=== PATIENT | female | born 1995 | race Caucasian/White ===

== ENCOUNTER 2018-07-05 14:06 | Emergency (ER) | payer OTHER, SELFPAY ==
[2018-07-05 14:07] VITALS: BP 111/63; PULSE 95; RESP 18; TEMP 36.7; O2SAT 95; BMI 41.0
[2018-07-05] MEDS: Lidocaine/Epi/Tetracaine 50 ML 1 APPLIC TOPICAL (15:25)
[2018-07-05] MEDS: Propofol 200 MG/20 ML Vial IV BOLUS (16:10)
[2018-07-05 16:15] VITALS: BP 110/65; BP 90/63; PULSE 84; PULSE 94; RESP 14; RESP 16; O2SAT 98; O2SAT 99
[2018-07-05 16:22] VITALS: BP 90/63; PULSE 86; RESP 16; O2SAT 97
[2018-07-05 16:26] VITALS: BP 94/64; PULSE 82; RESP 16; O2SAT 99
[2018-07-05] MEDS: HYDROcodone Bitartrate/Apap 5/325 Tablet PO (16:30)
[2018-07-05] MEDS: Ketorolac 30 MG/ML Syringe IV (16:31)
[2018-07-05 16:36] VITALS: BP 94/84; PULSE 84; RESP 16; O2SAT 99
--- NOTE | 2018-07-05 16:41 | ED.VISSUMM ---
- ER Visit Summary Date of Service: 07/05/18 Chief Complaint: Abscess History of Present Illness: The patient is a 22 F who noted a pilonidal abscess 1 week ago. She was seen in urgent care on the and started on Bactrim. She was seen again on the and had an I&D performed. She states yesterday it was feeling better, but last evening pain increased significantly. She was seen by her PCP and then at the surgery office today. Patient needs further I&D, but is requesting procedural sedation for this. She was sent to the emergency room. Physical Examination: Vital signs are unremarkable. Patient is lying prone in the bed. Heart is regular rate and rhythm. Lung sounds clear. Abdomen is soft nontender. Skin examination was a pilonidal abscess measuring approximately 1 x 4 cm without sign of surrounding cellulitis. Test Results: [] Emergency Department Course and Treatment: Patient was consented for I&D along with procedural sedation. Propofol was given by Dr. Chaves with a total of 130 mg given. I&D was performed after let and 1 cc of lidocaine. A 1.5 cm incision was made with a #11 blade. There is return of foul-smelling bloody pus. Wound was irrigated. Dressing is applied. She is given an injection of Toradol and 1 tab of p.o. Maben for pain. She will continue her antibiotics and she will be written a short course of Maben for pain. She will follow-up with Dr. Ybarra in the office. Treatment Plan: [] Disposition: Discharge Impression: 1. Pilonidal cyst status post I&D 2. Procedural sedation by ED physician This note was generated with [employer] dictation software. It may contain incorrect words, spelling, and punctuation that were not noted in review of the chart prior to signing ED Disposition - Plan for ED Patient: Chief Complaint: Abscess Referrals: Demetria Fernandez MD [Primary Care Provider] -
--- NOTE | 2018-07-05 16:43 | ED.DEP ---
ED Disposition - Plan for ED Patient: Disposition: Home or Assisted Living Chief Complaint: Abscess Instructions: ED Cyst Pilonidal Infected IandD Prescriptions: Hydrocodone Bitart/Apap 5-325 [[place] 5MG-325MG] 1 tablet PO Q4H PRN PRN 2 Days #10 tablet PRN Reason: Pain Referrals: Demetria Fernandez MD [Primary Care Provider] - 1 Week
--- NOTE | 2018-07-05 16:48 | DCINST.ED_ITS ---
ED Disposition - Plan for ED Patient: Disposition: Home or Assisted Living Chief Complaint: Abscess Instructions: ED Cyst Pilonidal Infected IandD Prescriptions: Hydrocodone Bitart/Apap 5-325 [[place] 5MG-325MG] 1 tablet PO Q4H PRN PRN 2 Days #10 tablet PRN Reason: Pain Referrals: Demetria Fernandez MD [Primary Care Provider] - 1 Week
--- NOTE | 2018-07-05 17:01 | DCINST.ED_ITS ---
ED Disposition - Plan for ED Patient: Disposition: Home or Assisted Living Chief Complaint: Abscess Instructions: ED Cyst Pilonidal Infected IandD Prescriptions: Hydrocodone Bitart/Apap 5-325 [[place] 5MG-325MG] 1 tablet PO Q4H PRN PRN 2 Days #10 tablet PRN Reason: Pain Referrals: Demetria Fernandez MD [Primary Care Provider] - 1 Week Prasad Sigala MD [STAFF PHYSICIAN] - 1 Week
[2018-07-05 17:03] VITALS: BP 106/58; PULSE 86; RESP 16; O2SAT 98
== END 2018-07-05 17:08 | disposition home or self-care (01) ==
PROVIDERS: Emergency Provider Emergency Medicine; Family Provider Internal Medicine; PCP Internal Medicine
DX: L05.01 Pilonidal cyst with abscess (principal); B96.89 Other specified bacterial agents as the cause of diseases classified elsewhere; M79.7 Fibromyalgia; F31.9 Bipolar disorder, unspecified; F60.3 Borderline personality disorder; Z72.0 Tobacco use
CPT/HCPCS: 10080; 96374; 99284; J7030; A4216

== ENCOUNTER 2018-07-09 10:26 | Emergency (ER) | payer OTHER, SELFPAY ==
[2018-07-09 10:29] VITALS: BP 110/45; PULSE 120; RESP 16; TEMP 37.6; O2SAT 98; BMI 40.1
[2018-07-09 10:39] VITALS: PULSE 113; RESP 18; O2SAT 97
[2018-07-09] MEDS: 0.9% Normal Saline 1,000 ML 1000 ML IV (11:12)
--- NOTE | 2018-07-09 11:17 | RAD_ITS ---
STUDY: X-RAY CHEST REASON FOR EXAM: Female, 22 years old. Cough and fever. TECHNIQUE: PA and lateral views of the chest. COMPARISON: None. FINDINGS: The lungs are clear and expanded. There is no demonstrated pleural abnormality. Normal size heart. Normal mediastinum and dar. Normal visualized pulmonary arteries. Normal visualized aortic arch and descending thoracic aorta. Normal visualized thoracic spine. Normal visualized ribs, clavicles, and shoulders. There is no demonstrated abnormality of the visualized soft tissue structures of the upper abdomen. RAD/Chest PA and Lateral IMPRESSION: Normal x-ray examination of the chest. Electronically Signed: Chan Melara MD at 12:24 EDT Tel [phone], Service support ,
[2018-07-09 11:29] LABS: Absolute Lymphocyte Count 0.65 X10^3/ul (0.83-4.51); Absolute Neutrophil Count 3.5 X10^3/uL (2.0-7.7); Basophil# 0.01 X10^3/uL; Basophil% 0.2 % (0-1); Eosinophil# 0.15 X10^3/uL; Eosinophils% 3.3 % (0-5); Hematocrit 43.2 % (37-47); Hemoglobin 14.6 g/dl (12.0-15.0); Lymphocyte # 0.65 X10^3/ul (4.0); Lymphocyte % 14.1 % (19-41); Mean Corp Hgb Conc 33.8 g/gl (32-36); Mean Corpuscular Hgb 28.7 pg (27.0-32.0); Mean Platelet Vol. 10.1 fl (6.2-12.0); Monocyte# 0.26 X10^3/uL; Monocyte% 5.7 % (0-10); Neutrophil # 3.49 X10^3/uL (2.7-7.7); Neutrophil % 75.8 % (47-70); Platelet Count 278 K/mm3 (150-450); RBC Distribution Width SD 40.2 fl (35.1-43.9); Red Blood Count 5.08 M/mm3 (4.2-5.4); White Blood Count 4.6 K/mm3 (4.4-11.0)
[2018-07-09 11:31] LABS: Mucous, Urine 0 SEEN /hpf (<or=2+); POSITIVE COUNT NO; POSITIVE DIFFERENTIAL NO; POSITIVE MORPHOLOGY NO; Red Blood Cells-Urine 0 SEEN /hpf (0-5)
[2018-07-09 11:35] LABS: Color, Urine Yellow (Yellow); Glucose, Dipstick Normal (Normal); Ketone-Dipstick Negative (Negative); Leukocyte Esterase-Dipstick 500 /ul (Negative); Nitrite-Dipstick Negative (Negative); Occult Blood-Urine 50 /ul (Negative); Protein-Dipstick 30 mg/dl (Negative); Specific Gravity, Urine 1.015 (1.002-1.030); Urine Clarity Sl. Cloudy (Clear); Urine Urobilinogen 1 mg/dl (Normal)
[2018-07-09 11:36] LABS: Internal QC Validated? YES +Cl - CLEAR BKGD; Pregnancy, Urine Negative Negative
[2018-07-09 11:37] LABS: Urine Bilirubin Dipstick 1 mg/dL (Negative)
[2018-07-09 11:40] LABS: ALB/GLOB Ratio 0.9 RATIO (0.9-2.4); AST(SGOT) 23 U/L (15-37); Alanine Aminotransfer ALT/SGPT 26 U/L (13-56); Albumin, Serum 3.9 g/dL (3.2-5.0); Alkaline Phosphatase 96 U/L (45-117); Anion Gap 8 (5-15); BUN 14 mg/dL (7-18); BUN/Creat Ratio 11.8 RATIO (10-20); Calcium,Total 8.8 mg/dL (8.5-10.1); Chloride 100 mmol/L (98-107); Creatinine, Serum 1.19 mg/dL (0.55-1.02); EST Glomerular Filtration Rate 60 mL/min (>60); Est Glom Filt Rate - Afr Amer 72 mL/min (>60); Estimated Creatinine Clearance 58.15 ml/min; Globulin 4.3 g/dL (2.2-4.2); Glucose 83 mg/dL (74-106); Potassium 4.2 mmol/L (3.5-5.1); Protein, Total 8.2 g/dL (6.4-8.2); Sodium Level 134 mmol/L (136-145)
[2018-07-09 11:41] LABS: White Blood Cells 0-5 SEEN /hpf (0-5)
[2018-07-09 11:42] LABS: Bacteria 1+ /hpf (None Seen); Squamous Epithelial Cells - UA 5-10 SEEN /hpf (5-10)
--- NOTE | 2018-07-09 12:11 | ED.VISSUMM ---
- ER Visit Summary Date of Service: 07/09/18 Chief Complaint: Fever History of Present Illness: The patient is a 22 F who presents with a fever that began this morning. Patient states her temperature at home was 102.1. Patient took Tylenol approximately 2 hours prior to arrival. Patient had incision and drainage of a pilonidal cyst days ago. Patient is currently on Bactrim. Patient admits to some nausea and vomiting. Patient denies any urinary complaints. Patient denies any chest pain or shortness of breath. Patient admits to a slight cough. Patient admits to occasional headaches. Physical Examination: Vital signs are stable except for mild tachycardia of 120. Patient is afebrile here with a temperature of 99.6. Patient is in no acute distress. Oral mucosa is pink and moist. Neck is supple. Trachea is midline. There is no JVD or lymphadenopathy noted. Heart was regular and tachycardic. Lungs are clear and equal bilaterally. There is good respiratory effort noted. Abdomen is soft. Bowel sounds are normal. There is no tenderness. There is no guarding noted. Skin is warm and dry. There is an healing incision over the sacrum in the midline. There is no active drainage. There is no erythema. There is minimal tenderness. The remaining physical exam is within normal limits. Test Results: CBC, basic metabolic profile, urinalysis, and influenza swabs were obtained and were essentially within normal limits. PA and lateral chest x-ray was obtained. There is no evidence of acute cardiopulmonary process. Emergency Department Course and Treatment: Patient was given IV fluids here. Patient was instructed to continue her Bactrim as previously prescribed. Patient was instructed to follow-up with her primary care physician in 5-7 days. Patient and family understood and were agreeable with the plan. All questions were answered. Disposition: Discharge home Impression: Acute febrile illness This note was generated with [employer] dictation software. It may contain incorrect words, spelling, and punctuation that were not noted in review of the chart prior to signing ED Disposition - Plan for ED Patient: Disposition: Home or Assisted Living Chief Complaint: Fever Diagnosis: Acute febrile illness Instructions: ED Fever Unconf Cause Referrals: Demetria Fernandez MD [Primary Care Provider] -
[2018-07-09 12:38] VITALS: BP 121/51; PULSE 95; RESP 18; TEMP 36.9; O2SAT 97
== END 2018-07-09 12:39 | disposition home or self-care (01) ==
PROVIDERS: Emergency Provider Emergency Medicine; Family Provider Internal Medicine; PCP Internal Medicine
DX: R50.9 Fever, unspecified (principal); F32.9 Major depressive disorder, single episode, unspecified; F41.9 Anxiety disorder, unspecified; E66.9 Obesity, unspecified; Z68.41 Body mass index [BMI] 40.0-44.9, adult; Z79.899 Other long term (current) drug therapy; Z72.0 Tobacco use
CPT/HCPCS: 71046; 80053; 81001; 81025; 85025; 87804; 96360; 99283; J7030

== ENCOUNTER 2018-07-13 00:02 | Emergency (ER) | payer OTHER, SELFPAY ==
[2018-07-13 00:04] VITALS: BP 134/75; PULSE 124; RESP 24; TEMP 36.9; O2SAT 100; BMI 41.4
[2018-07-13 00:13] VITALS: BP 161/81; PULSE 119; RESP 16; O2SAT 97
[2018-07-13 00:38] LABS: Absolute Lymphocyte Count 0.88 X10^3/ul (0.83-4.51); Absolute Neutrophil Count 2.6 X10^3/uL (2.0-7.7); Basophil# 0.01 X10^3/uL; Basophil% 0.3 % (0-1); Eosinophils% 2.6 % (0-5); Hematocrit 37.6 % (37-47); Hemoglobin 13.1 g/dl (12.0-15.0); Lymphocyte # 0.88 X10^3/ul (4.0); Lymphocyte % 23.2 % (19-41); Mean Corp Hgb Conc 34.8 g/gl (32-36); Mean Corpuscular Hgb 28.4 pg (27.0-32.0); Mean Corpuscular Volume 81.6 fL (81-99); Monocyte# 0.22 X10^3/uL; Monocyte% 5.8 % (0-10); Neutrophil # 2.56 X10^3/uL (2.7-7.7); Neutrophil % 67.6 % (47-70); Platelet Count 296 K/mm3 (150-450); RBC Distribution Width CV 12.7 % (11.6-14.6); RBC Distribution Width SD 37.7 fl (35.1-43.9); Red Blood Count 4.61 M/mm3 (4.2-5.4); White Blood Count 3.8 K/mm3 (4.4-11.0)
--- NOTE | 2018-07-13 00:38 | ED.DCSUM_ITS ---
- ER Visit Summary Date of Service: 07/13/18 Chief Complaint: Body pain, fever History of Present Illness: The patient is a 22 F who was seen for sedation and I&D of a pilonidal cyst in the ER on July 05. She was started on Bactrim. Patient returned on the with fevers up to 102 and generalized rash. Her workup was unremarkable. Patient states the rash is somewhat improved. She complains of generalized body aches and pains and thinks that all of this recently has flared up her lupus. She states her fevers are improving but not completely resolved. She is post to follow-up with her doctor tomorrow for reevaluation of her pilonidal cyst. Physical Examination: Blood pressure is 134/75, temperature 98.5, heart rate 124, respiratory rate 24, pulse ox 100% on room air. Patient is sitting upright in bed. She is anxious and tearful. Head neck examination is unremarkable. Heart is regular rhythm but tachycardic. Lung sounds are clear. Abdomen is soft nontender. Skin examination reveals generalized skin erythema over her trunk and extremities. There is no evidence of urticaria. There are no target lesions or vesicles. Test Results: CBC is normal other than a white count of 3.8. Chemistry studies reveal a sodium of 132 and potassium 3.4. Urinalysis shows no sign of acute infection. Emergency Department Course and Treatment: Patient was initially given IV fluids, Toradol, and Ativan. She complained that this made her pain worse and was given p.o. [place]. Area of previous I&D for her pilonidal cyst was cleansed and examined. There is a small amount of serosanguineous drainage. There is no sign of infection. Dressing was reapplied. I explained to the patient that I am concerned that she has a Bactrim drug rash and fever. She is insistent that this is secondary to her lupus. I advised her that she could stop her Bactrim. We will give her a prednisone taper for her lupus flare. She was given names of rheumatologists at [facility] whom she has seen in the past for follow-up. Treatment Plan: [] Disposition: Discharge Impression: 1. Bactrim drug reaction 2. Hypokalemia, mild 3. Lupus flare This note was generated with [employer] software. It may contain incorrect words, spelling, and punctuation that were not noted in review of the chart prior to signing ED Disposition - Plan for ED Patient: Disposition: Home or Assisted Living Chief Complaint: Shortness of Breath Instructions: ED Systemic Lupus Erythematosis Prescriptions: Prednisone 10 mg PO DAILY #63 tablet Referrals: Demetria Fernandez MD [Primary Care Provider] - Additional Instructions: List of rheumatologists provided
[2018-07-13 00:39] LABS: POSITIVE COUNT NO; POSITIVE DIFFERENTIAL NO; POSITIVE MORPHOLOGY NO
[2018-07-13] MEDS: 0.9% Normal Saline 1,000 ML 150 ML IV (00:40)
[2018-07-13] MEDS: LORazepam 2 MG/ML Syringe 0.5 MG IV (00:40)
[2018-07-13] MEDS: Ketorolac 30 MG/ML Syringe IV (00:40)
--- NOTE | 2018-07-13 01:04 | ED.RN ---
PT C/O PAIN IS WORSE AND IT'S SHOOTING AND MOVING ALL OVER NOW. WILL NOTIFIED DR ARIAS
[2018-07-13 01:05] LABS: Anion Gap 10 (5-15); BUN 13 mg/dL (7-18); BUN/Creat Ratio 16.9 RATIO (10-20); Calcium,Total 8.3 mg/dL (8.5-10.1); Chloride 99 mmol/L (98-107); Creatinine, Serum 0.77 mg/dL (0.55-1.02); EST Glomerular Filtration Rate 99 mL/min (>60); Est Glom Filt Rate - Afr Amer 119 mL/min (>60); Estimated Creatinine Clearance 89.87 ml/min; Glucose 91 mg/dL (74-106); Potassium 3.4 mmol/L (3.5-5.1); Sodium Level 132 mmol/L (136-145)
--- NOTE | 2018-07-13 01:10 | ED.RN ---
DR ARIAS NOTIFIED OF PT PAIN ISSUES
[2018-07-13] MEDS: HYDROcodone Bitartrate/Apap 5/325 Tablet PO ×2 (01:18→01:59)
--- NOTE | 2018-07-13 01:21 | ED.RN ---
PT STATES NOBODY EVERY ASKED ME ABOUT ALL MY SYMPTOMS. DR ARIAS NOTIFIED
--- NOTE | 2018-07-13 01:33 | ED.DEP ---
ED Disposition - Plan for ED Patient: Disposition: Home or Assisted Living Chief Complaint: Shortness of Breath Instructions: ED Systemic Lupus Erythematosis Prescriptions: Prednisone 10 mg PO DAILY #63 tablet Referrals: Demetria Fernandez MD [Primary Care Provider] - Additional Instructions: List of rheumatologists provided
[2018-07-13 01:54] LABS: Color, Urine Yellow (Yellow); Glucose, Dipstick Normal (Normal); Ketone-Dipstick 50 mg/dl (Negative); Leukocyte Esterase-Dipstick 25 /ul (Negative); Nitrite-Dipstick Negative (Negative); Occult Blood-Urine 150 /ul (Negative); Protein-Dipstick 30 mg/dl (Negative); Specific Gravity, Urine 1.015 (1.002-1.030); Urine Clarity Sl. Cloudy (Clear); Urine Urobilinogen 1 mg/dl (Normal)
[2018-07-13 01:55] LABS: Urine Bilirubin Dipstick 1 mg/dL (Negative)
[2018-07-13 02:01] LABS: Squamous Epithelial Cells - UA 5-10 SEEN /hpf (5-10)
[2018-07-13 02:02] LABS: Bacteria RARE /hpf (None Seen); Mucous, Urine 1+ /hpf (<or=2+); White Blood Cells 0-5 SEEN /hpf (0-5)
[2018-07-13 02:03] VITALS: BP 127/76; PULSE 127; RESP 16; O2SAT 98
[2018-07-13 02:04] LABS: Red Blood Cells-Urine 0-5 SEEN /hpf (0-5)
--- NOTE | 2018-07-14 10:29 | CM.ED ---
ED CALLBACK: Follow-up call placed to patient. Patient states she has not yet had a chance to berry picker her prescription. Patient states she cannot find her thermometer, so she is unsure if she has a fever. However, she states the pain is subsiding a little. Patient states she will be able to berry picker her prescription today and denies any needed assistance or questions.
== END 2018-07-13 02:04 | disposition home or self-care (01) ==
PROVIDERS: Emergency Provider Emergency Medicine; Family Provider Internal Medicine; PCP Internal Medicine
DX: R52 Pain, unspecified (principal); R50.2 Drug induced fever; L27.0 Generalized skin eruption due to drugs and medicaments taken internally; T37.0X5A Adverse effect of sulfonamides, initial encounter; E87.6 Hypokalemia; M32.9 Systemic lupus erythematosus, unspecified; M79.7 Fibromyalgia; F31.9 Bipolar disorder, unspecified; Z79.899 Other long term (current) drug therapy; Z72.0 Tobacco use
CPT/HCPCS: 80048; 81001; 85025; 96361; 96374; 96375; 99284; J7030; A4216

== ENCOUNTER 2018-10-11 07:39 | Day surgery (SDC) | payer OTHER, SELFPAY ==
--- NOTE | 2018-10-11 | PILCYST_PTH ---
PATIENT: INNA COPELAND [place] [facility] [id number] AGE/SX: 22/F ROOM: RE10/11/[address]: Dr. Prasad Sigala MD : [id number] BED: DIS: 10/11/2018 SPEC #: [id number] RECD: 10/11/18 11:41 STATUS: AIME DEBBIE #: [id number] FEMI: 10/11/18 00:[address]: Prasad Sigala DEPT: SURGICAL PATHOLOGY RECD BY: Ilan Metzger ENTERED: 10/11/18 11:44 SP TYPE: Pilonidal OTHR DR: MD Demetria De Jesus MD Tissues: PILONIDAL TISSUE Procedures: Surgery Specimen Level III HEADER OPERATION: Excision pilonidal cyst PRE-OP DIAGNOSIS: Pilonidal cyst without abscess TISSUE SUBMITTED: Pilonidal cyst and sinus tract MICROSCOPIC DIAGNOSIS Pilonidal cyst and sinus tract, excision: Consistent with inflamed pilonidal cyst and sinus tract with associated reactive change. AM:devon 10/12/18 MICROSCOPIC DESCRIPTION Slides are reviewed. GROSS DESCRIPTION Received in fixative is one container labeled with the patient's name and designated pilonidal sinus tract. The specimen consists of an elongated fragment of pink-hicks soft tissue with attached fibrofatty tissue measuring 5.5 x 2 cm and a depth of excision measuring 2 cm. The cutaneous surface contains an ulcerated/exposed area measuring 2 x 0.5 cm in greatest dimension. Serial sections do not reveal mass lesions. Under Cutter sections are submitted in two cassettes. / AM:devon 10/11/18 TC:2 CPT: 09925
[2018-10-11 08:05] VITALS: BP 103/49; PULSE 70; RESP 16; TEMP 37.1; O2SAT 98; BMI 33.7
[2018-10-11 08:06] LABS: Internal QC Validated? YES +Cl - CLEAR BKGD; Pregnancy, Urine Negative Negative
[2018-10-11] MEDS: Bupivacaine Mpf 0.5% 30 ML VIAL (10:00)
[2018-10-11] MEDS: Neomycin/Bacitracin/Polymyxin Ointment 1 APPLIC (10:10)
--- NOTE | 2018-10-11 10:10 | OP.PCM_ITS ---
Report of Operation Date of Procedure: 10/11/18 Pre-Operative Diagnosis: recurrent pilonidal cyst Post-Operative Diagnosis: recurrent pilonidal cyst Surgery/Procedure Performed:: excision of pilonidal cyst center director lead teacher: None Type of Anesthesia:: General Anesthesiologist: Roger Osullivan Specimen's removed: pilonidal cyst and tract Estimated Blood Loss (mL): 20 Fluids Replaced: 400 Description of Procedure: The patient was brought to the operating suite. Sign in was performed verifying patient, site, procedure, position, and DVT prophylaxis with SCDs. Patient received 100 mg of clindamycin for antibiotic prophylaxis. Following induction of general anesthetic. The patient was transferred to supine position to the prone jackknife position with care being taken to avoid pressure points. The patient?s pilonidal area was then prepped and draped in the usual fashion. Timeout was performed verifying patient site procedure position. Local anesthetic was injected around the planned excision site. The central sinus was injected with hydrogen peroxide. Following this an elliptical incis ion was made and dissection carried down through cleaned the fat planes down to the space just anterior to the coccyx. The excised sinus tracts were then examined and noted to have no lateral projections or leakage when injected with hydrogen peroxide. The base of the excised tract was clean and hemostasis obtained with electrocautery. the site was packed with Betadine soaked gauze. A dressing was applied and mesh pants were used to hold the dressing in place. The patient was returned to the supine position and extubated and brought to recovery room in stable condition. the patient has a history of multiple psychiatric issues. Last night she perform self mutilation via multiple sharp knife cuts on her right breast and upper chest. In speaking to the patient and her family, she has been hearing more voices feels there are people and/or animals in her house trying to get her. She has not been taking her medications. At this point in time we are having psychiatric services evaluate the patient postoperatively and will plan for either inpatient or intensive outpatient treatment depending upon placement options.
--- NOTE | 2018-10-11 10:13 | DCINST_ITS ---
Discharge Diet: No Restrictions Discharge Activity: No Restrictions, May Shower Call your doctor if your incision/area has: Continuous Slow Oozing, Sudden Increased Bleeding, Increased Pain/ Swelling Additional Dressing/Incision Instructions:: remove packing tomorrow. repack with clean moist to dry gauze twice a day and as needed. sitz baths or shower when changing dressings Allergies/Adverse Reactions: Allergies diphenhydramine [From Benadryl] Adverse Reaction (Verified 10/08/18 10:01) Other KEEPS ME UP methylphenidate [From Ritalin] Adverse Reaction (Verified 10/08/18 10:01) Other BOUNCING OFF THE CARMEN Medications to take at Discharge Hydroxychloroquine Sulfate [Plaquenil] 200 mg PO BID 10/08/18 Primary Care Physician: Demetria Fernandez MD [Primary Care Provider] - Test Results: Test results from this visit will be discussed in further detail at your follow- up appointment, if applicable. Please Follow Up With: Prasad Sigala MD - 1 week
[2018-10-11 10:18] VITALS: BP 103/49; BP 103/77; PULSE 65; RESP 16; TEMP 36.2; O2SAT 93
[2018-10-11 10:30] VITALS: BP 103/49; BP 114/69; PULSE 75; RESP 16; O2SAT 96
[2018-10-11 10:47] VITALS: BP 103/49; PULSE 75; RESP 16; TEMP 36.3; O2SAT 95
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
--- NOTE | 2018-10-11 15:05 | CASEMGMT ---
Social Work Specialist Wound Care 1330 [facility] Spoke with Meri of need for consult and reviewed patient?s presenting situation, concerns for safety. Meri must address and emergent issue in the community first. Meri reports someone will be present to [facility] as soon as possible. 1400 Went back to patient?s room to discuss call to crisis and reasons behind decision to call (Dr. Sigala also in support of looking at inpatient treatment for patient). Patient sleeping soundly. Decision made to allow patient to sleep as this is something identified as struggle for patient recently. Note, other stressors would be that patient previously identified are work hours and some of the people patient works with. Spoke with parents and let know that looking interventions for this patient. Asked the father for clarification, further details of patient's reported paranoia. The father Russell shares that after this investigative writer left the room the patient talked more freely and indicated ?they? have been on patient?s roof. The father reports patient has been talking about ?they? are moving cameras around in the patient?s client?s home to ?get at? patient. The father also reports patient has been taking pictures of the snow and finding meaning in this relating to ?they? are being after patient. The father reports that patient?s thought process has not been logical. Addressed with the parent?s the patient?s though process that could not take psych medications until on Lupus medications. The father reports that does not know about this thought process, uncertain whether this is true or not. The mother reports that patient had new prescription for Lupus, sitting at the pharmacy for a couple of weeks and didn?t clam picker until the day before surgery. Emotional support offered to parents and thanked for support to patient at this time. Updated nursing staff. Spoke with Dr. Sigala who would like to be called with final outcome of assessment. Doctor in support at looking at option of inpatient treatment for this patient. 1430 Received call from Michelle [facility] at [facility]. Updated Michelle to what has been happening with patient. Michelle reports will come over right away. Patient still sleeping. Updated nursing staff. Plan: Await crisis consult. -ANTONIETTA Espinoza, BARREL PLANER
--- NOTE | 2018-10-11 16:00 | CASEMGMT ---
Social Work Test Rack Operator Spoke with Michelle from [facility] who is on unit to assess patient. Michelle was in room talking with patient's parents but stepped out at this aligner typewriter' request. Provided Michelle with a brochure for [facility] to give to parents, as this was an option discussed earlier today. Also let Michelle know that Dr. Sigala would like to be called with an update on disposition. Michelle agrees to contact. No other services requested or indicated. Plan: per crisis evaluation disposition will be made. -ANTONIETTA Espinoza, SETUP TECHNICIAN
[2018-10-11 16:39] VITALS: BP 103/49; BP 116/72; PULSE 73; RESP 16; TEMP 36.2; O2SAT 96
== END 2018-10-11 17:01 | disposition home or self-care (01) ==
LOC: SDC 07:41 → AC 07:43
PROVIDERS: Anesthesiology; Family Provider Internal Medicine; PCP Internal Medicine; Referring Provider Surgery; Visit Provider Surgery
PROC: (CPT 11770; principal; 2018-10-11 08:45)
DX: L05.91 Pilonidal cyst without abscess (principal); F31.9 Bipolar disorder, unspecified; F60.3 Borderline personality disorder; F90.1 Attention-deficit hyperactivity disorder, predominantly hyperactive type; F41.9 Anxiety disorder, unspecified; M32.9 Systemic lupus erythematosus, unspecified; M79.7 Fibromyalgia; M35.00 Sjogren syndrome, unspecified; F12.90 Cannabis use, unspecified, uncomplicated; F17.200 Nicotine dependence, unspecified, uncomplicated; E66.01 Morbid (severe) obesity due to excess calories; Z68.33 Body mass index [BMI] 33.0-33.9, adult; Z72.89 Other problems related to lifestyle; Z91.5 Personal history of self-harm; Z79.899 Other long term (current) drug therapy
CPT/HCPCS: 11770; 81025; 88304; J7120; J2405

== ENCOUNTER 2019-10-24 09:00 | Outpatient (RCR) | payer OTHER, MEDICAID, SELFPAY ==
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
--- NOTE | 2019-10-24 11:18 | BH.SGPN.GN ---
Behaviors/Verbalizations/Mental Status: []Client alert and oriented, casually dressed and dishevelled. Eye contact good. Motor activity appropriate. Speech within normal limits. Affect congruent, mood anxious and depressed. Thoughts linear, logical, no signs of hallucinations or delusions. Client Response/Progress/Benefit: []Client?engaged during session AEB client providing contributions throughout group session, taking notes, and actively listening during thought challenging activity. At times struggling to remain on topic or allow others an opportunity to contribute. Client acknowledged the importance of needing to have awareness and put forth the effort to challenge, reframe, and replace distorted thought patterns. Connected with comments regarding difficulties in challenging use of negative self-talk and discussed she has struggled with emotional reasoning throughout her life. Shared this leads to impulsivity. Client worked cooperatively with group to challenge example distorted thought and was attentive in learning strategies to combat distortions. Client reported connecting with distortion of disqualifying the positive, emotional reasoning, and catastrophizing most and identified a distorted thought she will practice reframing. Client seemed to benefit from increased awareness of cognitive distortions and practicing reframing distorted thoughts. Client to continue IOP level of care to challenge negative thoughts, reduce depression and impulsivity, improve boundary setting, and prevent decompensation. Narrative Note: []
--- NOTE | 2019-10-25 14:51 | BH.MTP ---
Master Treatment Plan - Patient Information Program Physician:: Dr. Coni Hendricks Primary Therapist:: Cecelia Nazario - Psychiatric Diagnoses Psychiatric Diagnoses:: Borderline personality disorder; bipolar disorder, NOS; generalized anxiety disorder; PTSD Diagnosis Code(s):: F60.3 - Estimated LOS Estimated LOS (in weeks):: 6 Problem/Goal #1 - Problem/Goal #1 Stated Goal:: Client will reduce depressive symptoms, suicidal ideation, feelings of hopelessness, and anhedonia due to Major Depressive Disorder through Intensive Outpatient Program. Description of Barriers: Client reports a trauma related history which has impacted mental health, relationship with supports, and ability to cope in healthy ways. Client currently reports struggling with chronic depression which has led to difficulties in connecting with others, increased isolation, and distorted thought patterns impacting self-esteem. Reports finding limited maggie in things. Client additionally has a hx of chronic suicidal ideation, self-harming behaviors, and emotional lability. Denies current self-harm urges of SI. Reports she has had difficulties in regulating her emotions and often jumps straight to crisis when overwhelmed or in distress. Client has limited healthy supports in the area. Functional Impact: Patient is a 23-year-old single female who presents with a history of bipolar 1 disorder, PTSD and borderline personality disorder. Pt [facility] her boyfriend almost broke up with her. She currently lives in a house with her boyfriend and 3 dogs, a cat and a rabbit. She has a hx of medication noncompliance and has been off of her psych meds since February 2019. 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 She decreased describes increasing depression, anxiety, racing thoughts in the past 18 months. Pt reports current stressors include her current boyfriend almost breaking up with her few weeks ago, losing her job, and their roommate moving out recently. For primary support she has her boyfriend and her parents. She endorses occasional hopelessness and always has worthlessness. Pt endorses a depressed and anxious mood, negative thinking, anhedonia, low motivation, and irritability. Identified goals for treatment as: improve ability to cope with her emotions, improve self-esteem, improve application of healthy communication and boundary setting, and decrease depression. Will continue IOP to prevent decompensation, maintain safety, improve daily functioning, and increase mood stability. Current mental health sx are impacting pt occupational, social, and financial areas, as well as impeding her ability to function at baseline. Goal Relevant Strengths/Supports: Client is motivated to improve her mental health, has some insight, has experience in the mental health tx environment, is friendly, and is open to trying new tx approaches - Objectives Objective #1 Stated Objective: Pt will reduce negative thinking and improve self-confidence levels impating depression. Interventions: Through groups and individual therapy, pt will be provided with education on cognitive distortions, mistaken beliefs, and identifying and combating negative self-talk. Therapist will assist pt with getting back into the activities she once enjoyed as well as increasing healthy coping strategies. Discharge Criteria: Pt will have met this goal when she is able to report reduced negative thoughts and improved ability to identify and challenge distorted thought patterns. Target Date: 12/05/19 Review Date: 11/21/19 Objective #2 Stated Objective: Pt will decrease depressive symptoms by learning and utilizing 2-3 healthy coping strategies to manage depressive symptoms and reduce negative thinking, AEB pt?s score on the DSM 5 cross-cutting measure and improve pt?s daily functioning. Interventions: Therapist will assist client in learning internal coping strategies and thought challenging skills to manage depressive symptoms, along with helping client identify triggers. Discharge Criteria: Client will have achieved this goal when can verbalize and has practiced at least 2 healthy coping strategies and report reduced depressive thinking. Pt?s score on the DSM 5 cross cutting measure for depression has been decreased and per pt?s report daily functioning has improved. Target Date: 12/05/19 Review Date: 11/21/19 Problem/Goal #2 - Problem/Goal #2 Stated Goal:: Reduce overall frequency, intensity, and duration of the anxiety so that daily functioning is not impaired. Description of Barriers: Client reports a trauma related history which has impacted mental health, relationship with supports, and ability to cope in healthy ways. Client currently reports struggling with chronic depression which has led to difficulties in connecting with others, increased isolation, and distorted thought patterns impacting self-esteem. Reports finding limited maggie in things. Client additionally has a hx of chronic suicidal ideation, self-harming behaviors, and emotional lability. Denies current self-harm urges of SI. Reports she has had difficulties in regulating her emotions and often jumps straight to crisis when overwhelmed or in distress. Client has limited healthy supports in the area. Functional Impact: Patient is a 23-year-old single female who presents with a history of bipolar 1 disorder, PTSD and borderline personality disorder. Pt was referred to IOP by her [facility] after her boyfriend almost broke up with her. She currently lives in a house with her boyfriend and 3 dogs, a cat and a rabbit. She has a hx of medication noncompliance and has been off of her psych meds since February 2019. 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 She decreased describes increasing depression, anxiety, racing thoughts in the past 18 months. Pt reports current stressors include her current boyfriend almost breaking up with her few weeks ago, losing her job, and their roommate moving out recently. For primary support she has her boyfriend and her parents. She endorses occasional hopelessness and always has worthlessness. Pt endorses a depressed and anxious mood, negative thinking, anhedonia, low motivation, and irritability. Identified goals for treatment as: improve ability to cope with her emotions, improve self-esteem, improve application of healthy communication and boundary setting, and decrease depression. Will continue IOP to prevent decompensation, maintain safety, improve daily functioning, and increase mood stability. Current mental health sx are impacting pt occupational, social, and financial areas, as well as impeding her ability to function at baseline. Goal Relevant Strengths/Supports: Client is motivated to improve her mental health, has some insight, has experience in the mental health tx environment, is friendly, and is open to trying new tx approaches - Objectives Objective #1 Stated Objective: Client will manage moments of increased stress and anxiety by learning to identify 2-3 warning signs and triggers for when becoming overwhelmed and implement 2-3 calming skills and problem solving strategies to realistically addressing worries. Interventions: Therapist will encourage client to use self-awareness strategies and assist client in identifying times of day, or specific thinking patterns indicating potential warning signs/triggers for increased anxiety. Therapist will teach client problem-solving strategies involving defining a problem, brainstorming solutions, selecting and implementing various solutions as well as calming interventions for reducing anxiety. Discharge Criteria: Client will have met this goal when can identify at least 2 warning signs and 2 triggers for increased stress and anxiety. When recognizing warning signs pt will be able to implement 2-3 problem solving and calming strategies for reducing anxiety and realistically addressing worries. Target Date: 12/05/19 Review Date: 11/21/19 Objective #2 Stated Objective: Pt will decrease anxiety symptoms AEB pt?s score on the DSM 5 cross-cutting measure and improve pt?s daily functioning. Interventions: Through groups and individual therapy, pt will be provided with education on calming skills, anxiety management strategies, warning signs and triggers. Therapist will assist pt with getting back into the activities he once enjoyed as well as increasing healthy coping strategies. Discharge Criteria: Pt will have met this goal when pt?s score on the DSM 5 cross cutting measure for depression has been decreased and per pt?s report daily functioning has improved. Target Date: 12/05/19 Review Date: 11/21/19
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
--- NOTE | 2019-10-26 09:00 | BH.COMM ---
Communication Note - Communication with Client Communication Note: Pt called in to cancel IOP for today. Was scheduled to meet with psychiatrist. Will be at program on 10/28/19
--- NOTE | 2019-10-28 09:00 | BH.SGPN.GN ---
Behaviors/Verbalizations/Mental Status: []Client alert and oriented, disheveled appearance. Eye contact good. Motor activity appropriate. Speech within normal limits. Affect constricted, mood dysthymic. Thoughts linear, logical, no signs of hallucinations or delusions. Reviewed client?s symptom tracker. Client was 1/5 for thoughts of suicide and 0/5 for risk of suicide. Client Response/Progress/Benefit: []Client responded well to session, attentive and providing supportive statements. Client reports feeling exhausted today. Client reported multiple stressors today contributing to her exhaustion which included lack of sleep last night, not having a job, and financial stress. Client stated despite those stressors, she is not hopeless. Client just started IOP this week and stated the first day helped so much. Client reported she wants to continue to learn coping skills and think before she speaks. Client identified getting to group today as a win because she did not feel like getting out of bed this morning. Appeared to benefit from connecting with peers and being social rather than isolating today. No progress to document at this time. Will continue IOP tx to prevent decompensation, improve mood stability, and increase healthy coping skills. Narrative Note: []
--- NOTE | 2019-10-28 11:16 | BH.SGPN.GN ---
Addendum entered and electronically signed by Cecelia Nazario LSW 10/30/19 18:14: Client responded well to session, active participant AEB providing input and taking notes throughout. Client contributed as the group processed the activity. Shared that encouragement from others and challenging her own negative thoughts helped the group accomplish the activity. Client completed the fear of failure worksheet and reported that fear of failure is keeping her from trusting others. Client reported her barriers for overcoming her fear of failure are insecurities, past memories, self-doubt, and difficulties regulating emotions. Client did well to identify things to say or do to help overcome fear of failure which included: coming to IOP group, challenging negative thought, improving communication with supports, and using mindfulness skills. Client appeared to benefit from gaining awareness of barriers and identifying strategies to reduce fear of failure. Client showing progress in ability to connect tx materials to own life. Client is recommended continued IOP tx to improve mood stability, increase communication with supports and application of emotion regulation skills, and prevent decompensation. Original Note: Behaviors/Verbalizations/Mental Status: []Client alert and oriented, casually dressed, disheveled. Eye contact good. Motor activity appropriate. Speech within normal limits. Affect congruent, mood euthymic. Thoughts linear, logical, no signs of hallucinations or delusions. Client Response/Progress/Benefit: [] Narrative Note: []
--- NOTE | 2019-10-31 09:04 | BH.SGPN.GN ---
Behaviors/Verbalizations/Mental Status: []Eye contact is good. Motor activity is appropriate. Appearance is casual, disheveled. Speech is WNL. Mood is anxious, depressed. Affect is congruent. Thoughts are linear and logical. No evidence of psychosis. Reviewed daily check in sheet and no reports of suicidal ideations or intent Client Response/Progress/Benefit: []Pt responded well to session, engaged throughout and willing to process with group. Reports emotion for the day as ?anxious and emotional?. Pt identified current mental health wins as being able to overcome a setback this morning , though indicated not wanting to share further. Expressed that communication and emotion regulation when stressed continue to be stressors for her. Receptive of group support and provided insight regarding impact of lack of self-care on ability to self-regulate. Additional win identified as challenging negative thoughts when plans were changed this morning, though reported struggling to consistently do so. Benefited from support of the group. Progress variable as pt reports improved mood, though continues to report difficulties regulating her emotions which impacts progress. Recommended continued IOP tx to promote healthy change behaviors, improve emotion regulation, and reduce overall mental health sx severity. Narrative Note: []
--- NOTE | 2019-10-31 09:56 | BH.MDN_ITS ---
Multi-Disciplinary Note - Note 45-min Individual Time Started:: 11:37 Date: 11/01/19 Purpose of session/treatment goals addressed:: Purpose of session was to assess pt's current symptoms and stressors impacting mental health. Additional topics included: healthy relationships and communication, as well as strategies for reducing self-deprecating thoughts impacting depression. Eye Contact:: Good Motor Activity:: Restless Appearance:: Disheveled Speech:: Appropriate Mood:: Anxious, Depressed Affect:: Full Thoughts:: Linear, Logical, No evidence of hallucinations/delusions noted Staff Interventions:: Therapist used open ended questions to elicit pt's current symptoms and stressors. Provided supportive feedback and normalized pt concerns and frustrations. Therapist provided psychoeducation about depression and anxiety and impact of negative self-talk on reinforcing depressive sx. Introduced CBT components of thought challenging and gave homework to begin thought log. Additionally, provided psychoeducation regarding healthy communication and strategies for improving communication. Therapist used IN techniques to work with pt on eliciting change behaviors. Client Response:: Pt responded well to session, actively engaged throughout. Pt was tearful as she discussed having a ?really bad weekend? and struggling again this morning. Shared that this had been related to her Meza?s Day plans being unexpectedly changed. Pt shared she had planned to spend time alone with her boyfriend as she was recently released from residential, and was unable to do so due to pt and her boyfriend not communicating expectations. Pt shared that she did not discuss her frustrations with her boyfriend and instead indicated that things were fine. Able to provide insight that lack of communication may have led to the argument they later had Thursday evening and again this morning. Pt shared feeling that the relationship is unhealthy. Provided insight that she believes this is due to poor communication causing unnecessary conflict and r esulting in pt not getting her needs met, difficulties in establishing healthy boundaries, and pt struggling with fears of abandonment. Expressed ?giving in? when her boyfriend asks for something due to not wanting him to break-up with her. Able to identify impact this has on self-esteem and reinforcing distorted thinking patterns. Shared that she often struggles with going from one extreme, such as shutting down, to another, blowing up. Noted this has impacted her relationship with her boyfriend as well as with outside supports. Shared knowledge that fear of abandonment, self-harm, and boundaries are characteristics of Borderline Personality Disorder and noted a desire to learn more about her diagnosis as well as strategies for managing common characteristics. Willing to begin completing daily thought log to begin working on challenging distorted thinking patterns. Risks/Concerns:: Pt denies current suicidal ideation, plan or intention to date, 10/31/19. Indicated an ability to maintain safety and willingness to reach out to supports should she feel unable to maintain safety at any time. Progress Toward Goals/Plan:: Progress noted, though limited. Pt reports experiencing an influx in low self-esteem and emotion dysregulation over the weekend. Insight into what contributed to inability to manage stressors but reports not utilizing healthy means of coping to reduce stress or communicate needs with her supports. Pt noted increased awareness of distorted thought patterns and is abile to connect this to maintaining/reinforcing depressive sx related to self-esteem; however, indicates difficulties in challenging or reframing these thoughts. Additionally, pt shared difficulties in communicating with supports when feeling upset or ignored and instead shut down later resulting in conflict. Pt reports relationship discord; however, notes beliefs that her boyfriend would be unwilling to attend a family session. Pt recommended to continue IOP to increase ability to challenge negative thoughts, reduce depression, and prevent decompensation. Time Stopped:: 12:20
--- NOTE | 2019-10-31 10:15 | BH.SGPN.GN ---
Behaviors/Verbalizations/Mental Status: []Eye contact is good. Motor activity is appropriate. disheveled in appearance and poor hygiene. Speech is Appropriate. Mood is depressed and anxious. affect is constricted. Thoughts are linear and logical. No evidence of psychosis. Client Response/Progress/Benefit: []Pt was an active participant AEB pt providing input during discussion, engaged in activity and listened attentively to others. Pt connected with peers that ending a unhealthy relationship is an extremely difficult choice, but staying seems easier but will worsen the problem. Worked with peers to identify and define pitfalls in mental health. Attentive on psycho-education on the impact of how one charo with or manages pitfalls in regards to mental health. Group worked together to identify what keeps us stuck or vulnerable to pitfalls which included; loss of motivation, fear of unknown, anxiety, unhealthy coping, self-sabotage, self-fulfilling prophecy, impatience, and self-doubt. Pt stated avoidance of making difficult decisions has kept her stuck for a long time. Benefited from increased awareness on the impact that pitfalls can have on mental health. Narrative Note: []
--- NOTE | 2019-11-02 09:02 | BH.NA ---
Physical Data - Vital Signs Temperature: 98.0 F Pulse Rate: 96 Respiratory Rate: 18 Blood Pressure: 112/60 - Height/Weight Height: 1.57 m Weight:: 113.852 kg - standing scale Weight in Pounds: 251.0 lbs Current Medication Compliance - Medication Compliance Do you take your medication as prescribed?: No - client has not taken medications regularly in several months Nutritional History - Appetite Nutritional Instructions:: If client shows signs of a swallowing problem, weight change of 10 pounds or more in the last month, or is on a diabetic diet, the physician will review and request a dietitian consult, as appropriate. All unintentional weight loss will be referred to the physician for decision on need for dietitian consult. Describe your appetite:: Good - client states she eats large amounts at times when food is available Functional Assessment - Sleep Pattern Describe any problems with sleeping: Client states she stays up a lot at night by choice. Client states if she wants to sleep at night, she easily falls asleep. Client reports 3-8 hours of sleep on average. Client reports she has a CPAP at home but only uses it at times, client states she has a lot of anxiety about using the CPAP. - Activities Motor Activity:: Functional Sensory/Communication Assess - Communication Problems Do you have difficulty understanding what people are saying?: No Medical Problems/History - Respiratory Conditions Comments:: obstructive sleep apnea- has cpap but only uses sometimes - Neurological Conditions Neurological: Other (See comments) Comments:: neuropathy - Musculoskeletal Conditions Musculoskeletal: Other (See comments) Comments:: lupus, Sjorens - Family History Comments:: client states great grandmother, grandmother and mother all have bipolar Surgical History - Surgical History Have you had any surgeries? If so, list type and date:: Yes - cyst removal, left wrist fracture, left index finger Substance Abuse - Substance Abuse Please describe substance abuse in the last 30 days:: Client states alcohol use social, maybe one time per month maximum. States she is an everyday cigarrette smoker, reports smoking 0.5 pack per day and states she has been smoking about 7 years. Client states she rarely uses marijuana if she is having a very hard time sleeping. Mental Status Summary - Mental Status Significant Findings/Observations on Appearance and Mood:: Client is alert and oriented x 4. Client is casually groomed, appears mildly disheveled. Client is cooperative with assessment, makes good eye contact during conversation. Client talks slightly fast at times. Clients voice is clear, but volume changes at times. Client appears moderately anxious during assessment, stating she is anxious about group sessions. Client makes logical associations, is a decent historian about her history. Client appears to have normal processing. Client denies delusions or hallucinations. Client with fair attention during assessment, frequently checking her phone. Client denies SI. Suicide Assessment - Suicidal Ideation Are you currently or have you been suicidal in the past?: Yes - client denies current SI Suicidal Intentional Rating Scale (SIRS): Suicidal thoughts (past) Physician Notification: If Active suicidal thoughts/Will not contract for safety is checked, contact physician and document in the Physician Notification section below. Past Psychiatric History - MH Treatment Hx Past Psychiatric Medications:: Client states she has been on and off medication since she was 2 years old. Client states she has taken Ativan, Vyvanse, Trileptal, Seroquel, and Adderall in the past. Age of first mental health symptoms: Client states she was diagnosed with bipolar at the age of 2. Client states she was showing signs then, and has an extensive family history of bipolar. Client states she was diagnosed with borderline personality in 2013, but states she had been diagnosed prior but My mom didn't believe it, so I of course believed my mom. When I was diagnosed again in 2013, I started to read about it and thought it for sure sounded like me. Describe (age, circumstance, etc) any past hospitalizations: Client has a history of 4 hospitalizations, most recent in 2016 at [facility]. Client states she had a cutting suicide attempt in the fall of 2019 but was not hospitalized. Current providers for mental health treatment (counselor, psychiatrist, telephonic nurse case manager, etc.): None Fall Risk Assessment - Age Age: Less than 60 - Mental Status Mental Status: Willing & able to ask for assistance when needed - Physical Status Physical Status: No problems - Impairments Impairments: None - Elimination Elimination: Continent AND independent - Gait or Balance Gait or Balance: Walks independently - Hx of Falls History of falls in the past 6 months: No known history - Medications/Substances Medications/substances used within the past 24 hours or ordered to administer: None of the medications/substances list above - Total Score Total Points:: 0 RN Summary of Impressions - Impressions Recommendations: Include psychiatric and medical issues, treatment planning recommendations, and discharge planning needs. Impressions: Psychiatric Issues: Borderline personality disorder. bipolar disorder, unspecified. Generalized anxiety disorder. PTSD. - Level of Care How do the client's current symptoms and functional deficits support need for this level of care?: Client reports long history of mental health issues. Client states recently has been having stressor of her boyfriend, who was recently in [facility]. Client reports varied emotions, crying spells, decreased energy, anhedonia, racing thoughts, daily feelings of panic. Client states she has not taken any of her medications in several months. Client has many medication bottles with her of past prescriptions, including Klonpin 1mg tabs, Zoloft, Wellbutrin, Flexeril, Plaquenil, and many vitamins. Client has a long history of self injurous behavior, stating she last burnt herself at the beginning of October. Client reports she has not cut herself in 1-2 months. Client has a scab on right upper arm from burn, scab is healing. Client's emotions seem varied even during assessment, sometimes talking very fast and sometimes more slow and seemed to be upset. Client reports a lot of anxious thoughts about being around other people in group therapy, stating new people make her feel anxious. IOP will promote gains and prevent further decompensation while providing social support and skills training.
[2019-11-02 11:05] VITALS: BP 112/60; PULSE 96; RESP 18; TEMP 36.7
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
--- NOTE | 2019-11-02 14:27 | BH.PSY.EVA_ITS ---
Initial Treatment Plan - Patient Information Visit Information: ADMISSION DATE: EXPECTED LOS: 4-6 weeks - Problems/Symptoms Problem #1:: Depression Symptom:: Down mood, anhedonia, decreased energy and concentration, worthlessne ss Problem #2:: Anxiety Symptom:: Rumination, worry, exagerrated startle, nightmares, flashbacks
--- NOTE | 2019-11-04 10:16 | BH.SGPN.GN ---
Behaviors/Verbalizations/Mental Status: []Client alert and oriented, casually dressed, disheveled. Eye contact good. Motor activity appropriate. Speech within normal limits. Affect congruent, mood euthymic and anxious. Thoughts linear, logical, no signs of hallucinations or delusions. Client Response/Progress/Benefit: []Pt active participant as shown by contribution to discussion and positive insight provided. Pt shared connecting to group topic of self-care. Expressed that she believes self-care is important but struggles with implementation. Pt helped the group discuss benefits of self-care. Benefits included; improved relationships, maintaining stability, less stress, increased self-esteem, and improved mood. Pt participated in the discussion of the common myths about self-care including self-care is selfish, just pampering, too much effort and time, and is self-indulgent. Client participated in the discussion on debunking of these myths. Client seemed to benefit from increased awareness of the importance of self-care and challenging common myths that prevent practicing self-care. Discussed at times struggling to remind herself to practice consistent utilization of self-care as she fears being seen as selfish or feels guilty. Able to identify this impacts her self-worth as a result and maintains depression. Client showing progress as shown by client?s report of improved mood stability and reduced depression, continues to struggle with anxiety. Will continue IOP tx to promote gains and to further decrease negative thinking, improve distress tolerance, as well as prevent decompensation. Narrative Note: []
--- NOTE | 2019-11-04 11:20 | BH.SGPN.GN ---
Behaviors/Verbalizations/Mental Status: []Client alert and oriented, casually dressed and groomed. Eye contact good. Motor activity appropriate. Speech within normal limits. Affect congruent, mood anxious, depressed. Thoughts linear, logical, no signs of hallucinations or delusions. Client Response/Progress/Benefit: []Client receptive of session, actively listening and contributing to discussion. Participated in group activity and connected that maintaining self-care requires balancing life stressors and making oneself a priority. Willing to complete worksheet activity and helped the group identify various types of self-care activities. Client completed self-assessment activity on the different areas of self-care and was able to identify current practices she uses and identify areas she can improve upon. Client reported she can improve her physical self-care area. Client set a goal to improve in the area of physical and psychological self-care. Client?s goal is to ?try staying consistent with taking medication and continue coming simon IOP groups.? Client appeared to benefit from increasing awareness of how she can improve her self-care balance. Progress noted as shown by client?s ability to connect with materials and improved insight. Will continue IOP tx to promote mood stability, increase consistent use of coping skills, and improve overall functioning. Narrative Note: []
--- NOTE | 2019-11-07 09:05 | BH.SGPN.GN ---
Behaviors/Verbalizations/Mental Status: []Pt alert and orient x3. Eye contact good. Motor activity is appropriate. Appearance is casual, disheveled. Speech is Appropriate. Mood is dysthymic, anxious. Affect is congruent. Thoughts are linear and logical. No evidence of psychosis. Reviewed daily check in sheet and no reports of suicidal ideations or intent. Pt responded well to session AEB pt listening attentively to others and providing feedback throughout. Pt reported current emotion as ?confused? and indicated this is due to difficulties in processing a stressor she would prefer not to discuss in group. Shared attempting to challenge these thoughts and reframe but has had increased difficulties in doing so. Additional stressor noted as decreased quality time her boyfriend has available to spend his her. Shared feeling frustrated and like she is not a priority. Receptive of supportive feedback and suggestions from the group. Pt did well to identify mental health wins. Indicating a mental health positive was being able to do a few things around the house which aided in distracting herself from ruminating thoughts. Pt identified additional positive as being able to focus on why she want to work on her mental health in order to motivate her to come to IOP group today. Noted reduced anxiety as progress, but continues to struggle with consistent emotion regulation. Pt appearing to benefit from ongoing support provided by group. Pt recommended to continue IOP to increase healthy coping, challenge distorted thoughts and prevent decompensation. Client Response/Progress/Benefit: [] Narrative Note: []
--- NOTE | 2019-11-07 11:20 | BH.SGPN.GN ---
Behaviors/Verbalizations/Mental Status: []Client alert and oriented, disheveled appearance. Eye contact good. Motor activity appropriate. Speech within normal limits. Affect congruent, mood euthymic. Thoughts linear, logical, no signs of hallucinations or delusions. Client Response/Progress/Benefit: []Client responded well to session, attentive and engaged throughout session. Group discussed the mental health benefits of recognizing strengths which included; improved self-esteem, better coping skills, and improved mood. Client stated it is not always easy to recognize her strengths, especially when she is anxious. Group shared that if one does not recognize their strengths, it could lead to increased mental health symptoms, isolation, and giving up on goals. Client able to identify personal strengths she possesses which included; curiosity, self-awareness, empathy, being open-minded, and gratitude. Client stated she is really proud of herself for becoming more self-aware as it has helped client learn about her mental health and cope better. Group discussed strategies to build and improve strengths which included; practicing self-compassion, affirmations, applying strengths or ?use them,? self-care, and keeping track of wins. Appeared to benefit from recognizing personal strengths and identifying strategies to improve strengths. Progress noted as shown by client's report of practicing self-talk statements. Will continue IOP tx to prevent decompensation, improve emotional regulation coping skills, and reduce negative thinking. Narrative Note: []
--- NOTE | 2019-11-07 15:17 | BH.MDN ---
Multi-Disciplinary Note - Note 45-min Individual Time Started:: 10:45 Date: 11/07/19 Purpose of session/treatment goals addressed:: Purpose of session was to assess pt's current symptoms and stressors impacting mental health and tx progress. Other topics included: boundaries, self-confidence, and developing affirmations. Eye Contact:: Good Motor Activity:: Appropriate Appearance:: Disheveled Speech:: Appropriate Mood:: Anxious, Depressed Affect:: Full Thoughts:: Linear, Logical, No evidence of hallucinations/delusions noted Staff Interventions:: Therapist used open ended questions to elicit pt's current symptoms and stressors. Therapist assisted pt with identifying ways her thoughts impact her view of self and reinforce sx of depression and anxiety. Discussed how distortions additionally impact ability to set boundaries with self and others. Therapist coached pt on ways to challenge negative thoughts about self by creating affirmations and identifying related boundaries. Therapist discussed with pt and aided in challenging fear of being a burden. Therapist provided pt with homework to continue identifying affirmational statements for identified distortions. Client Response:: Pt requested to meet with this therapist as she noted having a new stressor she feels needs attention. Pt reported overall her weekend was stressful and she has been struggling with anxiety and negative thoughts related to a new stressor. Pt described that her father has recently received a lot of negative publicity associated with his position in the local school district. Pt indicated increased anxiety as a result and noted she has been constantly checking Facebook to see if any new comments have been left. Able to identify this behavior is reinforcing her anxiety and causing increased rumination, as well as resulting in pt beginning to personalize. Pt shared her fears are additionally reinforced by conversations she has had with her mother who has indicated that pt need to stay inside as much as possible to reduce having to answer questions or giving people reasons to talk more negatively about her father. Pt expressed knowing that isolating will only continue to maintain depression. She shared wanting to be able to advocate for her dad and challenge the negative comments being made. Pt discussed feeling an obligation to support her father as she indicates believing that it is her fault he is receiving negative feedback. Explained that she had struggled with behavioral issues and being suspended while in high school which pt feels shines a negative light on her father. Additionally, discussed that she struggles with thinking her ongoing mental health issues and difficulties on securing employment places a burden on her father and takes away from time for his job. Pt expressed her father and mother both have attempted to help her challenge these thoughts but to no avail. Shared struggling to find positives about herself which often leads to personalization and feeling like a burden. Shared not believing affirmations in the past. Worked with therapist identifying distortions and reframing these thoughts into more realistic and believable affirmational statements she can place around her house. Risks/Concerns:: Pt continues to have passive thoughts of . Denies current suicidal ideation, plan or intention to date. Progress Toward Goals/Plan:: Progress noted with pt reporting overall reduction in anxiety outside of recent stressor experienced. Reports increased awareness of her distorted thinking and is attempting to challenge, however continues to struggle significantly in this area. Pt continues to struggle with feeling she is a burden. This keeps her isolated and seeking reassurance from others which results in them feeling irritated and thus further reinforces her depressed symptoms. Pt recommended to continue IOP to improve mood stability, increase use of healthy coping skills and prevent decompensation. Time Stopped:: 11:31
--- NOTE | 2019-11-11 09:00 | BH.SGPN.GN ---
Behaviors/Verbalizations/Mental Status: [] Eye contact is good. Motor activity is appropriate. Appearance is casual. Speech is Appropriate. Mood is euthymic. Affect is full. Thoughts are linear and logical. No evidence of psychosis. Reviewed daily check in sheet and no reports of suicidal ideations or intent Client Response/Progress/Benefit: [] Pt was an active participant in group discussion. Provided appropriate feedback. Emotion for today is peaceful. Shared with the group that her mental health has been great the past few days. Reports being calmer, not reacting as much, less anxious, more energetic, and more confident in her ability to manage mood. Increased motivation. Notes that she completed her dishes, which she has not done in several months. Smiling. Improved communication with supports. No panic attacks in 2 days. Believes that improvements are related to challenging thoughts and different perspectives. Utilizing skills. Benefited from group support and encouragment. Will continue in IOP to maintain safety, prevent decompensation, and maintain gains. Narrative Note: []
--- NOTE | 2019-11-11 11:15 | BH.SGPN.GN ---
Behaviors/Verbalizations/Mental Status: []Pt eye contact good, casually dressed, motor activity appropriate, speech normal rate and tone, mood dysthymic, constricted affect, thoughts linear and intact, no evidence of delusions or hallucinations. Client Response/Progress/Benefit: []Pt engaged participant throughout group AEB pt providing input throughout discussion and engaged in activity. Pt initially did well to challenge herself to complete the group activity and incorporate anger management/emotion regulation skills in order to do so. After struggling with being unsuccessful many times during activity pt did quit because stated she lost interest. Pt later recognized quitting is what she does when can't accomplish something quickly. Pt worked with the group to identify the various barriers faced in the activity as well as skills used to successfully complete the task at hand without becoming dysregulated or uncontrollably angry. Group brainstormed with group healthy coping skills to help manage anger which included: mindfulness, crying, walking, exercise, talking to support and petting an animal. She appeared to benefit from brainstorming with the group potential strategies to manage anger in healthy ways. Pt identified plans to work on using healthy distractions to help manage her anger in a healthy manner. Recommended continued IOP to increase healthy coping, improve emotion regulation, and prevent decompensation. Narrative Note: []
== END 2019-11-12 23:59 ==
LOC: BHIOP 09:00
PROVIDERS: PCP Internal Medicine; Referring Provider Psychiatry & Neurology Psychiatry; Visit Provider Psychiatry & Neurology Psychiatry
DX: F60.3 Borderline personality disorder (principal); F31.9 Bipolar disorder, unspecified; F41.1 Generalized anxiety disorder; F43.10 Post-traumatic stress disorder, unspecified; M32.9 Systemic lupus erythematosus, unspecified; M35.00 Sjogren syndrome, unspecified; Z79.899 Other long term (current) drug therapy; M79.7 Fibromyalgia; G62.9 Polyneuropathy, unspecified; E66.9 Obesity, unspecified; Z62.810 Personal history of physical and sexual abuse in childhood; F12.90 Cannabis use, unspecified, uncomplicated; Z72.89 Other problems related to lifestyle
CPT/HCPCS: 90792; H0035; H2012; H2020; T1002; 90834

== ENCOUNTER 2019-11-14 09:00 | Outpatient (RCR) | payer OTHER, MEDICAID, SELFPAY ==
--- NOTE | 2019-11-11 10:13 | BH.SGPN.GN ---
Behaviors/Verbalizations/Mental Status: []Client alert and oriented, casually dressed and groomed. Eye contact good. Motor activity appropriate, at times appearing restless. Speech within normal limits. Affect congruent, mood euthymic. Thoughts linear, logical, no signs of hallucinations or delusions. Client Response/Progress/Benefit: []Client was an active participant AEB providing input throughout session and listening attentively to peers. At times struggling with interrupting others or speaking out of turn, however did well to espond to redirection. The group discussed the quote and how the emotion anger is not good or bad, but one can respond to anger in healthy or harmful ways. Client worked with the group to define anger and its causes, as well as the internal and external impacts of anger. Group identified potential consequences of unhealthy management of anger to include: losing relationships, guilt, decreased self-esteem, lashing out, and worsening mental health symptoms. Client identified underlying factors of her anger which included: feeling lost, invalidated, depressed, exhaustion, stress, or feeling out of control. Client stated isolating, slamming things, arguing, getting an attitude with others, and silence as responses she has when feeling angry. Benefited from group by increasing awareness of the negative impacts of unmanaged anger and underlying factors that contribute to anger. Progress noted as client reports increased ability to identify and begin challenging distorted thought patters. Will continue IOP tx to prevent decompenation, promote healthy change behaviors, and improve mood stability. Narrative Note: []
[2019-11-13 01:04] VITALS: BP 112/60; PULSE 96; RESP 18; TEMP 36.7
--- NOTE | 2019-11-14 09:00 | BH.SGPN.GN ---
Behaviors/Verbalizations/Mental Status: [] Eye contact is good. Motor activity is appropriate. Appearance is casual. Speech is Appropriate. Mood is euthymic. Affect is full. Thoughts are linear and logical. No evidence of psychosis. Reviewed daily check in sheet and no reports of suicidal ideations or intent. Client Response/Progress/Benefit: [] Pt was an active participant in group discussion. Pt shared that she is more tired than usual however is not depressed. Overall notes lack of motivation and energy. She is unsure if this has to due with adjusting to her medications or not. Continues to be active in working on her mental health noting improved communication with her BF. Daily symptom tracker notes 2/5 for agitation. Benefited from group support, encouragement, and feedback. Will continue in IOP to prevent decompensation, stabilize mood, and improve daily functioning to return to work. Narrative Note: []
--- NOTE | 2019-11-14 10:20 | BH.SGPN.GN ---
Behaviors/Verbalizations/Mental Status: []Eye contact is good. Motor activity is appropriate. Appearance is casual, disheveled. Speech is Appropriate. Mood is euthymic and anxious. Affect is congruent. Thoughts are linear and logical. No evidence of psychosis. Client Response/Progress/Benefit: []Participated throughout group discussion, providing input and listening actively. At times struggling with interrupting others however did well to respond to redirection. Engaged during psychoeducation portion reviewing fixed mindset. Provided an example of a fixed mindset thought related to her relationships with others. Pt worked with group to identify how a fixed mindset can impact our mental health which included: decreased hope, giving up when faced with a setback, not asking for help, low self-esteem, and isolation/avoidance. Pt identified one fixed thought she has is, Everyone always leaves me. She identified this fixed thought makes her doubt herself and assume no one care about her. Recognized that this fixed thought results in isolation and continues to maintain depression. Benefited from group by increasing awareness of how one's mindset impacts mental health. Pt to continue IOP level of care to increase utilization of healthy coping skills, challenge distorted thoughts, and prevent decompensation. Narrative Note: []
--- NOTE | 2019-11-14 11:25 | BH.SGPN.GN ---
Behaviors/Verbalizations/Mental Status: []Pt eye contact good, casually dressed, motor activity appropriate, speech normal rate and tone, mood dysthymic, constricted affect, thoughts linear and intact, no evidence of delusions or hallucinations. Client Response/Progress/Benefit: []Client engaged during discussion and listened attentively to peers. Client worked on using cognitive restructuring to reframe fixed thought from previous session to a growth thought. Client chose to not share her growth thought with the group. Client shared her fixed thoughts have led to self-sabotage and missed opportunities. Client participated as the group brainstormed strategies to promote growth-mindset thinking. Benefitted from discussing benefits of growth mindset and brainstorming strategies for prompting growth-mindset. Will continue IOP tx to continue use of healthy coping, improve boundaries and prevent decompensation. Narrative Note: []
--- NOTE | 2019-11-16 10:15 | BH.SGPN.GN ---
Behaviors/Verbalizations/Mental Status: [] Eye contact is good. Motor activity is appropriate. Appearance is casual. Speech is Appropriate. Mood is euthymic. Affect is full. Thoughts are linear and logical. No evidence of psychosis. Client Response/Progress/Benefit: [] Active participant in group discussions. Attentive during psycho-education. Worked with peers to provide input on definition of social stigma and discussed some common stigma associated with mental health which included; laziness, labeled as crazy, attention-seeking, lying, making excuses, they belong locked up, and they are unstable. Group also discussed the impact of this stigma which includes; making them feel less than others, causes more depression, leads to isolation, reinforces negative beliefs, and often they believe the labels placed on them. Group also identified ways that they reinforce mental health stigmas by; making jokes about it, not standing up for themselves, and by minimizes their symptoms. Benefited from group though increased insight and awareness on mental health stigma and its impact. Will continue in IOP to maintain safety, prevent decompensation, stabilize mood, and improve daily functioning. Narrative Note: []
--- NOTE | 2019-11-16 16:06 | BH.MDN ---
Multi-Disciplinary Note - Note 45-min Individual Time Started:: 11:37 Date: 11/16/19 Purpose of session/treatment goals addressed:: The purpose of this session was to address current symptoms, stressors, and negative thoughts. Another goal was to review and challenge fixed thinking patterns and cognitive distortions. Other topics included DBT [place] Mind skill. Eye Contact:: Good Motor Activity:: Appropriate Appearance:: Disheveled - unbathed, Casual Speech:: Appropriate Mood:: Anxious, Dysthymic Affect:: Full Thoughts:: Linear, Logical, No evidence of hallucinations/delusions noted Staff Interventions:: Therapist used active listening and open-ended questions to explore client's current stressors, symptoms, treatment progress, and negative thoughts. Therapist reviewed with client list of fixed thoughts she identified as struggling with and aided her in identifying how to challenge and reframe each using a growth mindset. Therapist provided psychoeducation on DBT concept of [place] Mind. Therapist worked with client on identifying questions she can use to challenge her distorted or fixed thoughts. Therapist gave client homework to practice reframing of distortions and fixed thinking patterns. Client Response:: Client responded well to session, open to meeting with therapist. Client shared yesterday was rough, I was very emotional and client reported struggling to self-regulate as a result. Went on to note that she had not slept the night before as she waited until her boyfriend got off work at 11pm for them to go shopping together. Discussed that this is a way in which they get to spend time together and that although it affects her sleep routine, she is unwilling to give it up. Client shared that she slept most of the day yesterday as a result and was more hungry than usual as she had not eaten all day. Able to identify that altered sleep routine and increased hunger may have resulted in more difficulties with self-regulating as well as resulted in increased negative thinking. Pt went on to describe that she has continued to struggle with negative thinking on a daily basis which impacts her self-esteem as well as ability to trust and feel supported by her supports. Pt expressed connecting with the IOP group on Thursday reviewing Growth vs. Fixed mindsets and shared that she has recognized several fixed thoughts contributing to her mood over the past few days. Pt showed therapist a list of fixed thoughts she wrote down and attempted to reframe using growth mindset strategies; however, indicated struggling in doing so. Pt expressed that thoughts related to situations or others were easier to reframe but was unable to do so with thoughts about herself. Receptive of going through each thought and working with therapist to reframe. Identified self-worth as her biggest area in which she struggles to challenge thoughts but that making an effect to reflect upon small daily wins helps to reduce self-deprecation some. Risks/Concerns:: Client denies any active suicidal ideations, plan, or intent as of 11/16/19. Hopeful and future oriented throughout session. 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 Progress Toward Goals/Plan:: Client appears to be responding well to treatment and making some progress towards treatment goals. Client continues to report difficulties in consistent application of skills learned and often struggles with responding to triggers based on immediate emotion rather than using distress tolerance skills to self-regulate and calm prior to responding. Client reports increased use of supports and daily journaling of her areas of progress. Client continues to struggle with ruminations, crying spells, poor boundaries, and negative thinking. Client responding well to continuing to work on reframing and challenging her thoughts. Will continue IOP tx to improve mood stability, promote healthy coping skills and boundaries, and reduce negative thinking. Time Stopped:: 12:11
--- NOTE | 2019-11-22 14:52 | BH.COMM ---
Communication Note - Communication with Client Communication Note: Therapist contacted pt to check-in and confirm plans to attend scheduled IOP group date for tomorrow, Thursday, as she was not in attendance for IOP group on Thursday due to not sleeping the night before. Pt expressed continued issues with not sleeping due to various factors including nighttime routine. Expressed plans to attend group on Thursday and is aware she is scheduled to meet with program psychiatrist at that time as well. Indicates willingness to address barriers to sleep during individual session scheduled for 11/22 as well.
--- NOTE | 2019-11-23 14:58 | BH.COMM ---
Communication Note - Communication with Client Communication Note: Pt scheduled for IOP on this date however cancelled due to not getting any sleep the night before and feeling unable to drive to group as a result. Pt was therefore unable to meet for individual session or psychiatry appointment scheduled on this melissa as well. Importance of consistent attendance on tx progress and barriers to maintaining consistent attendance will be addressed with pt.
--- NOTE | 2019-11-23 15:03 | BH.TPR ---
Treatment Plan Review Date of Admission:: 10/24/19 Date of Treatment Plan Review:: 11/23/19 Admitting Diagnoses:: Borderline personality disorder; bipolar disorder, NOS; generalized anxiety disorder; PTSD Current Diagnoses:: Borderline personality disorder; bipolar disorder, NOS; generalized anxiety disorder; PTSD Patient's Response to Treatment:: Since beginning the [facility] tx program, Pt has displayed semi-active levels of engagement in the treatment process. Pt has maintained engaged in group and individual sessions when in attendance; however, attendance has often been inconsistent throughout due to issues with sleep and interpersonal problems. When in attendance. pt has done well to remain an active participant in both individual and group sessions, provides supportive feedback, and is able to make connections with material presented. She has at times struggled with interrupting others and monopolizing conversation in the group setting, but reports increased awareness and is doing well to begin making increased efforts to apply more active listening skills and share the floor. Pt has initially had some issues with medication compliance but most recently has remained more consistent with psychiatric medication compliance, though would benefit from increased focus on routine in this area. Throughout admission in IOP treatment, she has been willing to regularly completes homework, ask he supports for additional feedback, and engages in self-reflection. Status of Current Problems and Symptoms: Pt has made inconsistent progress in treatment which may be impacted by inconsistent attendance, difficulties in setting boundaries with supports (specifically her boyfriend), and ongoing issues in utilization of coping skills when faced with external stressors. She has made some improvement in overall ability to regulate emotions, reduce use of unhealthy coping mechanisms, and is working to improve. Additionally, pt has seen a 48% reduction in DSM-5 scores, specifically in depressive sx, as well as severity and duration of anxiety. She indicates fewer crisis moments due to emotion dysregulation, better use of healthy communication, and continues to work on challenging distorted thought patterns. Pt continues to struggle with setting boundaries and continues to experience interpersonal conflict and reduced sleep as a result. Additionally, pt notes difficulties with motivation which reinforces pt?s desire to isolate and reduces application of behavior activation skills. Problem #1 Problem Name:: Depression Status of Goals:: Partially complete. Pt is making progress on this objective AEB reduction in DSM-5 cross-cutting scores and self-report. Obj 2- Partially Complete. Pt reports a reduction in overall depressive sx and reports reduction of SI, increased positive mood, and improved desire to engage in more activities she used to enjoy; however, struggles with consistent application of skills learned which my be impacting overall ability to make sustainable gains. Pt have additionally seen a 63% reduction on DSM-5 scores in overall sx for depression. Obj 1 - Pt is able to actively identify negative self-talk messages and with assistance can practice reframing and thought challenge strategies; however, continues to report struggling with negative thoughts during times of high stress or when faced with unexpected changes, and struggles to utilize healthy coping skills on a consistent basis. Team Recommendations:: Client encouraged to continue working on this treatment goal to reinforce healthy coping skills and continue to further decrease symptoms of depression. Client and therapist currently working on thought challenging and practicing calming skills. Will continue IOP tx to maintain gains and continue to decrease depression related sx. Problem #2 Problem Name:: Anxiety Status of Goals:: Partially complete. Pt continues to make inconsistent strides in reduction of anxiety sx. Notes a reduction in anxiety overall and per DSM-5 scores has seen a 30% decrease in symptomology; however, has struggled in managing anxiety while facing disagreements with her boyfriend as well as when experiencing unexpected stressors and often struggles with catastrophizing. Obj1- Pt reports awareness of some of her anxiety triggers though could benefit from continued focus on increasing self-awareness; reports knowing some warning signs. Pt indicates an increase in ability to identify healthy coping and distress tolerance skills; however, struggles with independently applying coping skills. Pt still needs some work in this area. Obj 2: Complete. Pt has seen a 30% reduction in DSM-5 crosscutting scores for anxiety but could benefit from further focus on consistent skill application to experience continued sx reduction Team Recommendations:: Client encouraged to continue working on this treatment goal to reinforce healthy coping skills and continue to further decrease symptoms of anxiety. Client and therapist currently working on thought challenging and practicing calming skills. Will continue IOP tx to maintain gains and continue to decrease anxiety related sx.
--- NOTE | 2019-11-24 10:13 | BH.SGPN.GN ---
Behaviors/Verbalizations/Mental Status: []Client alert and oriented, casually dressed, grooming disheveled. Eye contact good. Motor activity appropriate. Speech within normal limits. Affect congruent, mood anxious and dysthymic. Thoughts linear, logical, no signs of hallucinations or delusions. Client Response/Progress/Benefit: []Client receptive of session, attentive in discussion and activity. At times struggling with speaking over others or off-topic comments, however responded well to redirection. Client discussed the quote and provided input that not managing emotions can lead to turning to unhealthy means of coping such an distancing self from others. Client helped group identify barriers that impact one?s ability to communicate when emotions are high. These barriers included; increased stress, fear of confrontation or conflict, making assumptions, and distorted thoughts. Client participated in the activity and did well to manage her emotions while giving directions and encouragement to others. Client appeared to benefit from increasing awareness of how emotions can impact communication and practicing in the moment coping skills. Progress noted as client has been demonstrating improved use of coping skills in the moment while in the group activity however continues to struggle with application outside group environment. Will continue IOP tx to further increase emotion regulation, improve coping and communication, and improve daily functioning. Narrative Note: []
--- NOTE | 2019-11-24 11:15 | BH.SGPN.GN ---
Behaviors/Verbalizations/Mental Status: []Client alert and oriented, casually dressed and fair grooming. Eye contact good. Motor activity appropriate. Speech within normal limits. Affect congruent to topic being discussed, mood euthymic. Thoughts linear, logical, no signs of hallucinations or delusions. Client Response/Progress/Benefit: []Client engaged in session AEB client listening attentively to peer and providing input at times during session. Attentive during psychoeducation on 4 zones of regulation. Client able to identify how she feels in each zone as well as how she acts in each zone. Client able to identify what behaviors she exhibits when in the different emotional zones. Group identified coping skills can use to support self in each zone which included: doing something enjoy, being social, journaling, opposite action, self-care, and self-talk. Client stated she is most often in a low state of alertness or a heightened state of alertness. Client recognized her emotions can go from 0 to 100 quickly and she doesn't know how to regulate emotions. Client stated she will focus on utilizing opposite action skill to help when in low state of alertness. Benefited from increased education on zones of regulation or stages of alertness for emotions and healthy coping skills to use for each zone. Will continue IOP tx to improve emotional regulation, increase consistent use of healthy coping skills and prevent decompensation. Narrative Note: []
--- NOTE | 2019-11-24 16:24 | BH.MDN ---
Multi-Disciplinary Note - Note 45-min Individual Time Started:: 09:12 Date: 11/24/19 Purpose of session/treatment goals addressed:: The purpose of this session was to address client's current symptoms, stressors, and identify barriers to consistent tx attendance. Another goal was to aid client in practicing emotion regulation skills in the moment. Eye Contact:: Good - tearful throughout Motor Activity:: Appropriate Appearance:: Disheveled Speech:: Appropriate Mood:: Anxious, Depressed Affect:: Full Thoughts:: Linear, Logical, Racing, No evidence of hallucinations/delusions noted Staff Interventions:: Therapist used active listening and open-ended questions to explore client's current stressors, symptoms, and worries. Utilized CO techniques to aide pt in identifying barriers to progress and impacting treatment attendance. Therapist provided emotional support and supportive feedback. Therapist gently challenged client?s use of distorted thinking patterns. Therapist provided psychoeducation on distress tolerance skills and guided pt through 5-senses skill to calm herself and return to baseline when emotionally overwhelmed. Client Response:: Client receptive to session, openly discussed current symptoms and stressors impacting mental health. Pt shared feeling emotional and overwhelmed on this date as she indicates having had a stressful week so far. Shared she has been struggling with getting enough sleep as she often waits for her boyfriend to return from work before going to bed. Pt explained her boyfriend works second shift and often does not get hoe from work until at least midnight. Shared that on the days he works late or visits a friend after work, pt is up with ruminating thoughts that her boyfriend is intentionally avoiding her. Pt reports awareness of use of distorted thought patterns but struggles to challenge them in the moment. Expressed knowing that these thoughts as well as ongoing inconsistent sleep schedule may further decrease ability to self-regulate during times of increased stress. While discussing strategies to reduce isolation during day and improve sleep schedule, pt received a distressing text message and became visibly distraught. Pt became tearful, began breathing more quickly, and expressed panic. Able to walk through guided imagery and 5-senses skills to calm down and return to baseline. 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 Receptive of discussing strategies for communicating difficult news and distress tolerance skills for in the moment. Pt shared often struggling with emotion regulation during times of uncomfortable or confrontational conversations. Shared connecting with mindfulness strategies to take a break and regulate before responding. Open to begin implementing skills used in session during her daily life to maintain regulated. Risks/Concerns:: Client denies any suicidal ideations, plan, or intent as of this date 11/24/19. Protective factors include family and boyfriend. Progress Toward Goals/Plan:: Client's progress continues to be variable due to inconsistent attendance and limited ability to apply skills learned outside of treatment environment. Pt appears to understand skills when learning them and able to connect these to her own mental health; however, when not coached by a support she struggles to independently apply skills learned. Client's mood continues to appear to be directly impacted by external factors, often the relationship with her boyfriend. She is displaying minimal improvements in her ability to regulate and process emotions, which is further impacted by poor sleep and difficulties setting boundaries. Will continue IOP tx to prevent further decompensation, promote healthy change behaviors, and improve mood stability. Time Stopped:: 09:54
--- NOTE | 2019-11-25 10:16 | BH.SGPN.GN ---
Behaviors/Verbalizations/Mental Status: []Client alert and oriented, casually dressed and groomed. Eye contact good. Motor activity appropriate. Speech within normal limits. Affect congruent, mood anxious, agitated, dysthymic. Thoughts linear, logical, no signs of hallucinations or delusions. Client Response/Progress/Benefit: []Client responded well to session, attentive and engaged throughout, at times struggling with being distracted by phone or making off-topic remarks. Easily redirected. Client participated in group discussion to define conflict and identify differences between internal and external conflict. Some progress in ability to share the floor. Client shared that she often struggles with fear of other?s reaction and self-esteem leading to avoidance of conflict. Group reported the benefits of addressing conflict included increased self-confidence, increased trust in relationships, having needs be met, and preventing further conflict from arising. Group identified and discussed consequences of not addressing conflict in healthy ways which included: decreased self-esteem, damaged relationships, increased mental health symptoms, and additional stressors developing as a result. Benefited as client was able to identify current conflict style and how it impacts her mental health and relationships with others. Noted she often is accommodating or avoiding but can become competing if ?emotions are high?. Progress noted as shown by client?s report of improved insight, though she continues to struggle with distorted thought patterns, boundaries, emotion regulation, and consistent skill application. Will continue IOP tx to promote insight and application of healthy skills, reduce mental health sx severity, and further improve daily functioning. Narrative Note: []
--- NOTE | 2019-11-25 11:20 | BH.SGPN.GN ---
Behaviors/Verbalizations/Mental Status: []Client alert and oriented, disheveled in appearance. Eye contact good. Motor activity appropriate. Speech within normal limits. Affect congruent, mood euthymic. Thoughts linear, logical, no signs of hallucinations or delusions. Client Response/Progress/Benefit: []Client active participant AEB client providing input during group discussion and appeared to listen attentively to peers. Contributed to ongoing discussion of the different conflict resolution styles, drawbacks, and appropriate times of use. Client stated she most often avoids conflict whenever possible, sometimes will accommodate. Client reported this type of conflict resolution style negatively impacts her mental health as it causes client to not have her needs met. Client stated she would like to move towards a more collaborative way to resolve conflict. Client stated if she improves the way she manages conflict she believes her self-esteem will improve. Client appeared to benefit from increasing awareness of her personal conflict resolution style and from learning ways to increase healthy conflict resolution. Will continue tx to improve emotional regulation, increase use of healthy coping skills, and prevent decompensation. Narrative Note: []
--- NOTE | 2019-11-30 09:22 | PCM.BH.PN ---
Progress Note Progress Note: History of Present Illness/Interim History: [] The patient is a 23-year-old single female who is seen in follow-up at the [facility] health [facility] program. She has a history of bipolar 1 disorder, PTSD and borderline personality disorder. The patient states that her mood has improved in the past month since I saw her last. She says she is much less depressed now. Her mood feels more stable. Her sleep is better and she is trying to keep more regular sleep wake hours. She says she slept 8 hours overnight. She still has panic attacks daily and worries all the time. The patient says she did self-harm 2 weeks ago by cutting her leg. This was a superficial cut which did not require stitches. Her last alcohol use was on November 19, 2019 when she drank over 5 drinks. She states that she has absolutely no suicidal or homicidal ideation now. She does admit to some passive thoughts that she would not care if she . She is not vomiting except for maybe once a week lately due to anxiety or other. The patient did not increase her meds until 1 week after I gave her the prescription. So she has been on only the starting dose of the medication for 3 weeks now. In addition she missed about 3 days of medication because she was not home. She says that her and her boyfriend go to live with his parents sometimes or spend a weekend there are something. Her attendance has not been consistent and when asked if her boyfriend is supportive the patient says he is not always supportive of her going to IOP. She states that her when her boyfriend is in group home he does not like her to go to [facility] because then she can answer his phone calls. She says her boyfriend has a long criminal record and he has been picked up and brought to group home twice in the past month. She denies any abuse by the boyfriend currently. Patient had a slight fever yesterday so is wearing a mask today and will not be participating in groups. She was afebrile today. Current Psychiatric Medications: [] Zoloft 50 mg p.o. daily (x3 weeks); Lamictal 25 mg p.o. daily (x3 weeks). Patient did not increase Lamictal to 50 mg as instructed after 2 weeks. Mental Status Examination: [] Patient is a 23-year-old obese female who appears normal for stated age except that she is wearing a mask. She is casually dressed and groomed with good hygiene. She has no psychomotor agitation or retardation. Eye contact is fair and she looks away at times when giving answers. Speech is normal rate and rhythm and fluent with no pressure. Mood is euthymic today. Affect is full and normal today. Thought process is goal-directed and organized. Thought content: There is evidence of passive thoughts of but no evidence of hallucinations or delusions. Judgment is limited. Insight: Limited. Impulsivity: Moderate to high. Diagnoses: [] [place] I: [] Borderline personality disorder; bipolar disorder, NOS; generalized anxiety disorder; PTSD [place] II: [] See above [place] III: [] SLE, Sjogren's [place] IV:[]] Work and primary support issues Plan: [] Patient will continue the IOP program at [facility] as the structure, support, education, individual and group therapy will hopefully prevent worsening of the patient's symptoms that might require hospitalization. She felt safe during the interview and if at any time she does not feel safe she will tell us or go to the emergency room. The patient agrees to try to not self-harm any further and to use the skills that she has been taught to avoid self-harm. She agrees to try to not use alcohol or any other substances. The patient agrees to increase her Zoloft 100 mg p.o. daily. She also will increase her Lamictal to 50 mg p.o. daily for 2 weeks and then after that increase to 100 mg of Lamictal p.o. daily. Prescription was sent in for the 100 mg dose of Lamictal.
--- NOTE | 2019-11-30 14:21 | BH.COMM ---
Communication Note - Communication with Client Communication Note: During COVID-19 screening process, Pt reported an elevated temperature on previous date, though does not have one on this date. Additionally indicated experiencing a slight cough and shortness of breath. Pt is unsure if her sx are associaed with smoking behaviors or newly experienced. As a precaution pt has been asked to refrain from attending group therapy until symptoms have subsided. As a result pt was unable to attend individual session and group sessions scheduled for this date. Will follow-up.
--- NOTE | 2019-12-06 15:33 | BH.COMM ---
Communication Note - Communication with Client Communication Note: Pt called to express concerns regarding attending group during COVID-19 pandemic. Expressed willingness to attend on an individual basis. Therapist willl meet with pt individually to further discuss treatment options moving forward.
--- NOTE | 2019-12-07 15:29 | BH.MDN_ITS ---
Multi-Disciplinary Note - Note 30-min Individual Time Started:: 10:09 Date: 12/07/19 Purpose of session/treatment goals addressed:: The purpose of this session was to address client's current symptoms, stressors, and concerns regarding her physical health and wellness in group setting. Another goal was to review components of behavior activation with client and identify small behavior activation client can implement this week. Eye Contact:: Good Motor Activity:: Appropriate Appearance:: Casual - wearing face mask Speech:: Appropriate Mood:: Anxious, Dysthymic Affect:: Congruent Thoughts:: Linear, Logical, No evidence of hallucinations/delusions noted Staff Interventions:: Therapist used active listening and open-ended questions to explore client's current stressors, symptoms, and concerns regarding participating in group treatment environment. Utilized AR techniques to aide pt in identifying healthy change behaviors currently engaging in and ongoing barriers to progress. Therapist provided emotional support and supportive feedback, aiding pt in identifying areas of improvement. Therapist reviewed behavior activation approaches to addressing depression and low motivation and aided pt in identifying a small behavior activation goal for the week. Client Response:: Client receptive to session, engaged throughout. Pt wearing a mask as she expressed concerns regarding her own health given current COVID-19 pandemic and recent report of a confirmed case in the [facility]. Pt indicated feeling comfortable in the individual treatment environment as she is less likely to come in close contact with someone potentially infected by the virus. Therapist discussed current safety measures and precautions being taken in the group environment to ensure safety. Precautions include adhering to strict social distancing recommendations of 6ft between individuals, screening all clients and visitors prior to entry to the building, and disinfecting all surfaces daily and after each use. Pt reports satisfaction with the level of precaution being taken and expressed willingness to continue with program in both the individual and group setting if able to wear a mask. Pt and therapist went on to discuss current progress in skill application and use of emotion regulation skills since last session. Pt initially shared ?nothing has changed, I feel like I?m not doing anything but watching T.V. and playing with apps on my phone?; however, upon further explanation pt was able to identify areas in which she has been working to use skills learned. Identified continuing to struggle with communication between she and her boyfriend, but has successfully been able to set a boundary with him this week. Pt identified not letting her boyfriend borrow her car to go to work despite him asking multiple time and pt struggling with feelings of irritation and guilt. She expressed being tempted to let him use the car so he would stop asking but was able to remind herself of the consequences and potential impact on others as the car is in her father?s name and her boyfriend does not have a valid [employer] driver?s license. Additionally did well to identify that not maintaining the boundary would have negatively impacted her own thoughts and resulted in increased self-deprecation as a result. Pt went on to share that she has been journaling daily and is asking herself ?why is this upsetting me? when experiencing strong emotional responses. Noted wanting to improve on her ability to take a step back prior to responding as she continues to struggle in this area, as well as wanting to do more outside of the house as she feels lack of activity is negatively contributing to her mental health. Open to reviewing behavior activation skills including opposite action and worked with therapist to identify activities she would be willing to do to increase physical activity. Pt identified plans to go for a walk, sit outside on her porch with her father, as well as begin an art therapy journal. Pt receptive of completing these three tasks prior to next session. Risks/Concerns:: Client denies any suicidal ideations, plan, or intent as of this date 12/07/19. Protective factors include family, goals for her future, and boyfriend. Progress Toward Goals/Plan:: Client's progress continues to be variable due to inconsistent attendance and continued inconsistency in application of skills learned outside of treatment environment. Pt unable to attend group previous week due to COVID-19 protocol given pt report of new respiratory symptoms. Pt indicated ongoing difficulties in managing her emotions when feeling overwhelmed or attacked by others. Expressed working on setting boundaries with others to improve in this area and has been successful in begin boundary setting, though would benefit from further focus in this area. She additionally continues to struggle with remaining socially isolated and self-reports spending a large duration of time on her phone or watching t.v. Pt open to beginning regular walks and art therapy. Pt is now working with Gris Michel at [employer] to receive supportive employment resources. Will be given a referral for outpatient psychiatry and counseling through [facility]. Will continue IOP tx to prevent further decompensation, promote healthy change behaviors, and improve mood stability. Time Stopped:: 10:39
--- NOTE | 2019-12-08 12:15 | BH.MDN ---
Multi-Disciplinary Note - Note 45-min Individual Time Started:: 09:07 Date: 12/08/19 Purpose of session/treatment goals addressed:: Purpose of session was to assess pt's current symptoms and stressors. Other topics included: identifying progress, reviewing behavior activation homework and identifying strategies for continued skill application, and establishing aftercare services. Eye Contact:: Good Motor Activity:: Appropriate Appearance:: Casual Speech:: Appropriate Mood:: Euthymic Affect:: Congruent Thoughts:: Linear, Logical, No evidence of hallucinations/delusions noted Staff Interventions:: Therapist used open ended questions to elicit information on pt's perception of current symptoms and stressors, as well as progress. Therapist assisted pt with using strength?s-based approaches to identify accomplishments. Therapist reviewed with pt behavior activation homework and used HI techniques to aid in identifying small daily goals for continued skill application. Therapist worked with pt to call and establish aftercare services for post discharge from [facility] in two weeks. Client Response:: Pt receptive of session, engaged throughout. She reported she is feeling good, more positive this morning. Pt stated yesterday was a really good day as she had been able to successfully complete behavior activation goals as identified in session that morning. Pt stated she had been able to spend time sitting outside on the porch playing with her dogs, as well as visited her parents. Discussed walking around the yard with her mother which she indicated felt like an accomplishment as she had identified increased physical activity as a personal goal of hers. She did well to identify that engaging in activities outside of the house and spending less time on her phone or watching television helped with improving her mood and led to pt feeling proud of herself. Discussed that in the past two days she has overall been feeling more stable and positive. Pt reported additionally continuing to work on establishing and maintaining boundaries with her boyfriend. Provided an example of setting a boundary for when she would need to go to bed in order to get up in time for group. Shared that in the past she would have stayed up all night with him. Reported understanding the importance of consistently working on behavior application and boundaries in order to continue to improve mental health and wellness. Able to identify small opposite action goal for today to reduce time spent on phone or television. Pt identified wanting to lay outside on a blanket and look up positive quotes as well as have a friend over to talk with her while she does household cleaning. Pt reported wanting to schedule aftercare post IOP in session as she is afraid she will forget to do so otherwise. Aftercare appointments were scheduled with [facility] for initial intake and psychiatry on 12/25 and 01.04. Risks/Concerns:: Denies current suicidal ideation, plan or intention to date, 12/08/19. Progress Toward Goals/Plan:: Progress noted with pt report of improve emotion regulation in past week, increased positive thought patterns, improved use of healthy coping skills and application of behavior activation skills, and increased boundary setting with her supports. Pt to continue IOP to continue to improve consistent use of healthy coping skills, challenge distorted thoughts, improve distress tolerance, and prevent decompensation. Time Stopped:: 09:57
== END 2019-12-13 23:59 ==
LOC: BHIOP 09:00
PROVIDERS: PCP Internal Medicine; Referring Provider Psychiatry & Neurology Psychiatry; Visit Provider Psychiatry & Neurology Psychiatry
DX: F60.3 Borderline personality disorder (principal); F31.9 Bipolar disorder, unspecified; F41.1 Generalized anxiety disorder; F43.10 Post-traumatic stress disorder, unspecified; Z79.899 Other long term (current) drug therapy; M32.9 Systemic lupus erythematosus, unspecified; M35.00 Sjogren syndrome, unspecified
CPT/HCPCS: 99213; H0035; H2012; H2020; 90832; 90834

== ENCOUNTER 2019-12-15 09:00 | Outpatient (RCR) | payer OTHER, MEDICAID, SELFPAY ==
[2019-12-14 00:48] VITALS: BP 112/60; PULSE 96; RESP 18; TEMP 36.7
--- NOTE | 2019-12-16 14:12 | BH.MDN ---
Multi-Disciplinary Note - Note 30-min Individual Time Started:: 11:27 Date: 12/15/19 Purpose of session/treatment goals addressed:: This counseling session was provided via telehealth using two-way, real-time interactive telecommunication technology between the patient and the clinician. The interactive telecommunication technology included audio and video. The patient was offered telehealth as an option for care delivery during the COVID-19 pandemic and consented to this option. Patient location: [place]. Provider located at [facility]. Purpose of session was to assess pt's current symptoms and stressors. Other topics included: reviewing and identifying strategies for improving communication with her boyfriend, as well as discussing healthy vs. unhealthy relationships, reviewed healthy coping skills pt can use while ill. Eye Contact:: Good Motor Activity:: Appropriate Appearance:: Disheveled Speech:: Appropriate Mood:: Anxious, Irritable Affect:: Full Thoughts:: Linear, Logical, No evidence of hallucinations/delusions noted Staff Interventions:: Therapist used open ended questions to elicit information regarding pt's perception of current symptoms, stressors, and treatment goal progress. Therapist provided empathic responses and supportive feedback as pt discussed ongoing tensions in current relationship. Therapist reviewed with pt healthy communication skills and used [place] techniques to promote application of healthy communication and boundary setting behaviors. Provided psychoeducation on healthy vs. unhealthy relationships. Therapist worked with pt to identify potential coping skills she may use while ill. Client Response:: Pt receptive of session, did well to adjust to teletherapy and remained engaged throughout. She reported feeling ?alright? but that she has been struggling with physical and relational issues. Discussed that being sick has caused symptoms of her Sjogren?s Syndrome to flare which has impacted self-esteem and resulted in patient feeling more self-conscious as a result. Went on to indicate that increased tension in her relationship has also impacted self-esteem levels. Pt explained that she and her boyfriend has been struggling with increased irritability over that past few days and that she feels he has been making more passive aggressive and critical comments towards pt. She discussed various examples of instances in which she felt belittled or that he was accusing her of things she had not done. Pt and therapist reviewed the importance of not only maintaining communication but also the impacts of ineffective communication in increasing relationship tensions and misunderstandings. Pt noted understanding that effective communication is a avalos component of healthy relationships and share that she had attempted to check-in with her boyfriend and discuss her concerns. Indicated taking a break to think about what she wanted to say prior to doing so but that he had declined wanting to have a conversation. Reviewed with this therapist a variety of strategies for healthy ways of communicating concerns and difficult topics. Pt shared trying to challenge negative thoughts and empathize by recognizing stressors that may be impacting her boyfriend?s emotion regulation. Pt discussed that she struggled to keep from reacting negatively when her attempts at communication were dismissed and ended up arguing with him as a result. Expressed concerns that he may be toxic at times and that the relationship has more recently been negatively impacting her mental health and indicated completing a pro/con list for remaining in the relationship. Shared knowing the relationship currently presents with more cons to her but that she is ?not ready to end things yet?. Indicated wanting to continue to think about her choices before making any concrete decisions. Remainder of session spent reviewing pt use of coping skills while she is currently sick. Pt expressed she has fallen back into primarily relying on the t.v. and phone for entertainment. Worked with therapist to problem-solve alternative self-care activities and pt reports willingness to complete one non-technology related self-care skills each day this weekend. Risks/Concerns:: Denies current suicidal ideation, plan or intention to date, 12/15/19. Progress Toward Goals/Plan:: Progress limited as pt noted regression in self-confidence and emotion regulation skills. Expressed continued issues in communicating and increased boundary setting difficulties regarding her relationship with boyfriend. Pt able to express insight regarding impact of maintaining the current communication and boundaries on her mental health, however continues to struggle with implementing skills identified. Pt additionally reports reduced use of self-care since being sick this week. Pt to continue IOP to continue to improve consistent use of healthy coping skills, challenge distorted thoughts, improve distress tolerance, and prevent decompensation. Time Stopped:: 12:09
--- NOTE | 2019-12-19 09:48 | BH.COMM ---
Communication Note - Communication with Client Communication Note: Client scheduled to begin telehealth IOP groups on 12/16/19, however was unable to be contacted at time of group start. This therapist attempted to contact client on that date without success. A message was left encouraging client to return this therapist's call. Client did not present as a risk to herself or others. An additional follow-up attempt was made and client was able to be reach at her old cell phone number. Scheduled for telehealth groups beginning Thursday of this week, 12/20/19.
--- NOTE | 2019-12-20 11:15 | BH.SGPN.GN ---
This psychotherapy group was provided via telehealth using two-way, real-time interactive telecommunication technology between the patients and the provider. The interactive telecommunication technology included audio and video. The patient was offered telemedicine as an option for care delivery during the COVID-19 pandemic and consented to this option. Patient location: [place] Provider located at [facility] Behaviors/Verbalizations/Mental Status: []Client alert and oriented, casual dress, hygiene tended to. Eye contact good. Motor activity appropriate. Speech within normal limits. Affect congruent, mood anxious. Thoughts linear, logical, no signs of hallucinations or delusions. Behaviors/Verbalizations/Mental Status: [] Client Response/Progress/Benefit: []Client was an engaged participant in group discussion, contributing to discussion at times and listened attentively to others. Client reported believes she is currently in chapter 3? because she keeps engaging in behaviors that she knows will not help her. Completed worksheet and willing to share with the group. Pt stated fear, avoidance, negative thinking, what-if thoughts, cognitive distortions and low self-esteem are currently keeping her stuck from progress. Pt reported she will work on decreasing negative thinking by practicing reframing and engaging in positive self-talk. Benefited from group by identifying thoughts and behaviors that have kept her stuck and identifying goal to promote progress. Will continue in IOP to increase consistent use of healthy coping, challenge distorted thoughts and prevent decompensation. Narrative Note: []
--- NOTE | 2019-12-22 11:48 | BH.COMM ---
Communication Note - Communication with Client Communication Note: Pt scheduled for telehealth group and individual sessions on this date however indicated she was unable to attend due to other outside obligations. Indicates she is able to reschedule for following date to attend groups. Individual session will be rescheduled for next week as this therapist is not available to meet tomorrow.
--- NOTE | 2019-12-23 10:15 | BH.SGPN.GN ---
This psychotherapy group was provided via telehealth using two-way, real-time interactive telecommunication technology between the patients and the provider. The interactive telecommunication technology included audio and video. The patient was offered telemedicine as an option for care delivery during the COVID-19 pandemic and consented to this option. Patient location: [place] Provider located at [facility] Behaviors/Verbalizations/Mental Status: []Client alert and oriented, casual dress, hygiene tended to. Eye contact good. Motor activity appropriate. Speech within normal limits. Affect congruent, mood anxious. Thoughts linear, logical, no signs of hallucinations or delusions. Client Response/Progress/Benefit: []Pt responded well to session AEB pt providing input throughout discussion and listened attentively to peers. Group identified benefits to stress include: increase motivation, builds resilience, increases senses, keeps us safe, and can help us grow. Pt reported anytime she is stressed she doesn't see any positives because feels overwhelmed and only focused on what she is stressed about. Pt stated her self-care decreases significantly when stressed out. Pt reported when feeling too stressed she will stay in bed and shut down. Group identified common responses to being overwhelmed with stress includes: avoiding, shut down, little patience, more snappy, uncontrollable crying, self-harm thoughts, and rage towards others. Pt identified current stressors: financial problems, mental health, relationships, chores, time management, negative self-talk, anxiety, feeling stuck, cognitive distortions, difficulty managing emotions, and not understanding some things. Pt seemed to benefit from increased awareness of current stressors and how stress can negatively impact mental health. Pt to continue IOP to increase consistent use of healthy coping, improve emotional regulation, and prevent decompensation. Narrative Note: []
--- NOTE | 2019-12-23 11:15 | BH.SGPN.GN ---
Addendum entered and electronically signed by Goldie Brasher 12/23/19 14:49: This psychotherapy group was provided via telehealth using two-way, real-time interactive telecommunication technology between the patients and the provider. The interactive telecommunication technology included audio and video. The patient was offered telemedicine as an option for care delivery during the COVID-19 pandemic and consented to the option. Patient location: [place]. Provider located at [facility] Original Note: Behaviors/Verbalizations/Mental Status: []Pt eye contact good, disheveled appearance, motor activity appropriate, speech normal rate and tone, mood anxious, congruent affect, thoughts linear and intact, no evidence of delusions or hallucinations. Client Response/Progress/Benefit: []Client engaged participant in session as evidenced by client listening attentively to others and providing input during session. Client worked with the group to further review ways in which unmanaged stress can manifest. Client reported when she does not manage her stress well she becomes easily agitated, apathetic, and withdrawn. Client actively listening during discussion about the 4 A's of managing stress. Client able to give different strategies for all of the A's and connect it back to her life. Client reported she wants to work more on challenging her negative thoughts about stress. Client seemed to benefit from increased awareness of the impact of stress on mental health and increasing repertoire of stress management strategies. Client to continue IOP tx to increase the consistent use of coping skills and improve mood stability. Client has not been able to make much progress in IOP due to client's variable attendance. Narrative Note: []
--- NOTE | 2019-12-27 08:44 | BH.MDN_ITS ---
Multi-Disciplinary Note - Note 30-min Individual Time Started:: 12:08 Date: 12/27/19 Purpose of session/treatment goals addressed:: The purpose of this session was to address client's current emotions, stressors, and barriers impacting treatment engagement. Additional topics included: emotion regulation and calming skills. Symptoms/Behavior:: This counseling session was provided via telehealth over the phone between the patient and the clinician. The telecommunication included audio. The patient was offered telehealth as an option for care delivery during the COVID-19 pandemic and consented to this option. Patient location: [place]. Provider located at [facility] Eye Contact:: Other - session done over the phone, unable to gather Motor Activity:: Other - session done over the phone, unable to gather Appearance:: Other - session done over the phone, unable to gather Speech:: Appropriate Mood:: Anxious, Irritable Affect:: Other - session done over the phone, unable to gather Thoughts:: Linear, Logical, No evidence of hallucinations/delusions noted Staff Interventions:: Therapist used active listening and open-ended questions to gather information on client's current emotions, stressors, and factors contributing to ongoing difficulties in treatment engagement. Therapist provided supportive feedback, active listening, and empathic responses. Therapist gently challenged client's perspective and distorted thoughts contributing to anxiety and depression and reviewed with client importance of health communication and boundary setting. Therapist worked with client to identify healthy coping skills to use when feeling agitated or emotionally overwhelmed. Reviewed plans for upcoming discharge. Client Response:: Client did not attend scheduled group and individual sessions planned for this date. Therapist reached out via telephone to check-in. Client noted oversleeping but was receptive to holding session now, open to talking with therapist. Client reported she has just been ?really busy with being sick and with stuff going on with Roland?. Shared that she currently is recovering from eye issues and other health related problems. Client went on to discuss that trying to balance her health and helping her significant other ?with a bunch of things? is making it difficult for her to find time for self-care and prevented consistent program attendance. Client did not go into detail regarding what she has been helping her partner with. Expressed that there continues to be tension within the relationship and that she is ?still weighing whether this is healthy?. Receptive of reviewing components of healthy relationships. Client went on to note making an effort to pay more attention to her words when communicating, as well as not communicate when emotionally escalated. Shared variable success in doing so. Open to reviewing emotion regulation skills she can use in times of increased frustration or anxiety.. Client reports feeling she is not doing deep breathing correctly and was open to being sent a tutorial reviewing deep breathing steps. She expressed plans to continue to journal and try to challenge distortions when identifying them. Expressed that she has not recently been using affirmations and would like to improve in consistency on using them as well. Receptive to coping skills and thought challenging. Risks/Concerns:: Client denied any suicidal ideations, plan, or intent to this therapist as of 12/27/19. Future oriented and planning to come to group . Progress Toward Goals/Plan:: Limited progress noted. Client continues to report inconsistent skill application and has missed several scheduled group sessions in the past 2 weeks. Inconsistent engagement is likely contributing to ongoing emotion dysregulation and difficulties in communicating with supports. Reports some improvement in boundary setting, though continues to struggle in this area. Client has shown improvements in identifying coping skills to manage symptoms and would benefit from ongoing distress management work. Will continue IOP tx to prevent decompensation, combat distortions that reinforce symptoms, and improve mood stability. Pt to discharge from IOP on Thursday12/30/19 due to scheduling issues and begin outpatient telehealth treatment at [facility]. Intake was scheduled for this past 12/26/19 however pt did not attend this due to forgetting. Willing to reschedule. Time Stopped:: 12:24
--- NOTE | 2019-12-30 11:32 | BH.MDN ---
Multi-Disciplinary Note - Note 45-min Individual Time Started:: 11:23 Date: 12/30/19 Purpose of session/treatment goals addressed:: Purpose of session was to assess pt's current symptoms and stressors. Another goal was to identify areas progress and strategies for addressing ongoing barriers to progress, as well as reviewed aftercare plan. Additional topics included: boundaries and self-care Symptoms/Behavior:: This counseling session was provided via telehealth over the phone between the patient and the clinician. The telecommunication included audio. The patient was offered telehealth as an option for care delivery during the COVID-19 pandemic and consented to this option. Patient location: [place]. Provider located at [facility] Eye Contact:: Other - Other - session done over the phone, unable to gather Motor Activity:: Other - Other - session done over the phone, unable to gather Appearance:: Other - Other - session done over the phone, unable to gather Speech:: Pressured Mood:: Anxious, Irritable Affect:: Other - Other - session done over the phone, unable to gather Thoughts:: Linear, Logical, Racing Staff Interventions:: Therapist used open-ended questions to elicit information and further explore client's thoughts and perception of personal progress throughout IOP program. Therapist reviewed with pt personal supports, warning signs, and coping skills aimed at continuing to promote gains and prevent setbacks. Therapist discussed importance of continued skill application in preventing relapse and reviewed aftercare plan with client. Used strengths-perspective to highlight and empower client on the goals client accomplished. Therapist discussed the benefits of ongoing maintenance and use of daily coping skills, as well as challenged use of distortions. Handed out and reviewed DSM-scales. Provided support. Client Response:: Pt receptive of session and engaged throughout. She reports feeling she has made progress since beginning IOP tx; however, has recently seen a few setbacks in ability to manage mental health symptoms. Pt indicated beliefs that this has been due to feeling isolated and lonely due to the ongoing COVID-19 quarantine restrictions. Despite restrictions on physically socializing with others, pt indicates she has not made efforts to reach out to her supports via telephone or virtual means on a consistent basis. Additionally, discussed struggling recently to apply self-care skills on a consistent basis. Indicates that she will journal, practice deep breathing, walking the dogs, and coloring when she remembers but often forgets or becomes overwhelmed by other things going on. Pt admits that lack of consistency in in program attendance and skill application in the past two weeks may have resulted in recent increase of mental health symptoms. Noted that ongoing relationship issues may be a contributing factor as well. Therapist challenged pt to identify areas of progress despite recent setbacks. She indicated ?I might not be where I want to be, but it?s not as bad as it could be?. Shared knowing she is better equipped to identify and challenge distortions as well as reports increased insight into behaviors that maintain depression and anxiety. Expressed that continuing to work on communication, challenging self-deprecating thoughts, and improving distress tolerance skills will be important in outpatient treatment. Acknowledged importance of consistent treatment attendance. Receptive of rescheduling the intake appointment at [facility] for outpatient services for 01/09/20 @ 1pm. Risks/Concerns:: No risks or concerns noted. Pt denies any active SI, plan, or intent as of this date 12/30/19. Progress Toward Goals/Plan:: Progress noted. Pt completed DSM cross-cutting scales which showed a 43% reduction in symptoms. Noted reductions in irritability, avoidance, anxiety, and depression. Pt is displaying progress in ability to use emotion regulation skills to better communicate with supports, and practice self-care; however, struggles with consistency in these areas. Increased ability to identify distorted thoughts but struggles at times to remember to challenge these thoughts in the moment. Continues to struggle with self-confidence and anxiety however decreased intensity, frequency, and duration. Given pt progress and difficulties in maintaining regular attendance she is recommended to discharge to individual outpatient counseling at this time. Pt currently has appointments with [facility] for psychiatry and counseling. Next appointment is 01/09/20 for her intake. Time Stopped:: 12:07
--- NOTE | 2019-12-30 11:36 | BH.DS ---
Discharge Summary - Demographics Date of Admission:: 10/24/19 Discharge Date: 12/30/19 Presenting Problems at Admission:: Client is a 23-year-old single female who presents with a history of bipolar 1 disorder, PTSD and borderline personality disorder. Pt was referred to IOP by her previous therapist at [facility] after her boyfriend almost broke up with her. She currently lives in a house with her boyfriend and 3 dogs, a cat and a rabbit. She has a hx of medication noncompliance and has been off of her psych meds since February 2019. 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 At time of admission she describes increasing depression, anxiety, racing thoughts in the past 18 months. At time of admission she reports current stressors include her current boyfriend almost breaking up with her few weeks ago, losing her job, and their roommate moving out recently. For primary support she has her boyfriend and her parents. At time of admission she endorses occasional hopelessness and always has worthlessness. At time of admission she endorses a depressed and anxious mood, negative thinking, anhedonia, low motivation, and irritability. Identified goals for treatment as: improve ability to cope with her emotions, improve self-esteem, improve application of healthy communication and boundary setting, and decrease depression. At admission, her mental health sx are impacting pt occupational, social, and financial areas, as well as impeding her ability to function at baseline. Discharge Diagnoses:: Borderline personality disorder; bipolar disorder, NOS; generalized anxiety disorder; PTSD Reason for Discharge:: During time in program pt has been able to gain some increase in insight regarding how her impulsive behaviors and difficulties communicating when emotionally dysregulated is impacting her mental health. Pt's difficulties in maintaining attendance, limited follow through regarding treatment goals and skills learned, as well as self-reported issues with motivation and healthy decision making have impeded pt ability to make progress in IOP level of tx. Pt agrees that due to ongoing issues with attendance, she is unable to consistently meet IOP requirements and therefore willing to continue counseling on the individual outpatient basis. Pt connected with [facility] in [place] for intake appointment on 01/09/20 to be established with psychiatry and outpatient counseling. - Treatment Progress During Treatment & Response: Pt demonstrated variable progress throughout IOP tx. Pt reports some increase in self-awareness of how not effectively communicating emotions and thoughts negatively impacts her anxiety and depressive symptoms, as well as the impact of unhealthy coping mechanisms on maintaining mental health symptoms. Pt progressed with incorporating some grounding and calming skills during times she was experiencing distress and reports successfully preventing crisis escalation on occasion; however, remained inconsistent in doing so which impacted ability to make substantial gains. Pt's inconsistent application of coping skills and emotion regulation skills has impacted pt ongoing mood instability. Pt reports recent increase in anxiety due to lack of effectively practicing self-care, limited use of distress tolerance skills, and inconsistent communication. Reports her main stressor was ongoing issues with emotion dysregulation, specifically that of communication within her relationship. Due to ongoing issues with consistent application of distress tolerance skills, pt is high risk for regression of mental health symptoms. She struggled significantly with consistent attendance and engagement while in IOP treatment, often canceling or no showing for scheduled group dates. Pt tended to be engaged in group sessions when in attendance, contributing thoughts and ideas to discussion, though at times struggling with remaining focused throughout duration of session. Pt engaged in group activities and listened attentively to peers. Issues Still to be Addressed:: Pt could benefit from outpatient counseling to improve distress tolerance and emotion regulation skills. Pt also could benefit from increasing utilization of healthy coping skills, challenging distorted thoughts, and improved communication skills. Discharge Recommendations/Instructions:: 1. Pt to follow up with psychiatry and individual counseling at [facility]. Next appointment scheduled for 01/09/20. Discharge Handout: Complete Discharge Handout with client on aftercare options and continuity of care.
== END 2019-12-30 16:51 | disposition home or self-care (01) ==
LOC: BHIOP 09:00
PROVIDERS: PCP Internal Medicine; Referring Provider Psychiatry & Neurology Psychiatry; Visit Provider Psychiatry & Neurology Psychiatry
DX: F60.3 Borderline personality disorder (principal); F31.89 Other bipolar disorder; F41.1 Generalized anxiety disorder; F43.10 Post-traumatic stress disorder, unspecified; Z79.899 Other long term (current) drug therapy
CPT/HCPCS: H0035; H2012; 90832; 90834

== ENCOUNTER 2020-01-16 09:00 | Outpatient (RCR) | payer OTHER, MEDICAID, SELFPAY ==
--- NOTE | 2020-01-16 10:15 | BH.SGPN.GN ---
Behaviors/Verbalizations/Mental Status: []Client alert and oriented, disheveled appearance. Eye contact good. Motor activity appropriate. Speech tangential and interrupting others at times. Affect congruent, mood depressed. Thoughts linear, logical, no signs of hallucinations or delusions. Client Response/Progress/Benefit: []Client responded well to session, attentive and engaged throughout session and activity. Client appeared to connect with the topic of fear of failure. Client reported one?s perspective on progress can contribute to feeling like they have failed. Client shared ?progress isn?t linear, we are going to have setbacks, but they don?t have keep us from moving upward.? Group discussed common initial reactions to failure which included; hopelessness, negative self-talk, self-sabotage, and disappointment. Client connected with the concept that mindset is powerful in determining how a person moves forward after failing. Client shared ?instead of viewing a setback as the end of the world, continue to move forward.? Connected with fear of failure and how fear of failure can impact one?s mental health. Engaged and positive during the group activity. Client appeared to benefit from gaining awareness of the impact of fear of failure can have on one?s mental health and wellbeing. Will continue IOP tx to prevent decompensation of mood symptoms, improve emotional regulation skills, and maintain safety. Narrative Note: []
--- NOTE | 2020-01-16 11:20 | BH.SGPN.GN ---
Behaviors/Verbalizations/Mental Status: []Client alert and oriented, casual dress, hygiene tended to. Eye contact good. Motor activity appropriate. Speech within normal limits. Affect could not be assessed due to all patients needing to wear masks to prevent potential spread of coronavirus. mood depressed and anxious. Thoughts linear, logical, no signs of hallucinations or delusions. Client Response/Progress/Benefit: []]Client responded well to session, participating during the group activity and willing to complete the worksheet. Client completed the fear of failure worksheet and reported that fear of failure is keeping client from trusting others and personal growth. Client able to identify barriers that reinforce her fear of failure which included: negative thinking, over-analyzing, avoidance, ruminating, setbacks, lack of self-compassion, and heightened emotions. Client attentive during discussion of the different strategies to help overcome fear of failure. Group identified strategies such as; positive self-talk, thought challenge, opposite action, keeping track of wins, setting smart goals, and accepting that mistakes happen. Client appeared to benefit from learning ways to overcome fear of failure. Will continue IOP tx to improve emotional regulation, challenge distorted thoughts and prevent decompensation. Narrative Note: []
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
--- NOTE | 2020-01-17 09:15 | BH.SGPN.GN ---
This psychotherapy group was provided via telehealth using two-way, real-time interactive telecommunication technology between the patients and the provider. The interactive telecommunication technology included audio and video. The patient was offered telemedicine as an option for care delivery during the COVID-19 pandemic and consented to this option. Patient location: [place] Provider located at [facility] Behaviors/Verbalizations/Mental Status: []Client alert and oriented, casual dress, hygiene tended to. Eye contact good. Motor activity appropriate. Speech within normal limits. Affect congruent, mood euthymic. Thoughts linear, logical, no signs of hallucinations or delusions. Reviewed client?s symptom tracker, pt denies current suicidal thoughts or intention to date. Client Response/Progress/Benefit: []Pt responded well to session AEB pt openly sharing thoughts and feelings as well as listening attentively to peers. Pt identified a mental health positive as being able to manage stress of her friends not responding to her text messages right away. Pt stated instead of thinking they are ignoring me which she stated would make her feel sad she said to herself instead they are probably busy. Pt reported additional mental health positive was setting boundaries with her ex-boyfriend when he asked her to get back together. pt stated she reminded her ex they are toxic for each other and she doesn't want to get back together. Progress noted with pt following through with maintaining boundary. Pt to continue IOP to increase emotional regulation, challenge distorted thoughts, and prevent decompensation. Narrative Note: []
--- NOTE | 2020-01-17 10:23 | BH.SGPN.GN ---
This psychotherapy group was provided via telehealth using two-way, real-time interactive telecommunication technology between the patients and the provider.?The interactive telecommunication technology included audio and video.? ?The patient was offered telemedicine as an option for care delivery during the COVID-19 pandemic and consented to this option. ?Patient location: [place] ?Provider located at [facility] Behaviors/Verbalizations/Mental Status: []Client alert and orient. Appearance casual, disheveled. Speech an appropriate rate and tone. Motor activity WNL. Mood anxious and dysthymic, affect n/a due to pt being telehealth. No evidence of delusion or hallucinations. Client Response/Progress/Benefit: [] Pt receptive to session, participating throughout. Provided input as the group brainstormed the positive and negative aspects of stress on physical and mental health. Pt shared thoughts on the quote indicating: ?I wish I could just ?stop? my thoughts.? And that the quotes means that we are choosing to think another way rather than force the negative thought to go away. Group worked together to define stress and noted that stress is: anxiety, feeling overwhelmed, discomfort, pressure, or a feeling of being under pressure to meet expectations of self or others. Group did well to identify that the benefits of stress include: motivates us, heightened senses/focus, and keeps us safe. Identified personal impacts of too much stress as: irritability, shortness of breath, increased anxiety, irrational thinking, and avoiding supports. Client identified current stressors as: finances and creating a savings, phone anxiety, forgetting things, managing anxiety levels, daily responsibilities, maintaining healthy relationships, distorted thoughts, time managements, feeling disconnected, maintaining consistent work, filing for disability, being alone, and feeling out of control. Client reports belief that the level of their stress jar is ?probably full, but I don?t feel like it?s overflowing?. Indicated that her jar may actually be more full than she realizes. Progress in improved insight and ability to recognize barriers impacting mental health progress. Recommended to continue IOP tx to improve healthy coping skill application, reduce mental health sx, and prevent decompensation. Narrative Note: []
--- NOTE | 2020-01-17 11:21 | BH.SGPN.GN ---
This psychotherapy group was provided via telehealth using two-way, real-time interactive telecommunication technology between the patients and the provider. The interactive telecommunication technology included audio and video. The patient was offered telemedicine as an option for care delivery during the COVID-19 pandemic and consented to this option. Patient location: [place] Provider located at [facility] Behaviors/Verbalizations/Mental Status: []Client alert and oriented, neatly dressed and groomed. Eye contact good. Motor activity appropriate. Speech tangential and rapid. Affect full, mood anxious. Thoughts linear, logical, no signs of hallucinations or delusions. Client Response/Progress/Benefit: []Client engaged participant in session as evidenced by providing input during session and asking questions. Client worked with the group to further review ways in which unmanaged stress can manifest. Client reported when she does not manage her stress well client is anxious, irritable, crying, and confused. Client contributing during discussion about the 4 A's of managing stress. Client able to give different strategies for all the A's and connect it back to her life. Client wants to work on managing her stressor of maintaining boundaries. Client reported she wants to practice the avoid and alter skill to manage her boundaries. Client plans to do this by avoiding taking on other people?s problems and focusing on prioritizing her own mental health. Client shared this will help her because client self-reports difficulty saying no to friends and being codependent. Client seemed to benefit from increased awareness of the impact of stress on mental health and increasing repertoire of stress management strategies. Will continue IOP tx to prevent decompensation, maintain safety, and reduce mood dysregulation. Narrative Note: []
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
--- NOTE | 2020-01-18 10:16 | BH.SGPN.GN ---
Behaviors/Verbalizations/Mental Status: []Eye contact is good. Motor activity is appropriate. Appearance is casual, disheveled. Speech is Appropriate. Mood is euthymic and anxious. Affect is congruent. Thoughts are linear and logical. No evidence of psychosis. Client Response/Progress/Benefit: []Participated throughout group discussion, providing some limited input throughout and listening attentively. Provided examples to group, though at times interrupting others. Engaged during psychoeducation portion reviewing fixed mindset. Pt worked with group to identify how a fixed mindset can impact our mental health which included: decreased motivation, giving up when faced with a setback, not asking for help, low self-esteem, and isolation/avoidance. Pt identified one fixed thought she has is, I ruin everything?. Pt did well to recognize that this fixed thought leads to hopelessness, flooding thoughts, anxiety, and depression. Recognized that this fixed thought has resulted in shutting down, racing thoughts, and exploding on others in the past. Benefited from group by increasing awareness of how one's mindset impacts mental health. Pt to continue IOP level of care to increase utilization of healthy coping skills, challenge distorted thoughts, and prevent decompensation. Narrative Note: []
--- NOTE | 2020-01-18 11:20 | BH.SGPN.GN ---
Behaviors/Verbalizations/Mental Status: []Client alert and oriented, disheveled appearance. Eye contact good. Motor activity appropriate. Speech within normal limits. Affect unable to gather due to client wearing a mask as part of COVID-19 protocol. mood dysthymic. Thoughts linear, logical, no signs of hallucinations or delusions. Client Response/Progress/Benefit: []Client engaged during discussion and listened attentively to peers. Watched the video on growth mindset versus fixed mindset and participated in discussion. Client reported that having a growth mindset is important because you have to believe in yourself...anything can improve. Client did well to apply cognitive restructuring to reframe previously identified fixed thoughts, transforming her fixed thought from previous group to a growth thought of ?I can be alone and still be happy.? Client stated having a growth mindset gives client hope and motivation. Benefitted from discussing benefits of growth mindset and brainstorming strategies for prompting growth-mindset. Will continue IOP tx to improve emotional regulation skills, reduce impulsive behaviors, and improve mood stability. Narrative Note: []
[2020-01-18 12:04] VITALS: BP 118/60; PULSE 100
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
--- NOTE | 2020-01-18 12:23 | BH.DR.ITP ---
Initial Treatment Plan - Patient Information Visit Information: ADMISSION DATE: EXPECTED LOS: 4-6 weeks - Problems/Symptoms Problem #1:: Anxiety Symptom:: Rumination, worry, racing thoughts, panic attacks Problem #2:: Mood instability Symptom:: Sadness, impulsivity, history of SI, biological disruption of sleep
--- NOTE | 2020-01-18 15:52 | BH.COMM ---
Communication Note - Communication with Client Communication Note: Client called in to facility after leaving stating she only had 5 days left of Trileptal medication. This nurse discussed with Dr. Strange. Dr. Strange states okay to call in one month refill of Trileptal. Medication refill called into to [facility] in [place]. Client updated on same.
--- NOTE | 2020-01-19 09:06 | BH.SGPN.GN ---
This psychotherapy group was provided via telehealth using two-way, real-time interactive telecommunication technology between the patients and the provider. The interactive telecommunication technology included audio and video. The patient was offered telemedicine as an option for care delivery during the COVID-19 pandemic and consented to this option. Patient location: [place] Provider located at [facility] Behaviors/Verbalizations/Mental Status: []Client alert and oriented, casual dress, hygiene disheveled. Eye contact good. Motor activity appropriate. Speech within normal limits. Affect n/a as pt joing via telehealth, mood euthymic and slightly irritable. Thoughts linear, logical, no signs of hallucinations or delusions. Reviewed client?s symptom tracker, pt denies current suicidal thoughts or intention to date. Client Response/Progress/Benefit: []Pt responded well to session AEB pt sharing thoughts and feelings openly and listening attentively to peers. Provided supportive feedback throughout. Pt reported mental health positive as being able to get a good amount of sleep last night and is feeling less irritable as a result. Pt identified additional mental health win as allowing herself some time and space this morning as she had some difficulties with her internet. Pt stated it felt positive to be able to utilize her calming skills rather than become overwhelmed and irritated by it. Pt stated current stressor is continuing to work on healthy boundary setting skills. Pt to continue IOP level of care to improve mood management, continue to improve consistent use of healthy coping, and prevent decompensation. Narrative Note: []
--- NOTE | 2020-01-19 10:13 | BH.SGPN.GN ---
Behaviors/Verbalizations/Mental Status: []Client alert and oriented, casual dress, hygiene tended to. Eye contact good. Motor activity appropriate. Speech within normal limits. Affect congruent, mood euthymic. Thoughts linear, logical, no signs of hallucinations or delusions. Client Response/Progress/Benefit: [] Pt active participant throughout group session AEB pt providing input throughout and listening attentively to others. Pt stated she has ?high anxiety? and she feels relief knowing that she has the support of her emergency medication when needed. Pt worked with group members to identify barriers to using supports which included: not allowing support to help, isolation, fear of the unknown, fear in general, distortions, don?t want to admit there is a problem, negative past experiences, mental health stigma, self-sabotage, negative thinking, and over-reliance on others. Pt reported a personal barrier to seeking help from others is the worry she is a burden to others. Seemed to benefit from increased awareness of different supports available and identifying benefits of social support. Pt to continue IOP to increase consistently apply healthy coping, challenge distorted thoughts and prevent decompensation. Narrative Note: []
--- NOTE | 2020-01-19 11:14 | BH.SGPN.GN ---
Behaviors/Verbalizations/Mental Status: []Client alert and oriented, casually dressed and groomed. Eye contact good. Motor activity appropriate- but moving around her room at times. Speech within normal limits. Affect congruent, mood euthymic. Thoughts linear, logical, no signs of hallucinations or delusions. Client Response/Progress/Benefit: []Client an active participant AEB taking notes and sharing during the group discussion. Client participated in group discussion about the different types of support and benefits different types of support can provide. Client identified she would like to increase social supports in the area of self-help by downloading and exploring mental health apps. Client stated she wants to do this by looking into apps that will help her track her progress and daily self-care. Client shared this will help client be more grounded, motivated, and focused on her goals. Client reported her barriers to seeking this support are time management, laziness, and lack of motivation. Appeared to benefit from identifying the type of support client wants to improve and identifying ways to work towards improving this support. Will continue IOP tx to prevent decompensation of mood symptoms, improve emotional regulation, and maintain safety. Narrative Note: []
--- NOTE | 2020-01-23 09:12 | BH.SGPN.GN ---
Behaviors/Verbalizations/Mental Status: []Client alert and oriented, disheveled appearance. Eye contact good. Motor activity appropriate. Speech circumstantial. Affect unable to gather due to wearing a mask for COVID-19 protocol, mood anxious. Thoughts linear, logical, no signs of hallucinations or delusions. Reviewed client?s symptom tracker, no risk of suicidal ideation, plan or intent as of 01/23/20. Client Response/Progress/Benefit: []Client responded well to session, providing supportive statements to peers and engaged throughout. Client reports feeling anxious but good today. Client reflected on her weekend and reported this weekend taught her how many people love me. Client stated the event that led to client learning this and feeling this way was not positive, but she was able to take away a positive from it. Client reported multiple mental health wins including communicating openly about triggers with her mother, cleaning at her house and getting rid of a self-harm trigger, and improved sleep. Client shared she was able to face her biggest trigger and return to her house with a friend who provided support. Client stated being there caused panic, but client was able to work through it with breathing, distractions, and emotional support from her friend. Client's stressor today is that she has a rash on her arms and chest. Client stated concern that this was medication related, but she is unsure because she has had flare ups in the past due to medical conditions. Therapist to follow up with IOP staff about rash. Appeared to benefit from reflecting on progress and application of coping skills. Will continue IOP tx to promote mood stability, maintain safety, and increase emotional regulation. Narrative Note: []
--- NOTE | 2020-01-23 10:20 | BH.SGPN.GN ---
Behaviors/Verbalizations/Mental Status: []Client alert and oriented, casual dress, hygiene fair. Eye contact fair. Motor activity appropriate. Speech within normal limits. Affect congruent, mood anxious. Thoughts linear, logical, no signs of hallucinations or delusions. Client Response/Progress/Benefit: []Pt responded well to session as evidenced by pt providing input throughout session, listening attentively to others and engaging in activity. When processing the quote pt reported she struggles with managing her emotions which results in her yelling and being verbally aggressive towards others. Pt stated she can misinterpret what others say to her which results in her overacting and often sabotaging the relationship. Pt seemed to benefit from increased awareness of the benefits of managing emotions and how unmanaged emotions can impact communication. Pt to continue IOP to improve emotional regulation, increase utilization of healthy coping skills outside treatment environment, and prevent decompensation. Narrative Note: []
--- NOTE | 2020-01-23 11:20 | BH.SGPN.GN ---
Behaviors/Verbalizations/Mental Status: []Client alert and oriented, disheveled. casually dressed and groomed. Eye contact good. Motor activity appropriate. Speech within normal limits. Affect congruent, mood dysthymic. Thoughts linear, logical, no signs of hallucinations or delusions. Client Response/Progress/Benefit: []Pt engaged in session AEB listening attentively to peers and providing input during session. Attentive during psychoeducation on 4 zones of regulation. Pt able to identify how she feels and behaves in each zone. Pt able to recognize that having awareness of emotions in each zone will give client direction on what coping skills to use. Additionally, identified benefits of self check-in?s in emotion regulation. Group identified coping skills they can use to support self in each zone which included: journaling, opposite action, exercising, listening to music, deep breathing, grounding, setting boundaries, and reaching out to supports. Pt shared one skill they would be able to use in each zone which included; for the blue zone: keeping track of wins, green zone: continuing to maintain boundaries and track wins, yellow zone: kristine chi or grounding, and red zone: seek support/crisis. Benefited from increased education on zones of regulation or stages of alertness for emotions and healthy coping skills to use for each zone. Will continue IOP tx to increase emotion regulation, improve confidence, and reduce distortions that reinforce negative thoughts and impulsive behaviors. Narrative Note: []
--- NOTE | 2020-01-24 09:10 | BH.SGPN.GN ---
Behaviors/Verbalizations/Mental Status: [] Eye contact is good. Motor activity is appropriate. Appearance is disheveled. Speech is Appropriate. Mood is irritable. Affect is congruent. Thoughts are linear and logical. No evidence of psychosis. Reviewed daily check in sheet and no reports of suicidal ideations or intent. Client Response/Progress/Benefit: [] Pt was an active participant in group discussion. Emotion for today is agitated. She reported non-compliance related to her medications which she took responsibility. She joined a online support group and has spent more time with in-person support as well. Continuing to maintain boundaries and practice mindfulness. Progress noted per pt report. Some struggles related to sleep and medication non-compliance. Benefited from group support, encouragement, and feedback. Will continue in IOP to maintain safety, prevent decompensation, and maintain boundaries. Narrative Note: [] This psychotherapy group was provided via telehealth using two-way, real-time interactive telecommunication technology between the patients and the provider.?The interactive telecommunication technology included audio and video.?The patient was offered telemedicine as an option for care delivery during the COVID-19 pandemic and consented to this option. ?Patient location: [place] ?Provider located at [facility]
--- NOTE | 2020-01-24 10:16 | BH.SGPN.GN ---
This psychotherapy group was provided via telehealth using two-way, real-time interactive telecommunication technology between the patients and the provider.?The interactive telecommunication technology included audio and video.? ?The patient was offered telemedicine as an option for care delivery during the COVID-19 pandemic and consented to this option. ?Patient location: [place] ?Provider located at [facility] Behaviors/Verbalizations/Mental Status: []Client alert and oriented, casual appearance. Eye contact good. Motor activity appropriate, though difficult to determine as pt telehealth on this date. Speech within normal limits. Affect congruent, mood euthymic. Thoughts linear, logical, no signs of hallucinations or delusions. Client Response/Progress/Benefit: [] Client connected with the group topic of crisis, provided input to discussion, and helped to define crisis as: an emergency, a last resort, feeling like you?ve run out of options, moved past your warning signs, a moment when you really need help, and ?the red zone?. Group identified examples of potential crises to include: worsening mental health, COVID-19, grief, loss of job, loss of physical functioning, loss of housing, end of relationship, or unexpected change. Client agreed with peers that anything can lead to a crisis. Connected with discussion on how coping with external crises by using unhealthy coping skills could result in a personal crisis. Group identified unhealthy coping skills to include; substance use, distracting with television, avoidance, anger outbursts such as road rage, isolation, or self-harming behaviors. Group reported that it is important to have awareness of warning signs which can prevent reaching crisis point. Group identified warning signs for crisis and Client completed the personal warning signs worksheet. Pt identified personal crisis warning signs to included; feeling disconnected, numb, lack of motivation, don?t care how actions impact self/others, and negative or racing thoughts. Benefited by increasing awareness of crisis and personal warning signs. Progress noted in client?s report of practicing reframing and thought challenging more consistently. Will continue IOP tx to maintain safety, promote mood stability, and further decrease intensity of symptoms. Narrative Note: []
--- NOTE | 2020-01-24 11:16 | BH.SGPN.GN ---
This psychotherapy group was provided via telehealth using two-way, real-time interactive telecommunication technology between the patients and the provider.?The interactive telecommunication technology included audio and video.? ?The patient was offered telemedicine as an option for care delivery during the COVID-19 pandemic and consented to this option. ?Patient location: [place] ?Provider located at [facility] Behaviors/Verbalizations/Mental Status: []Client alert and oriented, casually dressed and groomed. Eye contact good. Motor activity appropriate. Speech within normal limits. Affect congruent, mood euthymic. Thoughts linear, logical, no signs of hallucinations or delusions. Client Response/Progress/Benefit: []Client responded well to session as evidenced by client listening attentively to others and providing input throughout session. Client identified her warning signs for crisis and gained further awareness of earliest warning signs. Client appeared to connect that awareness of these warning signs can prevent further crisis and help client utilize healthy coping skills to break the cycle. Client shared has been trying to pay more attention to her early warning signs to prevent client from spiraling out of control. Client created a crisis action plan to help client better manage warning signs for crisis. Client?s plan included: contacting a support to help her get out of the house, having a daily self-care routine, grounding, practicing self-reflection, and reminding herself of the positive outcomes of being active. Client provided numerous helpful coping skills to peers during discussion. Client appeared to benefit from creating a crisis action plan and increasing self-awareness. Client to continue IOP tx to improve mood stability, maintain safety, and reduce impulsiveness. Narrative Note: []
--- NOTE | 2020-01-25 09:06 | BH.SGPN.GN ---
Behaviors/Verbalizations/Mental Status: []Client alert and oriented, casual dress and disoriented, hygiene tended to. Eye contact good. Motor activity appropriate. Speech within normal limits. Affect congruent, mood anxious and euthymic. Thoughts linear, logical, no signs of hallucinations or delusions. Reviewed client?s symptom tracker, pt denies current suicidal thoughts or intention to date. Client Response/Progress/Benefit: [] Pt responded well to session, engaged throughout and willing to openly process with the group. Pt indicated mood for the day as ?accomplished? and attributed this to arriving to group early so she could practice kristine chi. Identified this as a mental health win as she reports starting a regular exercise routine has been a goal of hers. Additional win noted as improving her sleep schedule as well which has resulted in decreased irritability and improved overall mood. Pt went on to express a current stressor as continuing to struggle with maintaining healthy boundaries with her ex. Receptive of and appeared to benefit from support of the group as well as identifying the importance of healthy boundaries on managing her emotions and improving overall mental health. Pt to continue IOP tx program to maintain stability, prevent decompensation, as well as continue to improve ability to apply coping skills learned.? Narrative Note: []
--- NOTE | 2020-01-25 11:15 | BH.SGPN.GN ---
Behaviors/Verbalizations/Mental Status: []Client alert and oriented, casual dress, hygiene tended to. Eye contact good. Motor activity appropriate. Speech within normal limits. Affect congruent, mood euthymic. Thoughts linear, logical, no signs of hallucinations or delusions. Client Response/Progress/Benefit: []Client receptive of session, engaged throughout AEB client participating in discussion and listening to others. Processed activity with group and connected it to overcoming personal pitfalls in life. Client completed a worksheet where she identified personal pitfalls impacting mental health progress. Identified pitfalls as: lack of self-care, poor boundaries, avoidance, cognitive distortions, impulsiveness, not managing emotions, self-harm, co-dependency, and lack of exercise. Attentive and contributing during psychoeducation on strategies to overcome pitfalls. Client stated she will work on the pitfall of managing emotions by engaging in kristine chi every morning. Client to continue IOP level of care to improve mood stability, improve emotional regulation and prevent decompensation. Narrative Note: []
--- NOTE | 2020-01-25 13:35 | BH.MDN_ITS ---
Multi-Disciplinary Note - Note 45-min Individual Time Started:: 10:18 Date: 01/25/20 Purpose of session/treatment goals addressed:: The purpose of this session was to address client's current emotions, stressors, and application of coping skills. Another goal was to discuss codependency and aid client in identifying ways increase personal independence. Eye Contact:: Good Motor Activity:: Appropriate Appearance:: Casual, Other - disheveled Speech:: Appropriate Mood:: Anxious, Dysthymic Affect:: Congruent Thoughts:: Linear, Logical, No evidence of hallucinations/delusions noted Staff Interventions:: Therapist used active listening and open-ended questions to explore client's current symptoms, stressors, and coping skill application. Therapist provided empathic responses and supportive feedback as pt discussed ongoing difficulties in managing emotions related to adjusting to recent break- up. Therapist addressed client?s concerns regarding fears she is codependent and provided psychoeducation on characteristics of codependency. Worked with client to identify goals for improving self-worth via increasing personal independence and ability to independently complete daily responsibilities. Client Response:: Client receptive of session, actively engaged throughout. Reports feeling positive about her ability to continue to make strides forward in improving her mental health and management of emotions. Pt described s truggling with ?a lot of intrusive thoughts yesterday about Roland?. She shared experiencing intrusive thoughts such as ?he doesn?t care about me? and ?I must not be worth while or loveable?. Indicated that initially she became upset, but was able to quickly identify these thoughts as distortions and reframe them. Noted telling herself ?you are loveable? and listed several supportive people in her life whom she knows cares. Shared that this was difficult but that she felt better as a result and proud of herself. Went on to indicate struggling most with missing her ex-boyfriend?s family whom she describes as supportive, as well as thoughts that she and her ex will not be able to ?stay friends?. Client did well to work with therapist on challenging thoughts about being a bad person if she does not remain friends with her ex or continue to be supportive now that they have broken up. Able to recognize that the relationship was toxic though struggled with use of justification for wanting to continue to maintain contact. With further discussion client able to see that not being in contact may actually aid in the healing process as well as prevent her from potentially returning to an unhealthy environment. Client expressed fears that her reliance upon Roland during the relationship as well as current and prior reliance upon her parents means she is ?codependent?. Indicated that her mother has also mentioned this to her which has reinforced these fears. Receptive of psychoeducation on codependence and discussing characteristics she feels she displays. Discussed feeling that her level of reliance on others negatively impacts her self-esteem and prevents her from achieving personal goals in her own life. Client discussed a desire to her own ability to complete tasks on her own in order to improve self-confidence and reduce fears about being alone. Expressed large goal of being able to successfully live on her own one day. Worked with therapist to begin identifying small steps in improving independence, client identified starting to call and schedule her own doctor appointments as one small step she could take this week. Risks/Concerns:: Client denies any suicidal ideations, plan or intent as of 01/25/20. Progress Toward Goals/Plan:: Progress noted as client continues to make consistent strides in maintaining healthy boundaries with her ex as well as reaching out to healthy supports. She reports depression and anxiety about being alone following the end of the relationship. However, is doing well to consistently challenge negative and ruminating thoughts, is engaging in mindfulness relaxation skills, and is reminding herself regularly of the benefits of continued focus on her mental health. Continues to struggle with externalization and emotion dysregulation in the moment. Client to continue IOP tx to maintain safety, reduce depression and anxiety, as well as continue to improve emotion regulation skills. Time Stopped:: 11:02
--- NOTE | 2020-01-25 14:03 | BH.COMM_ITS ---
Communication Note - Communication with Client Communication Note: Client asked to speak to this nurse. Client voices concerns about pain to chest area where client has a lot of scar tissue from history of self-harm. Client has no open areas to chest at this time, but extensive raised scarring. Client states she has been taking 16 extra strength Tylenol per day at times for pain. Strongly advised client not take more than 4 extra-strength Tylenol in a 24 hour period and discussed possible damage to liver if she took more than that. Advised client to talk to PCP about pain from scarring. Client also complains of rash at times to random parts of body, including thighs, arms, back. Client states her skin itches at times, client able to show arms that have self-scratch lugo. Skin appears very dry. Client reports rashes to body parts at times due to her lupus. Client is on Lamictal, but has been on Lamictal in t he past without issue. No current rash to any body parts. Encouraged client to use lotion on dry skin and discuss with PCP if she develops rash anywhere on body, and to keep us up to date if rash does return. Client reports understanding.
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
--- NOTE | 2020-01-26 10:12 | BH.SGPN.GN ---
Behaviors/Verbalizations/Mental Status: []Alert and oriented. Eye contact is fair to good. Motor activity is appropriate. Appearance is disheveled. Speech is Appropriate. Mood is euthymic. Affect unable to gather due to wearing a mask for COVID-19 protocol. Thoughts are linear and logical. No evidence of psychosis. Client Response/Progress/Benefit: []Client was an active participant in group discussion and activity. Contributed to discussion on quote and shared ?growth is never chance. It requires action and follow through.? Client reported in life there are different forces but is ultimately up to the individual if they are willing to put in the effort to grow from the force. Group worked together to come up with common negative forces in life which can hold them back from growth. These included; loss, accidents, stigma, and negative thoughts. Group then worked together to identify common positive forces which help us grow. These included; healthy coping skills, positive support, ambition, and managing emotions. Client identified self-awareness as an example of a positive internal force. Client participated in the group activity and did well to manage her emotions, but struggled to accept when things were out of her control AEB trying to take over for others. Benefited AEB increased insight and awareness on the impact of negative and positive forces on mental wellness. Will continue IOP tx to maintain safety, increase mood stability, and further increase the use of healthy coping skills. Narrative Note: []
--- NOTE | 2020-01-26 11:19 | BH.SGPN.GN ---
Behaviors/Verbalizations/Mental Status: []Eye contact is good. Motor activity is appropriate. Appearance is casual, disheveled. Speech is Appropriate, at times rambling. Mood is euthymic. Affect is congruent. Thoughts are linear and logical. No evidence of psychosis. Client Response/Progress/Benefit: []Pt was an engaged participant in activity as evidenced by pt providing input, challenging self to take direction from others, and attentively listening to others. Group worked together to come up with common negative forces in their lives which can hold them back from growth. Pt identified personal negative forces impacting progress include: anxiety, ruminating about past events, fear of repeating past mistakes, avoidance, and co-dependency. Group then worked together to identify common positive forces which help us grow. Pt personal positive forces included: having a desire to improve, maintaining boundaries, mindfulness, self-care, and thought challenging. Pt was attentive during psychoeducation on the importance of utilizing many aspects of positive forces to help one grow. Identified that she could enhance current positive forces by challenging herself to practice opposite action when motivation levels are low. Benefited from group with increased insight and awareness on the impact of negative and positive forces on mental wellness. Narrative Note: []
--- NOTE | 2020-01-27 13:36 | BH.MDN ---
Multi-Disciplinary Note - Note 30-min Individual Time Started:: 08:22 Date: 01/27/20 Purpose of session/treatment goals addressed:: The purpose of this session was to address client's current emotions, stressors, and urges to engage in unhealthy coping. Another goal was to complete a safety plan for managing her emotions and preventing crisis escalation this weekend. Symptoms/Behavior:: This counseling session was provided via telehealth using two-way, real-time interactive telecommunication technology between the patient and the clinician. The interactive telecommunication technology included audio. The patient was offered telehealth as an option for care delivery during the COVID-19 pandemic and consented to this option. Patient location: [place]. Provider located at [facility] Eye Contact:: Other - N/A as session was done via telephone Motor Activity:: Other - N/A as session was done via telephone Appearance:: Other - N/A as session was done via telephone Mood:: Anxious, Depressed Affect:: Congruent Thoughts:: Linear, Logical, Racing, No evidence of hallucinations/delusions noted Staff Interventions:: Therapist used active listening and open-ended questions to explore client's current symptoms, stressors, and negative thoughts resulting in increased urges to engage in unhealthy coping. Therapist provided empathic responses and supportive feedback as pt discussed difficulties managing current emotions due to recent stressor. Therapist further assessed client?s current risk and commended client for seeking help. Encouraged client to follow the crisis management plan she developed in group earlier this week. Worked with client to develop a healthy coping plan for managing her emotions and preventing high risk behaviors this weekend. Client Response:: Client emailed this therapist at midnight the previous evening indicating an unexpected stressor causing her to feel overwhelmed and was unsure of how to cope with. Indicated in the email that she feared she would turn to high risk behaviors as a result as this is how she has coped in the past. Client requested a session with this therapist to process and create a healthy coping plan for the weekend. Client receptive of meeting this morning via telehealth to do so. Reports finding out late the prior evening that a friend had via suicide and expressed that she has been struggling to know how to grieve and process the news in a healthy way. Open to discussing the impact of an unexpected loss on the grieving process and appeared to respond well to normalizing the mix of emotion she is currently experiencing. Client discussed feelings of sadness, guilt, and fear, and frustration. Expressed that initially upon hearing the news she felt triggered due to her own recent suicide attempt and then began to experience negative thoughts about not reaching out to this friend more often and disappointment that they had not been closer. Client did well to work with therapist on challenging associated distortions and recognizing that she is not to blame or responsible. Client indicated still feeling emotionally vulnerable which in the past has lead to binge drinking alcohol to avoid feeling the severity of her emotions. Reports knowing this will only negatively impact her mental health in the long run and lead to increased feelings of guilt. Willing to review the crisis plan created in group earlier this week which specifically addresses binge drinking urges. Client able to identify healthier alternatives such as going for a walk, positive self-talk, and reaching out to supports. Client and therapist spent remainder of session completing a coping plan for the weekend. Client's plan included; healthy coping skills, positive self-talk statements, things to provide healthy distraction and emotional release, and healthy supports to help client cope more effectively. Client also identify activities she could engage in today to improve mood and practice more self-compassion. Risks/Concerns:: Client denies any suicidal ideations, plan or intent as of 01/27/20. Willing to plan for safety due to recent SI attempt prior to admission and reported urges to engage in high risk behaviors. Does not believe she is harm to self. Future-oriented. Completed a safety plan in session. Reports ability to go to ER should he feel like she cannot keep self safe. Progress Toward Goals/Plan:: Progress noted as client was able to recognize a potential trigger for returning to unhealthy means of coping and took the necessary steps to prevent herself from reacting based on emotion and reverting to high risk behaviors. Client continues to do well to reach out to supports, practice mindfulness skills, and challenge negative thoughts. Client created a safety plan during session for the weekend. Denies any SI today. Client recommended to spend time with her mother this afternoon. Time Stopped:: 08:42
--- NOTE | 2020-01-30 09:10 | BH.SGPN.GN ---
Behaviors/Verbalizations/Mental Status: []Client alert and oriented, casual dress, hygiene fair, disheveled. Eye contact good. Motor activity appropriate. Speech within normal limits. Affect congruent, mood euthymic. Thoughts linear, logical. Reports feeling scattered, no signs of hallucinations or delusions. Reviewed client?s symptom tracker, pt denies current suicidal thoughts or intention to date. Client Response/Progress/Benefit: []Pt responded well to session AEB openly sharing thoughts and listening attentively to others. Pt identified current mood as ?a little scattered but awake?. Reports a stressors for today as forgetting to take her medication this morning due to having a lot scheduled for the morning. Receptive of brainstorming ideas for reminding herself in the morning such as putting her medication somewhere she will see each morning. Discussed that although she missed her med she accomplished a lot this morning which was a mental health ?win? for her. Indicated Making time to practice Bruce Chi which was relaxing. Additional win noted as making efforts to deal with a stressor in a positive way over the weekend by reaching out to a healthy support rather than using past unhealthy coping mechanisms. Identified this as progress. Pt to continue IOP to maintain gains, continue improving healthy skill application and prevent decompensation. Narrative Note: []
--- NOTE | 2020-01-30 10:12 | BH.SGPN.GN ---
Behaviors/Verbalizations/Mental Status: []Client alert and oriented, casual dress, hygiene tended to. Eye contact fair. Motor activity appropriate. Speech within normal limits. Affect congruent, mood anxious. Thoughts linear, logical, no signs of hallucinations or delusions. Client Response/Progress/Benefit: []Client was an active participant in group activity and provided input to discussion. Client connected with the topic of obstacles and solutions. Client shared current reality as feeling more stable compared to the past, but still has challenges with managing her emotions and consistently using healthy coping skills. Client stated she knows she still has areas she can improve upon, but is feeling content with feeling more stable at the moment. Client's realistic, desired reality is to have improved emotion regulation, decrease co-dependency, consistently using healthy coping skills, and able to identify daily positives in her life. Benefited from group as client was able to identify current mental health state and identify goals for her mental health. Will continue IOP tx to improve emotion regulation, increase utilization of healthy coping skills, and prevent decompensation. Narrative Note: []
--- NOTE | 2020-01-30 11:15 | BH.SGPN.GN ---
Behaviors/Verbalizations/Mental Status: []Client alert and oriented, disheveled appearance. Eye contact good. Motor activity appropriate. Speech within normal limits. Affect unable to gather due to wearing a mask as part of COVID-19 protocol, mood euthymic. Thoughts linear, logical, no signs of hallucinations or delusions. Client Response/Progress/Benefit: []Client was an active participant in group discussion and activity. Engaged during activity and provided ideas on how to cope with internal barriers that keep clients stuck from moving towards goals. Barriers identified by the group included: lethargy, not caring, poor boundaries, poor time management, lack of motivation, and co-dependence. Strategies identified for overcoming these barriers included: opposite action, positive self-talk, making a list of why it is important to be present, self-compassion, pros and cons lists, and getting out of the house. Client reported she wants to work on overcoming the barriers of co-dependence and lack of motivation. Client shared she plans to continue to use self-compassion and pros and cons lists to work on codependency. Client also wants to work on lack of motivation by making a list of why it is helpful to be motivated and keep it by her bed. Benefited from group by identifying obstacles and solutions to desired reality. Will continue IOP tx to promote gains, improve mood stability, and further reinforce healthy boundaries. Narrative Note: []
--- NOTE | 2020-01-31 09:15 | BH.SGPN.GN ---
Behaviors/Verbalizations/Mental Status: []Client alert and oriented, casual dress. Eye contact good. Motor activity appropriate. Speech within normal limits. Affect congruent, mood anxious. Thoughts linear, logical, no signs of hallucinations or delusions. Reviewed client?s symptom tracker, pt denies current suicidal thoughts or intention to date. Client Response/Progress/Benefit: []Pt responded well to session as evidenced by pt openly sharing thoughts and feelings. Pt stated she is stressed about having nightmares again that are disrupting her sleep. Pt identified additional stressor as seeing her ex-boyfriend yesterday while at a friends house. Pt stated although she was anxious to see her ex, she was able to communicate and maintain boundary that she doesn't want to get back into a relationship with him. Pt reported although she misses parts of the relationship she knows the relationship was toxic and held her back from progressing. Pt stated mental health positives as maintaining boundary with ex, problem solving on how to take medications more consistently, and using mindfulness tools to decrease stress. Progress noted with pt continuing to maintain boundary set with ex and starting to use her healthy skills more consistently. Pt to continue IOP to increase emotional regulation, increase independence, and prevent decompensation. Narrative Note: []
--- NOTE | 2020-01-31 10:20 | BH.SGPN.GN ---
Behaviors/Verbalizations/Mental status:Client alert and oriented, casually dressed and groomed. Eye contact good. Motor activity appropriate. Speech within normal limits. Affect congruent-tearful while talking about anxiety, mood anxious. Thoughts linear, logical, no signs of hallucinations or delusions. Client Response/Progress/Benefit: []Client was an active participant AEB client providing input during discussion and listened attentively to others. Contributed to discussion of the quote and stated she could connect with the concept of sitting with uncomfortable feelings. Client shared fear tries to stop us from bettering ourselves. Client reported it is important to push oneself to sit with uncomfortable feelings because this is how people grow. Client connected with discussion on the difference between ?normal? anxiety and when anxiety becomes problematic. Client gained awareness of personal physical symptoms of anxiety which included:headaches, nausea, restlessness, and bleeding more because of hormone changes. Client also identified safety behaviors client has used when feeling anxious. These safety behaviors included; sleeping more and avoiding the problem or stressor. Client appeared to benefit from gaining insight to physical signs of anxiety and personal safety behaviors. Will continue IOP to increase healthy coping skills, further improve mood stability, and reduce impulsivity. Narrative Note: []
--- NOTE | 2020-01-31 11:21 | BH.SGPN.GN ---
Behaviors/Verbalizations/Mental Status: []Client alert and oriented, casual in appearance, disheveled. Eye contact good. Motor activity appropriate. Speech within normal limits. Affect congruent, mood dysthymic, anxious. Thoughts linear, logical, no signs of hallucinations or delusions. Client Response/Progress/Benefit: []Pt active participant and providing input to discussion, listened attentively to others and taking notes throughout. Pt at times monopolizing conversation, though was easily redirected. Pt able to connect with the discussion reviewing three categories of skills for managing anxiety which included mind-based, body-based, and self-soothing. Providing examples throughout and contributed ideas. Described to the group what practicing Bruce Chi does to help ease her anxiety. Pt did well to identify a skill she is willing to practice mindfulness in the areas of body-based as: bruce chi, Self-soothing as: grounding, and mind-based: positive 5-senses. Pt seemed to benefit from increased awareness of healthy skills to manage anxiety related symptoms and in identifying skills willing to practice outside treatment environment. Progress noted with increased use of boundary setting and improved emotion regulation. Client to continue IOP level of care to increase healthy coping skills, continue to promote emotion regulation skills, and prevent decompensation. Narrative Note: []
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
--- NOTE | 2020-02-01 09:05 | BH.SGPN.GN ---
This psychotherapy group was provided via telehealth using two-way, real-time interactive telecommunication technology between the patients and the provider. The interactive telecommunication technology included audio and video. The patient was offered telemedicine as an option for care delivery during the COVID-19 pandemic and consented to this option. Patient location: [place] Provider located at [facility] Behaviors/Verbalizations/Mental Status: []Client alert and oriented, casually dressed, fair grooming. Eye contact good. Motor activity appropriate. Speech within normal limits. Affect congruent, mood anxious. Thoughts linear, logical, no signs of hallucinations or delusions. Reviewed client?s symptom tracker, pt denies current suicidal thoughts or intention to date. Client Response/Progress/Benefit: []Patient responded well to session as evidenced by her was intently to others in sharing thoughts and feelings with group. Patient reported yesterday after IOP she went to her house because she wanted to face her fears. Patient shared her house has been a source of anxiety so has not been going there very often because living with her parents now. Patient stated she had some anxiety while at the house but did not have a panic attack which she notes is progress. Patient reported she utilized a grounding tool and breathing while at the house to try and decrease her anxiety however would like to learn additional calming skills because the grounding tool was not as helpful as she would have liked. Patient stated today she is having low motivation and no desire to do anything. With assistance patient able to identify importance of utilizing opposite action skill to help her overcome her low motivation. Progress noted with patient addressing anxiety provoking situation and attempting to utilize her skills. Patient to continue IOP level of care to improve emotional regulation, consistently apply healthy coping skills, and prevent decompensation. Narrative Note: []
--- NOTE | 2020-02-01 10:15 | BH.SGPN.GN ---
This psychotherapy group was provided via telehealth using two-way, real-time interactive telecommunication technology between the patients and the provider. The interactive telecommunication technology included audio and video. The patient was offered telemedicine as an option for care delivery during the COVID-19 pandemic and consented to this option. Patient location: [place] Provider located at [facility] Behaviors/Verbalizations/Mental Status: [] Eye contact is good, pt telehealth so assessment limited. Motor activity is appropriate. Appearance is casual, disheveled. Speech is Appropriate, at times rambling. Mood is euthymic. Affect is congruent. Thoughts are linear and logical. No evidence of psychosis. Client Response/Progress/Benefit: []Pt was an active participant in group discussion and activity, providing input throughout. Pt worked with peers on defining what goals are and indicated that ?goals are something you want to accomplish?. Brainstormed with the group the benefits of goal-setting which included: increased motivation, feeling accomplished, gives us a sense of direction, and increase positive thinking. Pt noted connecting with personal goal setting benefit of: reducing feelings of overwhelm. Able to provide feedback during psychoeducation on SMART goals. Pt appeared to benefit from learning the mental health benefits of setting goals that are specific, measurable, attainable, relevant, and time-specific. Will continue in IOP to decrease distorted thinking, improve functioning, and prevent decompensation. Narrative Note: []
--- NOTE | 2020-02-01 11:14 | BH.SGPN.GN ---
Behaviors/Verbalizations/Mental Status: []Eye contact is good. Motor activity is appropriate. Appearance is casual. Speech is Appropriate. Mood is euthymic. Affect is congruent. Thoughts are linear and logical. No evidence of psychosis Client Response/Progress/Benefit: []Client was engaged and contributing to discussion, did well to develop a personal SMART goal. Client chose the goal; work on doing more things on her own before asking for help from others. Client stated she plans to keep track of things she does on her own each day. When asked why this goal was important and beneficial to client's mental health she stated ?I?m trying not to be so codependent.? Identified the following barriers to completing this goal which included; not trying, failing the first try and giving up, low motivation, and anxiety. Identified solutions to barriers which included; opposite action, practicing self-compassion, positive self-talk, and communicating with supports if she does need help. Benefited from this group by developing a short-term SMART goal related to mental health and from problem-solving barriers. Will continue IOP tx to promote gains made in reducing SI, further decrease impulsive behaviors, and improve mood stability. Narrative Note: []
--- NOTE | 2020-02-01 12:09 | PCM.BH.PN ---
Progress Note Progress Note: History of Present Illness/Interim History: [] Patient is a 24-year-old single female who is seen in follow-up at the [facility] IOP program. The patient has a history of borderline personality disorder, bipolar disorder, generalized anxiety disorder and PTSD and was last seen by me 2 weeks ago. The patient is seen by telehealth. She states that she feels much better than she did 2 weeks ago. She has switched to taking the Trileptal twice a day instead of 3 times a day and this has greatly improved her compliance. In addition she is tolerating the Lamictal well and has only 4 days left on the 50 mg a day. She said her is anxiety is better but there is some anxiety still present. However she was having panic attacks up to 4 times a day and is now having less panic attacks only about twice a day or less. She is sleeping about 8 to 10 hours a night and is much more regular and improved in length. She feels that she is learning skills in the IOP program that she can really used to help deal with her issues. She is still living with her parents and she feels very positive about the break-up with her boyfriend. She feels that this was a good thing to have happened. She is looking forward to feeling better as she states that she feels better each day. She denies any suicidal ideation at all. She denies any thoughts of self-harm. She denies homicidal ideation, hallucinations or delusions. She denies any adarsh symptoms. Patient has not used any alcohol or marijuana since I saw her 2 weeks ago. Current Psychiatric Medications: [] Trileptal 600 mg p.o. nightly and 300 mg p.o. every morning; Lamictal 50 mg p.o. nightly (x10 days now). Mental Status Examination: [] Patient is a 24-year-old female who appears normal for stated age and is seen on telehealth. She is obese and is casually dressed and groomed with good hygiene. She is cooperative and pleasant during the interview. She has no psychomotor agitation or retardation. Eye contact is good and speech is regular rate and rhythm and fluent with no pressure. Mood is mildly anxious but euthymic. Affect is full and normal. Thought process is goal-directed and organized. Thought content: No evidence of suicidal or homicidal ideation. No thoughts of self-harm. No evidence of hallucinations or delusions. Judgment is limited. Insight: Some present but limited. Impulsivity: Moderate to high Diagnoses: [] Reserve I: []. Borderline personality disorder; bipolar disorder, NOS; generalized anxiety disorder; PTSD; history of alcohol and marijuana use disorders Reserve II: [] See above Reserve III: [] Obesity, SLE, Sjogren's, fibromyalgia Reserve IV:[]] Primary support and work/financial issues Plan: [] The patient will continue the IOP program at [facility] as the structure, support, education, individual and group therapy will hopefully prevent worsening of the patient's symptoms which might require readmission to the hospital. She felt safe during the interview and if at any time she does not feel safe she will let us know or go to the emergency room. The risk, options, and possible complications of the medication were discussed with the patient and she understands and accepts these. She agrees to increase the Lamictal to 100 mg p.o. nightly after finishing the current prescription. A prescription was sent into [facility] pharmacy for the patient at her request. She will continue the rest of her meds at the current doses. She will continue to follow-up with her outpatient providers. She will continue to abstain from all alcohol and all marijuana use.
--- NOTE | 2020-02-02 09:07 | BH.SGPN.GN ---
This psychotherapy group was provided via telehealth using two-way, real-time interactive telecommunication technology between the patients and the provider. The interactive telecommunication technology included audio and video.? ?The patient was offered telemedicine as an option for care delivery during the COVID-19 pandemic and consented to this option. ?Patient location: [place] ?Provider located at [facility] Behaviors/Verbalizations/Mental Status: []Client alert and oriented, casually dressed, disheveled. Eye contact good. Motor activity appropriate. Speech within normal limits. Affect congruent, mood dysthymic. Thoughts linear, logical, no signs of hallucinations or delusions. Reviewed client?s symptom tracker, no risk for suicidal ideation, plan, or intent as of 02/02/20. Client Response/Progress/Benefit: []Client responded well to session, attentive and providing supportive statements to peers. Client reports feeling tired but positive today. Client reflected on several mental health wins today which included checking-in with herself when feeling ?emotionally distant? and asking herself ?What do I need. Went on to indicate communicating her needs with her supports. Additional win noted as taking a step to challenge herself to follow through with personal goal of being more independent and trying to problem solve on her own before asking for help. Shared initially struggling to do so but utilized positive self-talk and was able to accomplish her goal. Identified a current stressor as pain on her chest and did well to problem solve that she could go to the store and ask for recommendations from the pharmacy rather than ask her mom to do it for her. Appeared to benefit from reflecting on her positives and application of coping skills. Will continue IOP tx to promote gains and improve mood stability. Narrative Note: []
--- NOTE | 2020-02-02 10:20 | BH.SGPN.GN ---
This psychotherapy group was provided via telehealth using two-way, real-time interactive telecommunication technology between the patients and the provider. The interactive telecommunication technology included audio and video. The patient was offered telemedicine as an option for care delivery during the COVID-19 pandemic and consented to this option. Patient location: [place] Provider located at [facility] Behaviors/Verbalizations/Mental Status: []Client alert and oriented, disheveled appearance. Eye contact good. Motor activity appropriate. Speech within normal limits. Affect constricted, mood irritable. Thoughts linear, logical, no signs of hallucinations or delusions Client Response/Progress/Benefit: []Client active participant as shown by contribution to discussion and insight provided. Client shared connecting to group topic of self-care and ?loved? the quote because it reminds her to make herself a priority. Client helped the group discuss benefits of self-care which included; less stress, better decision making, increased productivity, and improved relationships. Client shared without self-care boundaries can suffer and mood can become more erratic. Client participated in the discussion of the common myths about self-care. Client participated in the discussion on debunking of these myths. Client seemed to benefit from increased awareness of the importance of self-care and challenging common myths that prevent practicing self-care. Client progress noted in client?s increased insight into self-care and her self-report of actively utilizing healthy coping skills. Will continue IOP tx to promote gains, further decrease impulsive behaviors, and reduce codependency. Narrative Note: []
--- NOTE | 2020-02-02 11:19 | BH.SGPN.GN ---
This psychotherapy group was provided via telehealth using two-way, real-time interactive telecommunication technology between the patients and the provider. The interactive telecommunication technology included audio and video. The patient was offered telemedicine as an option for care delivery during the COVID-19 pandemic and consented to this option. Patient location: [place] Provider located at [facility] Behaviors/Verbalizations/Mental Status: []Client alert and oriented, disheveled appearance. Eye contact good. Motor activity appropriate. Speech within normal limits. Affect constricted, mood irritable. Thoughts linear, logical, no signs of hallucinations or delusions Client Response/Progress/Benefit: []Client receptive of session, engaged and positively contributing to discussion. Participated in further debunking myths about self-care. Client stated she has been working on setting boundaries and being more independent for her self-care. Engaged in small group discussion and attentive while others shared. Willing to complete worksheet activity and helped the group identify various types of self-care activities. Client completed self-assessment activity on the different areas of self-care and was able to identify current practices she uses and identify areas she can improve upon. Client reported she can improve her emotional self-care. Client stated she wants to keep track of her wins to help combat distortions. Client appeared to benefit from increasing awareness of how she can improve self-care balance. Progress noted as client has been consistent with her attendance and reports actively applying healthy coping skills. Will continue IOP tx to promote mood stability, further improve boundary setting, and increase emotional regulation. Narrative Note: []
--- NOTE | 2020-02-07 09:03 | BH.SGPN.GN ---
Behaviors/Verbalizations/Mental Status: []Client alert and oriented, disheveled appearance. Eye contact fair. Motor activity appropriate. Speech within normal limits. Affect congruent-tearful, mood anxious. Thoughts linear, logical, no signs of hallucinations or delusions. Reviewed client?s symptom tracker, no risk for suicidal ideation, plan, or intent as of 02/07/20. Client Response/Progress/Benefit: [] Client responded well to session, attentive and engaged. Client reports feeling agitated today. Client shared she feels agitated because she is living with her parents again and there's a lot of loudness. Client stated being in a loud environment reminds client of fighting with her ex-boyfriend. Client stated she has been using a lot of coping skills recently which is positive. Client reported using opposite action which has helped client avoid yelling and helped client with cleaning. Client also has been working on being more independent and shared she accomplished a task by herself this week instead of asking for help. Appeared to benefit from reflecting on application of coping skills. Will continue IOP tx to further improve mood stability, reduce impulsivity, and increase healthy coping skills. Narrative Note: []
--- NOTE | 2020-02-07 10:15 | BH.SGPN.GN ---
This psychotherapy group was provided via telehealth using two-way, real-time interactive telecommunication technology between the patients and the provider. The interactive telecommunication technology included audio and video. The patient was offered telemedicine as an option for care delivery during the COVID-19 pandemic and consented to this option. Patient location: [place] Provider located at [facility] Behaviors/Verbalizations/Mental Status: []Client alert and oriented, casually dressed and groomed. Eye contact good. Motor activity appropriate, though limited info due to pt being telehealth. Speech within normal limits. Affect appearing congruent, mood euthymic. Thoughts linear, logical, no signs of hallucinations or delusions. Client Response/Progress/Benefit: []Client responded well to session, attentive and providing input to discussion. At times dominating conversation but pt had some awareness and was able to share the floor when recognizing this. Client indicated connecting with topic of boundaries and agreed with peers that healthy boundaries are essential for maintaining mental health progress. Expressed that the last time she had been in the program poor boundaries resulted in pt regressing and experiencing an influx of mh sx. Group participated in the discussion on benefits of setting boundaries which included; feeling happier, improved self-confidence, avoidance of toxic people, and reduced stress. Client engaged during discussion of the different types of boundaries and able to identify and connect with examples of each. Client also helped the group recognize the consequences of not having healthy boundaries and noted that for her this has led to compromising on personal values, not getting emotional needs met, and resulted in pt ?losing myself?. Client seemed to benefit from increased awareness of how poor boundaries can negatively impact mental health. Progress noted in client?s increased application of skills and self-report of improved mental health symptoms. Will continue IOP tx to promote mood stability, further decrease depression and anxiety, and improve daily functioning. Narrative Note: []
--- NOTE | 2020-02-07 11:20 | BH.SGPN.GN ---
This psychotherapy group was provided via telehealth using two-way, real-time interactive telecommunication technology between the patients and the provider. The interactive telecommunication technology included audio and video. The patient was offered telemedicine as an option for care delivery during the COVID-19 pandemic and consented to this option. Patient location: [place] Provider located at [facility] Behaviors/Verbalizations/Mental Status: []Client alert and oriented, casually dressed. Eye contact fair. Motor activity appropriate. Speech within normal limits. Affect congruent, mood euthymic and positive. Thoughts linear, logical, no signs of hallucinations or delusions. Client Response/Progress/Benefit: []Client responded well to session, actively contributing during discussion and making connections during the activity. Client engaged in the boundary self-assessment activity and participated in discussion to process the activity. Client attentive during psychoeducation on the boundary setting styles and shared belief she uses the porous and rigid boundary setting styles. Client shared she tends to be more porous with close friends, family, and significant other. Client reported she can change to rigid boundaries by pushing everyone away if she gets disappointed by another person. Client seemed to benefit from increased awareness of the different boundary styles and awareness of how current way of setting boundaries can impact her. Will continue IOP tx to promote use of healthy coping skills, further improve emotional regulation, and prevent decompensation. Narrative Note: []
--- NOTE | 2020-02-07 12:54 | BH.MDN_ITS ---
Multi-Disciplinary Note - Note 60-min Individual Time Started:: 12:11 Date: 02/07/20 Purpose of session/treatment goals addressed:: Purpose of session was to assess pt's current symptoms, stressors, and treatment goal progress. Other topics included: reviewing homework from last session, provided additional psychoeducation on the various types of boundaries and aided pt in analyzing areas in which she is doing well vs. where she is struggling. Eye Contact:: Good Motor Activity:: Appropriate Appearance:: Disheveled, Casual Speech:: Appropriate Mood:: Euthymic Affect:: Congruent Thoughts:: Linear, Logical, No evidence of hallucinations/delusions noted Staff Interventions:: Therapist used open ended questions to elicit pt's current symptoms, stressors, and treatment goal progress. Therapist reviewed homework from last individual session. Discussed skills used in completing homework. Therapist worked with pt to review different areas of boundary setting and identify areas for improvement. Discussed strategies for continued progress in this area. Client Response:: Pt responded well to session, actively engaged throughout. Reported that she is feeling positive today and found herself connecting with the group topic of healthy boundaries. Expressed that she had not been aware of the different areas in which it is important to set boundaries such as physical, emotional, sexual, financial, material, and intellectual. Pt indicated a desire to learn more about each area and worked with therapist on identifying aspects of each area in which she is succeeding as well as areas she could continue work on. Pt expressed that she struggles most in the areas of managing healthy time and emotional boundaries. Provided insight that she often experiences difficulties with balance, especially in regard to her emotions and tends to jump to emotional extremes. Noted that this has led to her emotions feeling invalidated by others as well as pt accidentally invalidating other?s due to oversharing. Discussed with therapist strategies for continuing to work on emotional boundaries which included practicing taking time to take a step back and take a break before responding, asking herself ?why do I feel this way?, and using thought challenging to ask if this is something ?I should be sharing right now?. Pt went on to note that overall she feels she is continuing to make progress and has been doing well to complete her homework each week. Reviewed with therapist two moments in which she was able to independently complete daily tasks which included figuring out how to use her swifer on her own and going to the store by herself. Pt and therapist discussed tracking each time she independently accomplishes something in order to reflect on overall progress when struggling with motivation or feeling stuck. Risks/Concerns:: Denies suicidal ideation, plan or intention to date, 02/07/20. Progress Toward Goals/Plan:: Progress noted pt reports successfully accomplishi ng independence goals and continues to do well to reach out to healthy supports as well as practice mindfulness skills daily. Noted struggling with boundaries which has been a consistent area of difficulty, but is doing better to make small strides forward and identify when her behaviors may be unhealthy. Pt continues to struggle at times with emotion regulation as she often goes from one extreme to another and would benefit from continued tx to maintain stability, further improve healthy communication and boundary setting, as well as prevent decompensation. Time Stopped:: 13:08
--- NOTE | 2020-02-08 09:07 | BH.SGPN.GN ---
Behaviors/Verbalizations/Mental Status: []Client alert and oriented, casually dressed. Eye contact good. Motor activity appropriate, though difficult to determine as pt telehealth. Speech within normal limits. Affect congruent, though pt telehealth, mood euthymic, anxious. Thoughts linear, logical, no signs of hallucinations or delusions. Reviewed client?s symptom tracker, no risk for suicidal ideation, plan, or intent as of 02/08/20. Client Response/Progress/Benefit: [] Client responded well to session, attentive and willing to share with the group. Client reports feeling tired today as she was at the emergency room with her ex last night and did not get much sleep. Expressed this is ?kind of a stressor? as pt had allowed her ex to mow her lawn to make some money, however he ended up running over his foot and injuring himself. Shared that this was a stressor for her as she felt obligated to stay with him at the E.R. so ensure his safety and received little sleep as a result. Went on to indicate that current wins included maintaining healthy boundaries with her ex despite him attempting to guilt pt into staying the night to care for his injured foot. Pt shared an additional win as making plans to go for a mindfulness walk in nature today rather than isolate. Receptive of support and appeared to benefit from identifying areas of progress as well as the structured group setting. Will continue IOP tx to maintain mood stability, continue to work on boundary setting, emotion regulation, and improve mental health sx management. Narrative Note: []
--- NOTE | 2020-02-08 10:15 | BH.SGPN.GN ---
This psychotherapy group was provided via telehealth using two-way, real-time interactive telecommunication technology between the patients and the provider. The interactive telecommunication technology included audio and video. The patient was offered telemedicine as an option for care delivery during the COVID-19 pandemic and consented to this option. Patient location: [place] Provider located at [facility] Behaviors/Verbalizations/Mental Status: []Client alert and oriented, casually dressed. Eye contact fair. Motor activity appropriate. Speech within normal limits. Affect constricted, mood anxious. Thoughts linear, logical, no signs of hallucinations or delusions. Client Response/Progress/Benefit: []Pt engaged in session AEB pt listening attentively to others and providing input throughout session. Pt stated anger has helped her set boundaries, especially when people in her life have disrespected her. Pt shared emotions that are underlying anger include: loneliness, tired, hungry, scared, physical pain, protection of self, jealousy, feeling helpless or incapable, stressed, and disappointment. Pt identified the following as ways she expresses anger: yelling, shut down, panic attacks, passive aggressive behavior, aggressive behavior, recklessness, and crying. Pt seemed to benefit from increased awareness of how unmanaged anger can impact self and others. Pt to continue IOP to maintain gains, continue to utilize healthy coping skills and prevent decompensation. Narrative Note: []
--- NOTE | 2020-02-08 11:15 | BH.SGPN.GN ---
This psychotherapy group was provided via telehealth using two-way, real-time interactive telecommunication technology between the patients and the provider. The interactive telecommunication technology included audio and video. The patient was offered telemedicine as an option for care delivery during the COVID-19 pandemic and consented to this option. Patient location: [place] Provider located at [facility] Behaviors/Verbalizations/Mental Status: []Client alert and oriented, disheveled appearance. Eye contact good. Motor activity appropriate. Speech within normal limits. Affect congruent, mood agitated. Thoughts linear, logical, no signs of hallucinations or delusions. Client Response/Progress/Benefit: []Client was an engaged participant throughout group AEB client providing input throughout discussion. Client helped the group identify common warning signs of anger and identified personal warning signs of anger which included; gritting her teeth, increased heart rate, tension, and scattered thinking. Group brainstormed with group healthy coping skills to help manage anger which included: deep breathing, opposite action, exercise, taking breaks, and redirecting anger. Client selected kristine chi and exercising twice a week as the skill client wants to incorporate this week to manage anger. Client appeared to benefit from identifying different techniques to manage anger as well as gaining awareness of warning signs. Recommended continued IOP tx to promote use of healthy coping skills, further increase mood stability, and reduce impulsivity. Narrative Note: []
--- NOTE | 2020-02-09 10:17 | BH.SGPN.GN ---
Behaviors/Verbalizations/Mental Status: []Client alert and oriented, casually dressed, disheveled. Eye contact good. Motor activity restless. Speech within normal limits. Affect congruent, mood agitated and anxious. Thoughts linear, logical, no signs of hallucinations or delusions. Client Response/Progress/Benefit: [] Pt was an engaged participant throughout group session AEB contributing to discussion, at times interrupting others but did well to be redirected. Connected with quote and topic of healthy coping providing an example of how unhealthy coping has negatively impacted her in the past. Group discussed common unhealthy coping skills which included; avoidance, drinking, sleeping, eating too much, lashing out on others, and prioritizing other things over actual responsibilities. Group reported people turn to unhealthy skills because it?s often easier, as well as habit, fear, and wanting a quick fix. Client worked with group so identify impact of unhealthy coping on mental health and noted that learning healthy coping skills takes motivation to change, encouragement, and practice. Participated in the coping activity and did well to utilize healthy coping skills when faced with potential stressors and tempted to give up. Client seemed to benefit from improved awareness of importance of increasing healthy coping skills and consequences of utilizing unhealthy coping skills. Client to continue IOP tx to promote gains, further improve mood stability and healthy boundaries, and improve daily functioning. Narrative Note: []
--- NOTE | 2020-02-09 11:19 | BH.SGPN.GN ---
Behaviors/Verbalizations/Mental Status: []Client alert and oriented, casually dressed and grooming fair, reports not bathing. Eye contact good. Motor activity appropriate. Speech within normal limits. Affect congruent, mood anxious, agitated. Thoughts linear, logical, no signs of hallucinations or delusions. Client Response/Progress/Benefit: [] Client responded well to session, connected with activity and participating in discussion. Agreed with peers that it is important to have a balance of healthy coping skills to best prevent crisis. Client contributed as the group discussed the different categories of coping skills which included distraction, emotional release, grounding, self-love, and thought challenging. Provided examples of grounding exercises, specifically Bruce Chi, to the group. She participated in creating a coping skills ?menu? for the five categories of coping skills. Client's coping skill menu included; progressive muscle relaxation for emotional release, maintaining healthy boundaries, self-compassion, spending time completing a journal scrapbook, and reframing skills. Client appeared to benefit from increasing repertoire of healthy coping skills. Client progress shown by report of reduced self-sabotaging behaviors, specifically improved boundaries. Will continue IOP tx to further decrease anxiety and improve mood stability. Narrative Note: []
== END 2020-02-12 23:59 ==
LOC: BHIOP 09:00
PROVIDERS: PCP Internal Medicine; Referring Provider Psychiatry & Neurology Psychiatry; Visit Provider Psychiatry & Neurology Psychiatry
DX: F60.3 Borderline personality disorder (principal); F41.1 Generalized anxiety disorder; F43.10 Post-traumatic stress disorder, unspecified; Z72.89 Other problems related to lifestyle; F12.90 Cannabis use, unspecified, uncomplicated; M35.00 Sjogren syndrome, unspecified; M79.7 Fibromyalgia; E66.9 Obesity, unspecified; M32.9 Systemic lupus erythematosus, unspecified; Z79.899 Other long term (current) drug therapy; F17.210 Nicotine dependence, cigarettes, uncomplicated; Z91.5 Personal history of self-harm
CPT/HCPCS: H0035; H2020; 90832; 90834; 90837; 90853

== ENCOUNTER 2020-02-13 09:00 | Outpatient (RCR) | payer OTHER, MEDICAID, SELFPAY ==
[2020-02-13 00:31] VITALS: BP 118/60; PULSE 100
--- NOTE | 2020-02-13 09:05 | BH.SGPN.GN ---
Behaviors/Verbalizations/Mental Status: []Client alert and oriented, disheveled appearance. Eye contact good. Motor activity appropriate. Speech within normal limits. Affect unable to gather due to wearing a mask for COVID-19 protocol, mood euthymic. Thoughts linear, logical, no signs of hallucinations or delusions. Reviewed client?s symptom tracker, no risk for suicidal ideation, plan, or intent as of 02/13/20. Client Response/Progress/Benefit: []Client responded well to session, attentive and providing supportive statements to peers. Client reports feeling gross today because physically she does not feel well, but client identified multiple mental health wins. Client's wins included: going on a hike with a friend, practicing mindfulness, and participating in old hobbies she used to enjoy. Client stated her friend got her scrap booking supplies and client is excited to use this supplies for a reflection journal. Client's stressor today is that she does not feel like she has any privacy at her parent's house, but she is trying her best to set boundaries and make time for self-care. Client appeared to benefit from reflecting on her positives. Will continue IOP tx to promote the use of healthy coping skills, reduce impulsivity, and improve daily functioning. Narrative Note: []
--- NOTE | 2020-02-13 10:17 | BH.SGPN.GN ---
Behaviors/Verbalizations/Mental Status: [] Client alert and orient. Appearance casual, grooming disheveled. Speech an appropriate rate and tone. Motor activity WNL. Mood euthymic, affect congruent to mood. No evidence of delusion or hallucinations.? Client Response/Progress/Benefit: [] Pt receptive of session, engaged throughout. Worked with the group to define healthy communication and it?s various attributes. Discussed benefits of healthy communications on mental health and maintaining healthy relationships which included: improved mood and confidence, needs are more likely to be met, increased empathy, and healthier relationships. Group additionally discussed potential barriers to communication including: shutting down, vagueness, fear of judgement, assumptions, not really listening, and past negative experiences. Pt receptive of and appeared to benefit from psychoeducation portion discussing different styles of communication. Provided examples of times she has used passive or passive aggressive communication. Pt noted identifying most with passive-aggressive communication and indicated often this can result in becoming very passive or aggressive in communication. Explained that this has resulted in damaged relationships in the past. Progress noted in increased insight into personal communication styles and barriers. Pt to continue in IOP tx to promote healthy change behaviors, improve mood stability, and prevent decompensation. Narrative Note: []
--- NOTE | 2020-02-13 11:19 | BH.SGPN.GN ---
Behaviors/Verbalizations/Mental Status: []Client alert and oriented, casually dressed. Eye contact good. Motor activity appropriate. Speech within normal limits. Affect congruent, mood euthymic, slightly anxious. Thoughts linear, logical, no signs of hallucinations or delusions. Client Response/Progress/Benefit: []Client responded well to session AEB client listening attentively to others and providing input at times during discussion. Engaged in activity and processing importance of being clear and specific when communicating with others. Client worked with group to identify strategies to improve communication. Group worked together to identify strategies to improve communication which included: asking for clarification, taking a break, plan out what want to say prior to discussion, paraphrasing, being clear, concise, consistently communicating, and attentively listening. Client shared she wants to improve her communication by increasing education on effective communication and assertiveness. Client stated she also wants to work on being more concise in her conversations because tends to provide too much detail. Client seemed to benefit from increasing awareness of healthy strategies to improve communication. client to continue IOP to increasing healthy coping skills, challenge distorted thoughts and prevent decompensation. Narrative Note: []
--- NOTE | 2020-02-15 08:17 | BH.MTP_ITS ---
Treatment Plan Review Date of Admission:: 01/16/20 Date of Treatment Plan Review:: 02/15/20 Admitting Diagnoses:: Borderline personality disorder; bipolar disorder, NOS; generalized anxiety disorder; PTSD Current Diagnoses:: Borderline personality disorder; bipolar disorder, NOS; generalized anxiety disorder; PTSD Patient's Response to Treatment:: Client has had a mostly positive response to treatment so far; however, has begun to see a regression in progress in the last week. This is evidenced by a recent decrease in consistency of attendance as well as self-reported increase in mood instability. At admission, client was a much more active participate who contributed to discussions and provided feedback to peers. Client did well to provide insight regarding mental health symptoms and personal barriers contributing to client need for IOP treatment. Recently however, client?s active participation has declined and she has become more passive, distracted, and disengaged in both group and individual sessions. Client will often participate when prompted, but is often by her home environment and outside stimuli preventing uninterrupted engagement. In individual sessions, client is receptive to meeting with this therapist and processing stressors. However, client struggles at times to see consistent progress due to difficulty challenging cognitive distortions, setting boundaries with unhealthy supports, and self-reports difficulties with motivation to complete homework discussed in session. Client often identifies her relationship as a major stressor, but continues to decline to set healthier boundaries or have a support session. Client also talks with her parents and friends regularly which is positive. Therapist unable to gather DSM-5 scores to compare for review. Status of Current Problems and Symptoms: Client presented with a regression of symptoms in the past week due to a situational stressors and limited use of coping mechanisms when addressing identified stressors. Client continues to s truggle with challenging negative and distorted thoughts that reinforce her mental health sx, inhibit mood stability, and impact interpersonal relationships. Client reports her mood and depressive sx change depending on her environment and ability to manage relationship related stressors. Continues to report irritability at times, rumination, and difficulties working towards independence. Client reports she has been using coping skills when beginning to experience sx, which is positive. However, client struggles to consistently apply calming skills, challenge distortions and communicate her needs with supports. Client is working to increase consistency in applying healthy coping skills and increasing independence. Problem #1 Problem Name:: Pt. will improve mood stability, reduce depression, negative thinking, and Status of Goals:: Objective 1-not complete. Client is able to identify triggers that often contribute to depression and mood instability; however, self-reports ongoing difficulties in setting boundaries and applying coping skills learned for better managing triggers when identified. distortions such as all or nothing thinking, mental filtering, and catastrophizing that reinforce depression and hopelessness. Client is able to challenge these thoughts in session, but struggles to challenge these thoughts outside of group. Objective 2- not complete. Unable to gather DSM-5 scores, see progress above. Client has learned healthy coping skills to use to better manage depression and mood instability, but she self-reports some inconsistency with applying these skills and continues to rely primarily on external factors. Team Recommendations:: Client encouraged to continue working on this treatment goals. Client and therapist have been working on challenging distortions, using calming skills, and practicing opposite action. Will continue IOP tx for further tx progress. Problem #2 Problem Name:: Pt. will reduce freq. & intensity of anxiety while increasing functioning Status of Goals:: Objective 1- incomplete. Client can identify some anxiety triggers though struggles to do so when triggers are present or prior to becoming anxious. Client self-identifies several coping skills such as deep breathing, sitting outside, art, and her dogs; however, indicates significant difficulties in remembering to apply identified skills during times of increased anxiety. Issues in consistent skill application may be contributing to client struggles with managing recent new stressors resulting in increased anxiety. Continues to struggle with identifying and implementing in the moment problem solving skills as a result of difficulties with identifying triggers for anxiety. Continues to struggle with relying on external resources for managing emotions. Objective 2- incomplete. Client did not complete mid-point mid-point DSM-5assessment, therefore unable to gather scores. Client continues to report struggling with anxiety on a daily basis. Client self-reports that progress in this area may be limited by lack of active application of treatment interventions and coping skills learned. Team Recommendations:: Client encouraged to continue working on this treatment goal as she continues to experience ruminations, anxiety, paranoia, and agitation. Client and therapist have been working on challenging distortions, practicing calming skills, and relying on internal coping rather than seeking externa support alone.
--- NOTE | 2020-02-16 14:48 | BH.MDN_ITS ---
Multi-Disciplinary Note - Note 60-min Individual Time Started:: 09:40 Date: 02/16/20 Purpose of session/treatment goals addressed:: Pt met with therapist following difficulties in regulating her emotions during process group impacting ability to effectively participate in the group setting. The purpose of this session was to assist client in identifying and actively using calming and healthy emotion regulation skills to prevent crisis escalation and aid in returning to baseline. Another purpose was to create a healthy coping plan for the remainder of the day. Eye Contact:: Fair Motor Activity:: Restless Appearance:: Disheveled Speech:: Pressured, Rambling Mood:: Anxious, Irritable, Dysthymic Affect:: Full Thoughts:: Racing, No evidence of hallucinations/delusions noted Staff Interventions:: Therapist provided a safe and inviting environment for client to discuss factors impacting her ability to manage current emotions. Guided client through a variety of calming and grounding exercises to help her self-sooth and return to baseline. Provided empathic responses and supportive feedback to help normalize current emotions. Provided psychoeducation on change process in mental health recovery. Assessed for any risk. Assisted pt in challenging use of distortions and applied IN techniques to work with pt on creating a plan for the day. Client Response:: Therapist leading process group indicated that client was struggling to manage her emotions throughout the group and requested this therapist meet with client individually. Client was receptive of meeting, tearful throughout, and initially speaking rapidly. She appeared panicked and expressed ?I don?t know what?s wrong. I don?t know why I feel this way. Nothing should be wrong, I don?t have any stressors?. Client initially struggled to focus and was resistant in utilizing any calming skills as she indicated ?I already tried everything and none of it worked?. 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 However, she expressed being able to use deep breathing to calm herself and did well until later in the evening when she again began ?feeling off?. Expressed a brief desire to self- harm which she did not engage in. Noted that doing chores and listening to music was not helpful so she left and went to her old house which she is currently cleaning to move back into. Indicated that she thought a change in environment might be helpful but instead was ?up all night? as she ?just didn?t feel right?. Shared that this has her feeling overwhelmed and concerned that she is going to ?fall back into the way things used to be? because she is struggling to manage her emotions when ?nothing is wrong?. With encouragement, client was willing to practice some grounding and deep breathing techniques. Client able to calm herself enough to slow her speech and engage in discussion. Willing to work with therapist on challenging these thoughts. Receptive of psychoeducation on trauma and how stability can be overwhelming when you have grown up or are used to functioning in a chaotic environment. Discussed that this may lead to thoughts or urges to self-sabotage and client expressed connecting with this. Client and therapist worked on identifying ways to challenge these thoughts and strategies for reminding herself of her progress and ability to continue moving forward even on days she is feeling down or ?off?. Client identified skills she may use for the remainder of the day to feel more present and connected. Expressed a desire to do more to ?give back? but struggles due to physical limitations. Willing to brainstorm possible options such as making cards for nursing homes or picking up trash on her walks. Risks/Concerns:: No risks or concerns noted. Pt denies any active SI, plan, or intent as of this date. 02/16/20. Progress Toward Goals/Plan:: Some regression noted. Client entered session in crisis today and expressed difficulties in regulating her emotions. Reports she is making progress in the areas of application of grounding skills, scrapbooking, practicing thought challenging, and reaching out to supports; but fears she will not be able to retain progress. Pt continues to struggle with emotional reasoning and focusing on external stressors rather than what is with in her control; however, with some assistance was able to identify skills within her control that she can utilize. Will benefit from continued work on emotion regulation and distress tolerance skills. Denies suicidal ideation or thoughts of . Client to continue IOP treatment to improve mood stability, continue to work on healthy boundary setting and self-care, and well as prevent decompensation. Time Stopped:: 11:15
--- NOTE | 2020-02-17 10:15 | BH.SGPN.GN ---
This psychotherapy group was provided via telehealth using two-way, real-time interactive telecommunication technology between the patients and the provider. The interactive telecommunication technology included audio and video. The patient was offered telemedicine as an option for care delivery during the COVID-19 pandemic and consented to this option. Patient location: [place] Provider located at [facility] Behaviors/Verbalizations/Mental Status: []Client alert and oriented, casually dressed. Eye contact good. Motor activity appropriate. Speech within normal limits. Affect congruent, mood anxious. Thoughts linear, logical, no signs of hallucinations or delusions. Client Response/Progress/Benefit: []Pt receptive to session, participating throughout. Provided input as the group brainstormed the positive and negative aspects of stress on physical and mental health. Group worked together to define stress and provided input during discussion about eustress vs distress. Client identified her stressors include: coronavirus, fear of unknown, fear of fallback, money problems, fear of loss, relationships, disconnection with people, house repairs, and time management. Client states most significant stressors currently to include: fear of fallback, relationships, and disconnection with others. Seemed to benefit from increased awareness of her current stressors and impact of too much stress on the mind and body. Recommended to continue IOP tx to increase consistent healthy skill application, improve emotional regulation, and prevent decompensation. Narrative Note: []
--- NOTE | 2020-02-17 11:15 | BH.SGPN.GN ---
This psychotherapy group was provided via telehealth using two-way, real-time interactive telecommunication technology between the patients and the provider. The interactive telecommunication technology included audio and video. The patient was offered telemedicine as an option for care delivery during the COVID-19 pandemic and consented to this option. Patient location: [place] Provider located at [facility] Behaviors/Verbalizations/Mental Status: []Client alert and oriented, casually dressed. Eye contact good. Motor activity appropriate. Speech within normal limits. Affect congruent, mood anxious. Thoughts linear, logical, no signs of hallucinations or delusions. Client Response/Progress/Benefit: []Client engaged participant in session as evidenced by client listening attentively to others and providing input during session. Client reported when she does not manage her stress well client isolates, easily agitated, shuts down, lash out, and avoids. Client contributing during discussion about the 4 A's of managing stress. Client able to give different strategies for all the A's and connect it back to her life. Client wants to work on managing her stressor of her reaction to stress. Client reported she wants to practice adapting by being more patient with herself and adapt her reaction to stressors. Client seemed to benefit from increased awareness of the impact of stress on mental health and increasing repertoire of stress management strategies. Will continue IOP tx to prevent decompensation, continue use of healthy coping and improve daily functioning. Narrative Note: []
--- NOTE | 2020-02-21 10:08 | BH.SGPN.GN ---
This psychotherapy group was provided via telehealth using two-way, real-time interactive telecommunication technology between the patients and the provider. The interactive telecommunication technology included audio and video. The patient was offered telemedicine as an option for care delivery during the COVID-19 pandemic and consented to this option. Patient location: [place] Provider located at [facility] Behaviors/Verbalizations/Mental Status: [] Client alert and oriented, casually dressed. Eye contact good. Motor activity appropriate, though difficult to determine as pt telehealth. Speech within normal limits. Affect congruent, though pt telehealth, mood euthymic. Thoughts linear, logical, no signs of hallucinations or delusions. Client Response/Progress/Benefit: []Client receptive of session, engaged throughout. She did well to work with the group on discussing the quote and identifying ways in which perspective can impact mental health and one's outlook. Client shared that distorted thoughts and unhealthy supports has had impacts on her perspective. Engaged in discussion on how one develops perspective, indicating past experiences and environment. Client worked with group to identify how negative perspective can impact mental health which included: unrealistic expectations, self-sabotage, maintain depression and anxiety, assuming the worst, giving up, increased distorted thoughts, and relationship tension. Client connected with group discussion that having a positive or open-minded perspective can help a person overcome challenges, be more willing to seek help, and increase self-confidence. Provided personal example of perspective positively encouraging her to seek help. Client appeared to benefit from increasing understanding of mental health benefits of a positive perspective and potential consequences to progress when perspective is negative. Progress noted in continued boundaries with ex and improved mood stability. Will continue IOP tx to promote use of healthy coping skills, reduce anxiety symptoms further, and improve mood stability. Narrative Note: []
--- NOTE | 2020-02-21 11:15 | BH.SGPN.GN ---
Addendum entered and electronically signed by Cecelia Nazario LSW 02/21/20 15:41: This psychotherapy group was provided via telehealth using two-way, real-time interactive telecommunication technology between the patients and the provider. The interactive telecommunication technology included audio and video. The patient was offered telemedicine as an option for care delivery during the COVID-19 pandemic and consented to this option. Patient location: [place] Provider located at [facility] Original Note: Behaviors/Verbalizations/Mental Status: []Client alert and oriented, casual dress, hygiene tended to. Eye contact fair to good - telehealth and at times appearing distracted by environment. Motor activity appropriate. Speech within normal limits. Affect congruent, mood anxious and euthymic. Thoughts linear, logical, no signs of hallucinations or delusions. Client Response/Progress/Benefit: [] Client responded well to session, attentive and engaged throughout. Did well to share the floor with fellow participants. Group shared that if one does not recognize their strengths, it could lead to increased mental health symptoms, taking on more than they can handle, and giving up on goals. Connected with the benefits of recognizing personal strengths on improving mental health which included: increased self-confidence, increased willingness to try new things, and open mindedness. Client able to identify personal strengths she possesses which includes: self-awareness, helpfulness, and caring. Client reported identified strengths have supported mental health progress in the past by allowing for her to find a sense of purpose and recognize when warning signs and triggers are prevalent in order to better manage them. Appeared to benefit from recognizing personal strengths and identifying strategies to increase recognition of strengths. ?Will continue IOP tx to prevent decompensation, improve communication and healthy boundaries, as well as reduce negative thinking. Narrative Note: []
--- NOTE | 2020-02-21 13:04 | BH.COMM ---
Communication Note - Communication with Client Communication Note: Pt called this morning to cancel group as she indicated feeling ill. She expressed plans to attend Group as well as individual therapy tomorrow, 02/21/20.
--- NOTE | 2020-02-21 13:06 | BH.COMM ---
Communication Note - Communication with Client Communication Note: Pt attended group on this date however indicated she could not stay for individual session as planned. Willing to reschedule and will meet with this therapist tomorrow, 02/22/20.
--- NOTE | 2020-02-22 10:10 | BH.SGPN.GN ---
Behaviors/Verbalizations/Mental Status: []Client alert and oriented, casually dressed, disheveled. Eye contact fair, at times struggling to remain on screen as pt telehealth. Motor activity appropriate. Speech WNL. Affect congruent, mood irritable. Thoughts linear, logical, no signs of hallucinations or delusions. Client Response/Progress/Benefit: []Client providing input throughout discussion. Client contributed during discussion of the quote and shared that although our thoughts can destroy relationships and keep us from reaching our goals if we are not careful. Connected with the discussion about how distorted thought patterns can reinforce mental health symptoms and impact relationships. Client noted that she connects with absolute thinking, catastrophizing, and personalization. Gave an example of a situation that occurred with her ex-boyfriend in the past in which overgeneralization caused an argument. Appeared to benefit from increasing awareness of cognitive distortions and how they can impact emotions and behaviors. Progress noted in client ability to continue to prevent crisis escalation, however, recently has been struggling with consistent group engagement. Will continue IOP tx to prevent decompensation, improve daily functioning, and increase mood stability. Narrative Note: []
--- NOTE | 2020-02-22 11:19 | BH.SGPN.GN ---
This psychotherapy group was provided via telehealth using two-way, real-time interactive telecommunication technology between the patients and the provider. The interactive telecommunication technology included audio and video. The patient was offered telemedicine as an option for care delivery during the COVID-19 pandemic and consented to this option. Patient location: [place] Provider located at [facility] Behaviors/Verbalizations/Mental Status: []Client alert and oriented, casually dressed. Eye contact good. Motor activity appropriate. Speech within normal limits. Affect constricted, mood anxious and dysthymic. Thoughts linear, logical, no signs of hallucinations or delusions. Client Response/Progress/Benefit: []Pt engaged participant as evidenced by pt providing input throughout session, taking notes, and completed worksheet. Pt engaged in discussion about discussing additional cognitive distortions. Pt contributed during discussion about how to reframe distorted thoughts to a more rational statement. Pt shared example of a personal distorted thought she has I?m never going to be able to live on my own.? Pt reported this thought makes her feel incapable. Pt identified distortion to be overgeneralization. Pt stated she reframed the distorted thought to ?With help and support I can develop skills in order to live on my own?. Pt seemed to benefit from practicing identifying and reframing distorted thoughts. Pt to continue IOP level of care to increase consistent use of healthy coping, challenge distorted thoughts and prevent decompensation. Narrative Note: []
--- NOTE | 2020-02-22 13:08 | BH.COMM ---
Communication Note - Communication with Client Communication Note: Pt did not show for group as scheduled or cancel. However, called at 9:50am to indicate sleeping through her alarm. Pt and therapist discussed the importance of consistent attendance on maintaining and furthering treatment progress. Pt reports understanding and was willing to attend group 2&3 via Zoom. Pt agreeable to meet for individual session following group however later canceled individual session as she noted she did not feel well. Willing to reschedule for Thursday morning.
--- NOTE | 2020-02-23 09:08 | BH.SGPN.GN ---
This psychotherapy group was provided via telehealth using two-way, real-time interactive telecommunication technology between the patients and the provider. The interactive telecommunication technology included audio and video. The patient was offered telemedicine as an option for care delivery during the COVID-19 pandemic and consented to this option. Patient location: [place] Provider located at [facility] Behaviors/Verbalizations/Mental Status: [] Client alert and oriented, casually dressed. Eye contact good. Motor activity appropriate. Speech within normal limits. Affect congruent, mood euthymic. Thoughts linear, logical, no signs of hallucinations or delusions. Reviewed client?s symptom tracker, no risk for suicidal ideation, denies plan, or intent as of 02/23/20. Client Response/Progress/Benefit: [] Client attentive and willing to share with the group. Reports feeling ?motivated and grateful today as she was able to get up early and sit outside prior to group. Pt noted that she often finds the outdoors to be relaxing and a good grounding skill. Expressed current mental health wins as using opposite action and positive self-talk to motivate herself to work on a project for herself independently. Noted that in the past she would not have done so and relied on someone else to do it for her. Shared feeling accomplished as a result. Current stressor noted as having a sty in her eye which is painful and noted as impacting her self-confidence. Expressed that she could find something to do today that would keep her from messing with it. Appeared to benefit from identifying areas of progress as well as the supportive and structured group setting. Will continue IOP tx to maintain stability and continue to promote healthy mental health sx management. Narrative Note: []
--- NOTE | 2020-02-23 10:17 | BH.SGPN.GN ---
This psychotherapy group was provided via telehealth using two-way, real-time interactive telecommunication technology between the patients and the provider. The interactive telecommunication technology included audio and video. The patient was offered telemedicine as an option for care delivery during the COVID-19 pandemic and consented to this option. Patient location: [place] Provider located at [facility] Behaviors/Verbalizations/Mental Status: []Client alert and oriented, casual appearance. Eye contact fair. Motor activity appropriate. Speech within normal limits. Affect constricted, mood anxious. Thoughts linear, logical, no signs of hallucinations or delusions. Client Response/Progress/Benefit: [Client responded well to session, contributing to discussion and engaged during the activity. Attentive during discussion on the quote. Group identified benefits to change included: personal growth, improving relationships, advancement in job, improved mood, better outlook on life, increased motivation and improved hopefulness. Worked with the group to identify barriers to change, which included: unmanaged emotions, toxic person, lack of knowledge of skills, fear of the unknown, self-sabotage, fear of failure, and cognitive distortions. Client participated along with group in activity where they identified and discussed the emotions related to change. Client reported her initial reaction to change is feeling anxious, irritable, angry, ?a roller coast of emotions?, which ultimately leads to ?shut down?. Benefited from increased awareness and understanding of emotions, benefits, and barriers related to change. Will continue IOP tx to increase consistent application of skills, challenge distorted thoughts and prevent decompensation.
--- NOTE | 2020-02-23 11:16 | BH.SGPN.GN ---
This psychotherapy group was provided via telehealth using two-way, real-time interactive telecommunication technology between the patients and the provider.?The interactive telecommunication technology included audio and video.? ?The patient was offered telemedicine as an option for care delivery during the COVID-19 pandemic and consented to this option. ?Patient location: [place] ?Provider located at [facility] Behaviors/Verbalizations/Mental Status: []Client alert and oriented, casually dressed and groomed. Eye contact fair. Motor activity appropriate. Speech within normal limits. Affect congruent, mood anxious, agitated. Thoughts linear, logical, no signs of hallucinations or delusions. Client Response/Progress/Benefit: []Client was an active participant, contributing to discussion and listening attentively to peers. Client participated during discussion on the change process as well as weighing the pros and cons associated with change. She shared specific emotions one might experience throughout the process of change, indicating fear and discomfort as emotions common with change. Client benefited from learning to work through pros/cons of personal changes through use of decisional balance sheet. Identified a change she wants to make is continuing to be more independent in her behaviors. Client able to identify the pros and cons of this change and indicated that making the change would empower client, reduce fear of being alone, reduce dependence on others, and increase her ability to function. Client?s goal today is to track two tasks a day that she completes independently. Recommended continued IOP tx to promote mood stability, decrease impulsivity, and increase the use of healthy coping skills. Narrative Note: []
--- NOTE | 2020-02-27 15:30 | BH.MDN_ITS ---
Multi-Disciplinary Note - Note 30-min Individual Time Started:: 11:32 Date: 02/27/20 Purpose of session/treatment goals addressed:: The purpose of this session was to follow-up with client regarding concerns related to attendance and recent regression in treatment progress. Another goal coping plan for managing emotions and discuss skills client can use when face with increased anxious or ?paranoid? thoughts. Staff Interventions:: Therapist asked open-ended and furthering questions to elicit information regarding recent changes in attendance and current stressors impacting overall mental health tx progress. Utilized CBT components to aid client in identifying and challenging distortions. Applied Motivational Interviewing and behavioral activation techniques to assist client with addressing barriers to tx progress. Client Response:: Client open to meeting with this therapist to follow-up as she missed previous two scheduled individual sessions. Client reports that this has been due to not feeling well and difficulties waking up. Upon further discussion client admits she has been beginning to isolate herself and withdraw more from others over the past few days. Reports she does not feel this will lead to further negative impacts on overall mental health and indicated beliefs she just ?needed a break?. Willing to review cycle of depression and indicated understanding potential impacts of current behavior on reinforcing depressive sx. Client additionally shared struggling to wake up for session as she has been experiencing increased anxiety at night preventing her from sleeping. Expressed worry that someone is in the house or that she is hearing voices when hearing small movements or shifts in the house. Client noted the noises sound like whispers which result in client worrying someone might break in. Willing to work with therapist on challenging these thoughts, though struggled in effectively doing so. Appeared to respond well to review of skills and creating a coping p rafael for addressing nighttime anxiety. Reports plans to apply skills reviewed as needed and indicates plans to attend IOP program tomorrow. Risks/Concerns:: Client future oriented. Client agreeable to utilize skills reviewed. Denies any active suicidal ideation, plan or intent as of this date. Progress Toward Goals/Plan:: Progress limited, some regression noted. Client has recently missed several appointments and struggled to remain engaged when in attendance. Reports this is due to increase anxiety impacting sleep. Willing to review skills though continues to struggle with active application and often reports resistance in doing so. Reports skills either are ?too much work? or client does not feel they will work which is likely negatively impacting progress. Plan for client to continue IOP tx to continue to improve management of mental health sx and prevent further decompensation. Time Stopped:: 12:02
--- NOTE | 2020-02-28 12:50 | BH.MDN_ITS ---
Multi-Disciplinary Note - Note 30-min Individual Time Started:: 14:04 Date: 02/28/20 Purpose of session/treatment goals addressed:: The purpose of this session was to follow-up with client regarding concerns presented in prior session. Another goal was to further assess for safety and review coping plan for managing identified stressors. Staff Interventions:: Therapist asked open-ended and furthering questions to elicit information regarding current sx and stressors, as well as client application of coping skills reviewed. Assessed client for risk, reviewed plan for coping, as well as aided client in identifying additional coping skills she may use. Applied Motivational Interviewing and behavioral activation techniques to aide client in identifying skills for addressing mental heal sx. Client Response:: Pt requested to speak with this therapist as she indicated continuing to struggle with overwhelming emotions and ongoing ?paranoia? regarding noises she is hearing in her house. She discussed that her fear of what the noises may be is keeping her from sleeping which has begun to impact her mental health and ability to follow through with plans such as attending IOP group. Client discussed she did not try the potential coping skills discussed in session the previous date as she did not write them down and forgot what had been reviewed. Therapist and client again reviewed various skills she may use to challenge negative and distorted thoughts increasing feelings of paranoia. Client expressed that she would try humming, practicing guided imagery, journal, listen to music, and talk to her dogs. Additionally, noted plans to refrain from looking out the windows as she often thinks she sees images that are not there when it is dark out. Risks/Concerns:: Client future oriented and reports plans to attend appointment with [facility] to begin outpatient therapy tomorrow. Client agreeable to utilize skills reviewed to maintain safety throughout the night. Progress Toward Goals/Plan:: Progress limited as pt continues to report depressive sx and anxiety impacting overall mental health. Pt continues to report limited follow-through with skills discussed in individual and group sessions. Pt recently began struggling with attendance as well which may be impacting progress as well. Plan for pt to continue IOP tx to continue to imp rove management of mental health sx while establishing outpatient care. Time Stopped:: 14:38
--- NOTE | 2020-02-29 09:06 | BH.SGPN.GN ---
Behaviors/Verbalizations/Mental Status: [] Client alert and oriented, casual dress - disheveled AEB client reporting she has not showered, hygiene fair. Wearing a shirt that reveals all her self-injury scars from prior attempt. Eye contact good. Motor activity appropriate. Speech within normal limits. Affect unable to gather due to client wearing a mask for COVID-19 protocol, mood agitated and dysthymic. Thoughts linear, logical, no signs of hallucinations or delusions. Reviewed client?s symptom tracker, no signs of suicidal ideation, plan, or intent as of today. Client Response/Progress/Benefit: [] Client receptive to session, providing feedback to peers and engaged in discussion. Client reports feeling agitated and overwhelmed today as she relied on her ex-boyfriend?s friends for a ride to group and indicated that they had asked her for money which she gave them despite being low on finances. Client indicates that finances are currently her largest stressor and have been creating additional tension in her relationship with her father. Pt expressed that she has been trying to use skills of positive affirmations and opposite action but is struggling with consistent follow through. Shared lacking motivation and is beginning to turn to sleep as her primary means of coping. Continues to struggle with addressing what areas impacting her mental health are within her control and apply skills to improve coping capabilities. She appeared to benefit from support and structure of the group. Will continue IOP tx to promote more consist mood stability, improve daily functioning, prevent decompensation, and reduce intensity of symptoms.
--- NOTE | 2020-02-29 09:09 | BH.SGPN.GN ---
This psychotherapy group was provided via telehealth using two-way, real-time interactive telecommunication technology between the patients and the provider. The interactive telecommunication technology included audio and video. The patient was offered telemedicine as an option for care delivery during the COVID-19 pandemic and consented to this option. Patient location: [place] Provider located at [facility] Behaviors/Verbalizations/Mental Status: []Client alert and oriented, disheveled in appearance. Eye contact fair. Motor activity appropriate. Speech within normal limits. Affect constricted, mood anxious. Thoughts linear, logical, no signs of hallucinations or delusions. Client Response/Progress/Benefit: []Pt responded well to session AEB pt openly sharing thoughts and feelings with group. Pt stated she has been struggling because has a lot going on which she stated is increasing her stress. Pt reported she is stressed about trying to move back to her own house to be independent. Pt stated due to increased stress she is starting to experience auditory hallucinations. Pt reported she is feeling more paranoid, especially at night which is now impacting her sleep. Pt recognizes her stress triggers hallucinations and stated she is engaging in distraction activities to decrease her stress. Pt identified a positive is that she has supports to help her. Pt seems to lack insight and awareness that she may be self-sabotaging by choosing to move on her own too son. Pt also seems to lack awareness that starting to hang out with her ex-boyfriend may be unhealthy for her, considering her ex has been a significant source of stress for pt. Pt to continue IOP to increase consistent use of healthy coping, assist pt with gaining awareness of her self-destructive behaviors, and prevent further decompensation. Narrative Note: []
--- NOTE | 2020-02-29 10:18 | BH.SGPN.GN ---
Behaviors/Verbalizations/Mental Status: []Alert and oriented. Eye contact is fair to good. Motor activity is appropriate. Appearance is casual. Speech is within normal limits, interrupting at times. Mood is anxious and irritable. Affect unable to gather due to wearing a mask for COVID-19 protocol. Thoughts are linear and logical. No evidence of psychosis. Client Response/Progress/Benefit: []Client was an active participant in group discussion and activity. Listened to discussion on quote and often nodding. Client agreed with peers that in life there are different forces but it is ultimately up to the individual if they grow from a force or not. Client shared growth requires effort and follow through. Group worked together to come up with common negative forces in life which can hold them back from growth. These included; negative thinking, self-doubt, toxic people, lack of effort, and use of unhealthy skills. Group then worked together to identify common positive forces which help them grow. These included; healthy coping skills, positive support, positive self-talk, and self-care Client stated even mistakes and failure can become positive forces in life. Benefited AEB increased insight and awareness on the impact of negative and positive forces on mental wellness. Will continue IOP tx as she has been reporting an increase in anxiety symptoms, spending time with previously unhealthy supports, and has a history of impulsivity. Narrative Note: []
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
--- NOTE | 2020-03-07 12:55 | BH.MDN ---
Multi-Disciplinary Note - Note 30-min Individual Time Started:: 10:46 Date: 11/30/20 Purpose of session/treatment goals addressed:: The purpose of this session was to follow-up with client regarding attendance concerns and factors contributing to recent regression in tx goal progress. Discussed aftercare plans. Symptoms/Behavior:: This counseling session was provided via telehealth using two-way, real-time interactive telecommunication technology between the patient and the clinician. The interactive telecommunication technology included audio and video. The patient was offered telehealth as an option for care delivery during the COVID-19 pandemic and consented to this option. Patient location: [place]. Provider located at [facility] Motor Activity:: Appropriate Appearance:: Casual Speech:: Appropriate Mood:: Anxious Affect:: Congruent Thoughts:: Linear, Logical, No evidence of hallucinations/delusions noted Staff Interventions:: Therapist asked open-ended and furthering questions to elicit information regarding current sx, stressors, and barriers impacting tx goal progress and program attendance. Worked with client to identify current barriers to attendance and tx engagement, as well as applied CBT behavior chain analysis to identify potential impacts on mental health. Encouraged client to continue using healthy coping skills and working on identified treatment goals in the counseling setting. Provided supportive feedback and empathic responses. Reviewed aftercare plans. Client Response:: Group therapist requested pt meet for individual session due to difficulties engaging in group environment. Pt has been struggling with attendance and treatment engagement over the past two weeks, often not looking at screen or multi-tasking while attending virtually. Therapist addressed these concerns with pt, sharing concern for pt?s mental health as well. Pt reports she continues to be stressed about her relationship with parents, finances, and work on the house which has left her feeling tired and with limited motivation to get up in time for IOP group on scheduled days. Shared however that she is doing better this week since she has been spending more time with her ex. Discussed importance of of healthy supports on maintaining mental wellness, citing concerns regarding pt relationship issues and boundaries impacting mental health in the past. Pt noted ex has been ?more supportive? of her mental health and she considers him to be a healthy support for her. Therapist again expressed concerns as pt?s ex has been the primary source of stress impacting pt mental health in the past. Pt noted things are more positive within the relationship, expressing improved communication as well. Continues to minimize and deflect when discussing impact of relationship on maintaining mental health stability in the past. Went on to note that she is now making self-care more of a priority which she had not done in the past. Shared no longer wanting to continue IOP tx as she feels she would benefit more from a DBT specific model. Therapist in agreement with this as pt has previously completed [facility] IOP program with some benefit but could benefit from additional DBT specific approaches. Therapist and pt discussed strategies for continuing to make progress with mental health moving forwards and reviewed importance of healthy boundaries and strong communication with supports. Therapist encouraged client to continue with outpatient counseling as well and reviewed importance of aftercare on preventing decompensation. Reviewed pt aftercare plans. Risks/Concerns:: Client future oriented and reports plans to begin DBT tx and continue individual outpt counseling at [facility]. Denies any SI, plan, or intent. Progress Toward Goals/Plan:: Progress limited as pt continued to report depressive sx and anxiety impacting overall mental health until most recent appt. Reports difficulties engaging in IOP tx due to having had the classes previously and difficulties with motivation to consistently attend tx. Requested referral to dbt specific IOP tx focusing on DBT treatment strategies as client hopes a different setting and perspective will benefit her. Client will follow up with her outpatient providers at [facility]. Client has a psychiatrist and outpatient Counselor at [facility] will see client for continuity of care. Time Stopped:: 12:00
--- NOTE | 2020-03-08 09:03 | BH.SGPN.GN ---
This psychotherapy group was provided via telehealth using two-way, real-time interactive telecommunication technology between the patients and the provider.?The interactive telecommunication technology included audio and video.? ?The patient was offered telemedicine as an option for care delivery during the COVID-19 pandemic and consented to this option. ?Patient location: [place] ?Provider located at [facility] Behaviors/Verbalizations/Mental Status: []Client alert and oriented, disheveled appearance-showing her suicide attempt scars. Eye contact good. Motor activity appropriate. Speech within normal limits. Affect unable to gather due to wearing a mask for COVID-19 protocol, mood irritable. Thoughts linear, logical, no signs of hallucinations or delusions. Reviewed client?s symptom tracker, no risk for suicidal ideation, plan, or intent as of 03/08/20. Client Response/Progress/Benefit: []Client responded well to session, distracted at times, but overall attentive. Client has become more inconsistent with IOP attendance and when in attendance often disengages or becomes easily distracted. Client reports feeling irritated today. Client stated she is irritated because of ongoing stressors in her life and frustrations with her parents. Client able to identify some coping skills she has been using which included: opposite action, going to a park, and socializing. Client stated she was able to practice mindfulness at the park which helped client regulate her mood for a period of time. Appeared to benefit from reflecting on her application of coping skills. Progress has been variable based on the day/week and is often correlated to external situations. Will continue IOP tx to prevent decompensation, establish aftercare, and increase application of healthy coping skills. Narrative Note: []
--- NOTE | 2020-03-08 11:20 | BH.SGPN.GN ---
This psychotherapy group was provided via telehealth using two-way, real-time interactive telecommunication technology between the patients and the provider. The interactive telecommunication technology included audio and video. The patient was offered telemedicine as an option for care delivery during the COVID-19 pandemic and consented to this option. Patient location: [place] Provider located at [facility] Behaviors/Verbalizations/Mental Status: []Client alert and oriented, casual in appearance - disheveled. Eye contact fair, at times her camera video would disconnect impacting ability to properly assess. Motor activity appropriate. Speech within normal limits. Affect congruent, mood dysthymic. Thoughts linear, logical, no signs of hallucinations or delusions. Client Response/Progress/Benefit: []Pt active participant and contributing to discussion throughout. Appeared to connect with the discussion reviewing three categories of skills for managing anxiety which included mind-based, body-based, and self-soothing. Pt provided examples in the various categories and did well to identify a skill in each mindfulness category she is willing to practice. Identified skills included: body-based: earthing, Self-soothing as: taking a hot bath, and mind-based: 5-seneses skill. Pt seemed to benefit from increased awareness of healthy skills to manage anxiety related symptoms and in identifying skills willing to practice outside treatment environment. Progress continues to be limited due to inconsistent attendance and limited application of healthy skills in the moment per pt self-report. Client to continue IOP level of care to increase application healthy coping skills, continue to promote emotion regulation skills, and prevent decompensation. Narrative Note: []
--- NOTE | 2020-03-09 10:10 | BH.SGPN.GN ---
Behaviors/Verbalizations/Mental Status: [] Client alert and oriented, casually dressed, grooming is disheveled. Eye contact fair - appearing distracted by doing other things in the room, client participating via telehealth. Motor activity restless AEB client fidgeting with tools during group. Speech within normal limits, at times struggling with speaking over other. Affect congruent, mood euthymic. Thoughts linear, logical, no signs of hallucinations or delusions. Client Response/Progress/Benefit: []Pt engaged in discussion however appearing distracted at times by her home environment and which ultimately impacted overall ability to engage during the activity portion. Client expressed connecting with the topic of managing emotions and noted that not expressing your emotions can lead to taking things out on others or saying things you don?t mean. Client helped group identify barriers that impact one?s ability to communicate when emotions are high. These barriers included; shutting down, lack of self-care, irritability, fear of reactions, and distorted thinking patterns. Client reported lack of self-care can keep her from communicating when she feels strong emotions. Client became distracted by her home environment during challenge activity which ultimately prevented her from engaging. Lack of prioritizing her mental health care and poor follow through continue to impede ability to make progress. Giving limited progress in treatment, she is agreeable to referrals for DBT specific group counseling to improve management of emotions and healthier follow-through with skill application. See discharge summary Narrative Note: []
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
--- NOTE | 2020-03-09 16:36 | BH.IGGP_ITS ---
Aftercare Plan - Demographics Treatment End Date:: 03/09/20 Psychiatrist:: Coni Hendricks Psychiatrist Office #:: [phone] [facility] Therapist:: Cecelia Nazario Therapist Phone #:: [phone] - Medications Home Medications: Home Medications Clonazepam [Klonopin] 1 mg PO DAILY PRN 11/02/19 Oxcarbazepine [Trileptal] 300 mg PO DAILY 01/18/20 Oxcarbazepine [Trileptal] 600 mg PO QHS 01/18/20 Sertraline HCl [Zoloft] 50 mg PO DAILY 30 Days #30 tab 02/29/20 - Plan Details Progress/Aftercare Plan Details:: Even though there were highs and lows in treatment, you have shown progress with decreasing hopelessness, improving independent living skills, and challenging negative thoughts. You reported progress in increasing use of grounding skills, creating and completing small independent living goals, challenging negative thoughts, and trying to use opposite action when tempted not to apply healthy coping skills. You were able to reframe difficult situations and find small positives, talk with supports when needed and even when not wanting to, and work on consistently applying healthy coping skills. You continue to be highly active with your friends and set goals for yourself for your future. You have been able to increase awareness of emotion dysregulation warning signs and symptoms and have learned what types of coping skills to apply. And are actively working on more consistently remembering to utilize the skills you have learned. Even though it was not always easy, you were receptive to challenging negative thoughts and learning new skills to apply. The plan is for you to follow up with outpatient counseling and continue psychiatry with [facility]. Strategies for Success:: 1. Keep active! Maintain a routine with supports, keep going for mindfulness walks, and playing with the dogs. 2. Reach out to HEALTHY supports, especially on challenging days or when you feel the urge to isolate! Avoid isolating which maintains the depressive cycle, contributes to your paranoia, and prevents you from getting the help you need. 3. Challenge negative thoughts. Remember strategies such as: is it true? is it helpful? is there evidence against this? are there exceptions to this? 4. Set BOUNDARIES with toxic people and remember that you get to control your emotions and happiness. If you let others take advantage of your time and needs, they will. 5. Communicate with family and supports, remember no one is a mind-reader and even though it may not always seem like it ? they are here and want to help. 6. Practice calming coping skills daily and keep working on applying mindfulness! 7. Continue to journal, listen to music, and reminding yourself of small positives! - Appointments Appointments/Referrals to Other Services:: 1. Follow up with [facility] for individual counseling later this month and psychiatry next month. 2. Follow up with one of the DBT groups we discussed.
== END 2020-03-13 23:59 ==
LOC: BHIOP 09:00
PROVIDERS: PCP Internal Medicine; Referring Provider Psychiatry & Neurology Psychiatry; Visit Provider Psychiatry & Neurology Psychiatry
DX: F60.3 Borderline personality disorder (principal); F41.1 Generalized anxiety disorder; F43.10 Post-traumatic stress disorder, unspecified; F12.90 Cannabis use, unspecified, uncomplicated; M35.00 Sjogren syndrome, unspecified; M79.7 Fibromyalgia; E66.9 Obesity, unspecified; M32.9 Systemic lupus erythematosus, unspecified; F17.210 Nicotine dependence, cigarettes, uncomplicated; Z79.899 Other long term (current) drug therapy; Z91.5 Personal history of self-harm; Z72.89 Other problems related to lifestyle
CPT/HCPCS: H0035; 90832; 90837; 90853

== ENCOUNTER 2023-07-19 21:03 | Emergency (ER) | payer MEDICARE, MEDICAID, SELFPAY ==
[2023-07-19 21:04] VITALS: BP 108/68; PULSE 86; RESP 16; TEMP 36.4; O2SAT 100
--- NOTE | 2023-07-19 21:29 | US_ITS ---
INDICATION: Left ovarian cyst - increased pain EXAMINATION: Ultrasound US Transvaginal Non-OB TECHNIQUE: Transvaginal (for optimal evaluation of the adnexa) pelvic ultrasound was performed. Grayscale, spectral waveform, and color flow Doppler evaluation of the adnexa. COMPARISON: None. FINDINGS: The uterus measures 8.4 x 3 cm. Endometrial thickness is within normal limits measuring 3 mm. Myometrial penetration of the left arm of the intrauterine device is suspected. The distal tip of the left arm is 2 mm from the serosal margin of the fundus. No inferior migration of the IUD. Trace fluid in the cervical canal. Few small nabothian cysts. 1 cm dominant follicle in the right ovary. 2 cm possible collapsed and/or hemorrhagic cyst in the left ovary. Flow to the ovaries bilaterally. No significant free pelvic fluid. US/Transvaginal Non- IMPRESSION: Suspected myometrial penetration of the left arm of the intrauterine device. 2 cm possible collapsed or hemorrhagic cyst in the left ovary. Electronically Signed: Armando Fontaine MD at 0:13 EST ,
[2023-07-19] MEDS: HYDROcodone Bitartrate/Apap 5/325 Tablet PO (21:36)
[2023-07-19] MEDS: Naproxen 500 MG Tablet PO (21:36)
--- NOTE | 2023-07-19 22:47 | ED.VIS.FEGU ---
HPI HPI - Female History of Present Illness Chief Complaint: Female C/O Detail of Chief Complaint: Pelvic pain Narrative Narrative: Patient presents secondary to pelvic pain. She was recently diagnosed with a left ovarian cyst. Tonight during intercourse she had severe increased pain in her pelvis. PFSH [facility] Medical History Alcohol use disorder Bipolar disorder, unspecified Borderline personality disorder Cannabis use disorder, mild, abuse Generalized anxiety disorder History of Sjogren's disease Obstructive sleep apnea PTSD (post-traumatic stress disorder) Home Medications hydrocodone-acetaminophen 5-325mg 5mg-325mg 1 tab PO Q6H PRN PRN Pain 3 days #10 TABLETS 07/20/23 [Rx Last Taken Unknown] Allergy/AdvReac Type Severity Reaction Status Date / Time diphenhydramine AdvReac Other Verified 07/19/23 21:04 [From Benadryl] methylphenidate AdvReac Other Verified 07/19/23 21:04 [From Ritalin] Penicillins AdvReac Rash Verified 07/19/23 21:04 Sulfa (Sulfonamide AdvReac Rash Verified 07/19/23 21:04 Antibiotics) Social History Smoking Status: Current every day smoker tobacco type: cigarettes ROS ROS ED Constitutional Constitutional ED: Denies chills or fever(s) Eyes Eyes: Denies discharge from eye(s) ENT ENT ED: Denies discharge from eye(s), rhinorrhea or sore throat Cardiovascular Cardiovascular: Denies chest pain Respiratory/Chest Respiratory/Chest: Denies cough or dyspnea Gastrointestinal Gastrointestinal: Reports abdominal pain; Denies nausea or vomiting Genitourinary Genitourinary ED: Denies dysuria Musculoskeletal Musculoskeletal: Denies back pain or extremity pain Integumentary Denies Abrasions or rash Neurologic Neurologic: Denies headache(s) or weakness Psychiatric Psychiatric: Denies anxiety or depression Allergic/Immunologic Allergic/Immunologic ED: Denies lip swelling or urticaria EXAM Physical Exam Const Vital Signs: 07/19/23 21:04 07/19/23 23:16 Temperature 97.6 F L Temperature Source Temporal Pulse Rate 86 84 Respiratory Rate 16 18 Blood Pressure 108/68 113/62 Blood Pressure Mean 81 79 Pulse Ox 100 99 Oxygen Delivery Method Room Air Positive well nourished and well developed General Appearance ED: well developed HEENT Reports moist mucous membranes Eyes EOMs intact bilaterally Chest Wall inspection of chest normal and palpation of chest normal Resp normal respiratory effort and clear to auscultation bilaterally Cardio regular rate and regular rhythm GI GI Narrative: Abdomen soft with tenderness in the lower abdomen. No guarding or rebound at this time. Extremity normal to inspection Neuro oriented x3 and no sensory deficits noted Motor Exam: strength 5/5 throughout Psych mental status grossly normal Skin no rashes or lesions noted MDM MDM MDM Narrative Medical decision making narrative: Pelvic ultrasound ordered to evaluate ovarian cyst and possible torsion. Urinalysis obtained to evaluate for infection/hematuria. Urine test ordered. Patient given a tab of [place] as well as naproxen for pain. Radiography Diagnostic Testing: Clinical Impression(s) from Imaging Studies Transvaginal US 07/19/23 21:29 IMPRESSION: Suspected myometrial penetration of the left arm of the intrauterine device. 2 cm possible collapsed or hemorrhagic cyst in the left ovary. Electronically Signed: Armando Fontaine MD at 0:13 EST , Treatment and Re-Evaluation Narrative: Patient was unable to provide a urine sample here. Pelvic ultrasound reveals suspected myometrial penetration of the left arm of the intrauterine device. I did pull up her ultrasound from a few days ago and it just commented that the intrauterine device was in appropriate position. There is a 2 cm possible collapsed or hemorrhagic cyst in the left ovary. No evidence of torsion. At this time patient be given a prescription for [place] and will call FOUNDER AND CHIEF EXECUTIVE OFFICER tomorrow morning for follow-up. Discharge Plan Triage Chief Complaint: Female C/O ED Provider: Caryl Pardo Dx/Rx/DC Orders Clinical Impression: Ovarian cyst Instructions: ED Ovarian Cyst Prescriptions: New hydrocodone-acetaminophen 5-325 mg tablet 1 tab PO Q6H PRN PRN (Reason: Pain) 3 Days Qty: 10 0RF Primary Care Provider: Demetria Fernandez Referrals: Demetria Fernandez MD [Primary Care Provider] - Christina Sapp DO [Med Staff - Active Staff] - As soon as possible Activity Restrictions/Additional Instructions: As discussed, your ultrasound reveals a partially collapsed cyst on the left ovary. There is no evidence of ovarian torsion. It does appear your IUD has shifted. Please follow-up with your FOUNDER AND CHIEF EXECUTIVE OFFICER in regards to this. Disposition Disposition: Home, Self Care
[2023-07-19 23:16] VITALS: BP 113/62; PULSE 84; RESP 18; O2SAT 99
== END 2023-07-20 01:03 | disposition home or self-care (01) ==
PROVIDERS: Emergency Provider Emergency Medicine; PCP Internal Medicine; Visit Provider Emergency Medicine
DX: N83.209 Unspecified ovarian cyst, unspecified side (principal); R10.32 Left lower quadrant pain; F17.210 Nicotine dependence, cigarettes, uncomplicated; G47.33 Obstructive sleep apnea (adult) (pediatric)
CPT/HCPCS: 76830; 99283

== ENCOUNTER 2023-07-23 18:10 | Emergency (ER) | payer MEDICARE, MEDICAID, SELFPAY ==
[2023-07-23 18:11] VITALS: BP 141/105; PULSE 109; RESP 18; TEMP 36.2; O2SAT 99
--- NOTE | 2023-07-23 19:54 | CT_ITS ---
EXAM: CT ABDOMEN AND PELVIS WITH INTRAVENOUS CONTRAST CLINICAL INDICATION: llq PAIN TECHNIQUE: Helically acquired images were obtained of the abdomen and pelvis with intravenous contrast. This CT exam was performed using one or more of the following dose reduction techniques: automated exposure control, adjustment of the mA and/or kV according to patient size, and/or use of iterative reconstruction technique. CONTRAST: IV 100mL [id number] COMPARISON: Pelvic ultrasound on the same date. FINDINGS: LOWER THORAX: No significant abnormality. Lung bases are clear. No cardiomegaly. No significant pericardial effusion. ABDOMEN: LIVER: No significant abnormality. Homogeneous. No focal mass. GALLBLADDER AND BILE DUCTS: No significant abnormality. No calcified gallstones. No gallbladder distention or wall edema. No intra- or extrahepatic biliary ductal dilation. PANCREAS: No significant abnormality. No focal cystic or solid mass. SPLEEN: No significant abnormality. Normal size without focal cystic or solid mass. ADRENALS: No significant abnormality. No nodules. KIDNEYS AND URETERS: Left lower pole nonobstructing nephrolithiasis. Punctate right lower pole nonobstructing nephrolithiasis. The largest of the stones measures 2 to 3 mm. No evidence of hydronephrosis. No discrete ureteral stones. STOMACH AND BOWEL: No significant abnormality. No stomach or bowel distention. No focal inflammatory change. PELVIS: APPENDIX: Normal appendix in the right lower quadrant. BLADDER: No significant abnormality. REPRODUCTIVE: The left arm of the IUD appears to extend to the peripheral margin of the uterus suggesting myometrial penetration as suspected on comparison exam. No discrete evidence of uterine perforation. ABDOMEN and PELVIS: INTRAPERITONEAL SPACE: No significant abnormality. No ascites or other fluid collection. No free air. BONES/JOINTS: No significant abnormality. No suspicious lytic or blastic abnormality. SOFT TISSUES: No significant abnormality. No discrete abdominal or pelvic wall hernia. VASCULATURE: No significant abnormality. Abdominal aorta is non-dilated. LYMPH NODES: No significant abnormality. No enlarged lymph nodes. CT/Abdomen/Pelvis W IV Cont ONLY IMPRESSION: 1. The left arm of the IUD appears to extend to the peripheral margin of the uterus suggesting myometrial penetration as suspected on comparison exam. No discrete evidence of uterine perforation. 2. Bilateral nonobstructing nephrolithiasis. Electronically Signed: Rao Bardales DO at 21:25 EST ,
--- NOTE | 2023-07-23 19:55 | EX.ED.DYSGE1 ---
HPI History of Present Illness Chief Complaint: Abd Pain Informant: patient Narrative Narrative: Patient Carmita presents with left lower quadrant pain. She was diagnosed with an ovarian cyst. Then the cyst ruptured during intercourse. She was having increased pain today. She states she still has 3 of her hydrocodone left. But she is just concerned if stress could make this worse. The pain suddenly increased tonight. She had the ultrasound because she kept having vaginal bleeding for about a month and a half. But since the ultrasound she has now stopped bleeding. No urinary symptoms. She is eating and drinking. She states no nausea and vomiting but she did not vomit a little bit here when the pain got bad. No diarrhea or problems moving bowels. [facility] Medical History Alcohol use disorder Bipolar disorder, unspecified Borderline personality disorder Cannabis use disorder, mild, abuse Generalized anxiety disorder History of Sjogren's disease Obstructive sleep apnea PTSD (post-traumatic stress disorder) Home Medications hydrocodone-acetaminophen 5-325mg 5mg-325mg 1 tab PO Q6H PRN PRN Pain 3 days #10 TABLETS 07/20/23 [Rx Last Taken Unknown] naproxen 500 mg tablet 500 mg PO BID #14 tabs 07/23/23 [Rx Last Taken Unknown] Allergy/AdvReac Type Severity Reaction Status Date / Time diphenhydramine AdvReac Other Verified 07/19/23 21:04 [From Benadryl] methylphenidate AdvReac Other Verified 07/19/23 21:04 [From Ritalin] Penicillins AdvReac Rash Verified 07/19/23 21:04 Sulfa (Sulfonamide AdvReac Rash Verified 07/19/23 21:04 Antibiotics) Social History Smoking Status: Current every day smoker tobacco type: cigarettes ROS ROS ED ROS Narrative A complete review of systems was performed and is negative except as documented in the history of present illness. Some specific details below. Constitutional: No recent fevers or chills. No malaise. EYE: No visual complaints or pain. ENT: No difficulty swallowing. No swelling. No pain. CV: No chest pain or palpitations. Respiratory: No dyspnea. No hemoptysis. No difficulty taking breaths. GI: Please see history of present illness. : No frequency dysuria or hematuria. No bleeding now. Musculoskeletal: No recent trauma. No pains. Skin: No rash. Nondiaphoretic. Neuro: No weakness or numbness. Endocrine: No polyuria or polydipsia. EXAM Physical Exam Narrative Exam Narrative: CONSTITUTIONAL: Patient is nontoxic in appearance. But she is leaning over the bed with 1 hand on the floor. When I talk to her she sits up and talks calmly. HEENT: No notable trauma. Mucous membranes moist. EYES: No conjunctival injection. No proptosis. CARDIOVASCULAR: Regular rate. Regular rhythm. No notable murmur. No JVD. RESPIRATORY: No respiratory distress. Breathing is unlabored. No wheezes. No rhonchi. No rales. No pain with a deep breath. GASTROINTESTINAL: Not distended. Bowel sounds are normal. No tenderness. No guarding. No rebound. No palpable mass. No bruit. Patient actually states he feels better when I put pressure in her left lower quadrant. She states that the only thing that helps it. GENITOURINARY: No tenderness over the bladder. No CVA tenderness. MUSCULOSKELETAL: Atraumatic. No peripheral edema. NEUROLOGICAL: Patient is alert and appropriate. No focal deficit noted. SKIN: No noted rashes. No diaphoresis. Const Vital Signs: 07/23/23 18:11 Temperature 97.2 F L Temperature Source Temporal Pulse Rate 109 H Respiratory Rate 18 Blood Pressure 141/105 H Blood Pressure Mean 117 Pulse Ox 99 Oxygen Delivery Method Room Air MDM MDM MDM Narrative Medical decision making narrative: My independent interpretation the patient's CT of the abdomen shows no acute process. No inflammatory area or mass. No free fluid or blood of any significance. Final reading does show IUD appears to be potentially within the little bit of the myometrium of the uterus. But this was seen on her recent ultrasound. I think she can follow-up with her OB if. She is already evidently contacted and been in touch with her OB since the recent ultrasound that showed this myometrial penetration. Patient CBC including white count hemoglobin and platelets are normal. Patient's electrolyte normal. Patient's serum is negative. By her history and prior ultrasounds ovarian cyst is the most likely source of her pain. She states it feels better when you press on the abdomen. She still has a few hydrocodone left. I will add nonsteroidals. She should return with worsening pain, fevers vomiting or other concerns. She should follow-up with her CORK CUTTER as supple. Lab Data Attestation: I reviewed the patient's lab results. Labs: Laboratory Results - last 24 hr 07/23/23 20:12 WBC 7.8 RBC 4.66 Hgb 13.3 Hct 41.2 MCV 88.4 MCH 28.5 MCHC 32.3 RDW Std Deviation 46.4 H RDW Coeff of Maria Esther 14.3 Plt Count 331 MPV 9.5 Immature Gran % (Auto) 1.200 H Neut % (Auto) 65.2 Lymph % (Auto) 21.1 [place] % (Auto) 9.9 Eos % (Auto) 2.2 Baso % (Auto) 0.4 Absolute Neuts (auto) 5.1 Absolute Lymphs (auto) 1.64 Nucleated RBC % 0 Sodium 137 Potassium 4.5 Chloride 107 Carbon Dioxide 29.0 Anion Gap 1 L BUN 28 H Creatinine 0.60 Est GFR (MDRD) Af Amer 152 Est GFR (MDRD) Non-Af 126 BUN/Creatinine Ratio 46.5 H Glucose 78 Calcium 8.9 Serum , Qual NEGATIVE Radiography Diagnostic Testing: Clinical Impression(s) from Imaging Studies Abdomen/Pelvis CT 07/23/23 19:54 IMPRESSION: 1. The left arm of the IUD appears to extend to the peripheral margin of the uterus suggesting myometrial penetration as suspected on comparison exam. No discrete evidence of uterine perforation. 2. Bilateral nonobstructing nephrolithiasis. Electronically Signed: Rao Bardales DO at 21:25 EST , Discharge Plan Triage Chief Complaint: Abd Pain ED Provider: Jayson Aguilar Dx/Rx/DC Orders Clinical Impression: Ovarian cyst, Abdominal pain Instructions: ED Ovarian Cyst Prescriptions: New naproxen 500 mg tablet 500 mg PO BID Qty: 14 0RF No Action hydrocodone-acetaminophen 5-325 mg tablet 1 tab PO Q6H PRN PRN (Reason: Pain) 3 Days Qty: 10 0RF Primary Care Provider: Demetria Fernandez Referrals: Demetria Fernandez MD [Primary Care Provider] - Activity Restrictions/Additional Instructions: Follow-up with your tube drawing supervisor as soon as possible. Disposition Disposition: Home, Self Care
[2023-07-23] MEDS: 0.9% Normal Saline (1000mL) 1,000 ML 1000 ML IV (20:10)
[2023-07-23] MEDS: Morphine 4 MG/ML Syringe IV (20:10)
[2023-07-23] MEDS: Ondansetron 4 MG/2 ML Vial IV (20:10)
[2023-07-23 20:18] LABS: Absolute Lymphocyte Count 1.64 X10^3/uL (0.83-4.51); Absolute Neutrophil Count 5.1 X10^3/uL (2.0-7.7); Basophil# 0.03 X10^3/uL; Basophil% 0.4 % (0-1); Eosinophil# 0.17 X10^3/uL; Eosinophils% 2.2 % (0-5); Hematocrit 41.2 % (37-47); Hemoglobin 13.3 g/dL (12.0-15.0); Lymphocyte # 1.64 X10^3/ul (0.83-4.51); Lymphocyte % 21.1 % (19-41); Mean Corp Hgb Conc 32.3 g/dL (32-36); Mean Corpuscular Hgb 28.5 pg (27.0-32.0); Mean Corpuscular Volume 88.4 fL (81-99); Mean Platelet Vol. 9.5 fl (6.2-12.0); Monocyte# 0.77 X10^3/uL; Monocyte% 9.9 % (0-10); NRBC Flagged by Analyzer 0 % (0-5); Neutrophil # 5.07 X10^3/uL (2.7-7.7); Neutrophil % 65.2 % (47-70); Platelet Count 331 K/mm3 (150-450); RBC Distribution Width CV 14.3 % (11.6-14.6); RBC Distribution Width SD 46.4 fl (35.1-43.9); Red Blood Count 4.66 M/mm3 (4.2-5.4); White Blood Count 7.8 K/mm3 (4.4-11.0)
[2023-07-23 20:42] LABS: Internal QC Validated? YES +Cl - CLEAR BKGD; Pregnancy, Serum, hCG Quali. NEGATIVE Negative
[2023-07-23 20:43] LABS: Anion Gap 1 (5-15); BUN 28 mg/dL (7-18); BUN/Creat Ratio 46.5 RATIO (10-20); Calcium,Total 8.9 mg/dL (8.5-10.1); Chloride 107 mmol/L (98-107); EST Glomerular Filtration Rate 126 mL/min (>60); Est Glom Filt Rate - Afr Amer 152 mL/min (>60); Glucose 78 mg/dL (74-106); Potassium 4.5 mmol/L (3.5-5.1); Sodium Level 137 mmol/L (136-145)
[2023-07-23] MEDS: Ketorolac 15 MG/ML Vial IV (23:13)
[2023-07-23 23:18] VITALS: BP 123/88; PULSE 78; RESP 15; O2SAT 98
== END 2023-07-23 23:19 | disposition home or self-care (01) ==
PROVIDERS: Emergency Provider Emergency Medicine; PCP Internal Medicine; Visit Provider Emergency Medicine
DX: N83.209 Unspecified ovarian cyst, unspecified side (principal); R10.32 Left lower quadrant pain; F17.210 Nicotine dependence, cigarettes, uncomplicated; G47.33 Obstructive sleep apnea (adult) (pediatric)
CPT/HCPCS: 74177; 80048; 84703; 85025; 96361; 96374; 96375; 99283; J7030; Q9967; A4216; J2405

== ENCOUNTER 2023-11-30 08:00 | Outpatient (RCR) | payer MEDICARE, MEDICAID, SELFPAY ==
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
[2023-12-02 09:28] VITALS: BP 163/90; PULSE 100
--- NOTE | 2023-12-02 10:10 | BH.SGPN.GN ---
Behaviors/Verbalizations/Mental Status: []Pt alert and oriented, casually dressed though disheveled. Eye contact good. Motor activity appropriate. Speech within normal limits. Affect congruent, mood anxious and depressed. Thoughts linear, logical, no signs of hallucinations or delusions. Client Response/Progress/Benefit: [] Pt active participant AEB pt providing input throughout group discussion. Pt attentive during psychoeducation about defense mechanisms. Showed engagement during small group discussions and helped group identify which defense mechanisms were maladaptive, adaptive, or ?somewhere in the silverman.? Pt started to work with group on identifying how each defense mechanism can impact mental health and gave examples. Pt was engaged during small group discussion and provided an example of using displacement when disagreeing with her fiance. ?Seemed to benefit from gaining awareness about the different defense mechanisms. Pt to continue IOP tx to prevent decompensation, improve daily functioning, and increase mood stability. ? Narrative Note: []
--- NOTE | 2023-12-02 11:10 | BH.SGPN.GN ---
Behaviors/Verbalizations/Mental Status: []Pt alert and oriented, disheveled appearance. Eye contact good. Motor activity appropriate. Speech within normal limits. Affect congruent, mood depressed. Thoughts linear, logical, no signs of hallucinations or delusions. Client Response/Progress/Benefit: [] Pt responded well to session, participating in activity and small group discussion. Group reviewed the rest of the defense mechanisms and discussed how these are adaptive, maladaptive, or somewhere in the silverman. Pt participated in the experiential activity which encouraged pts to draw a castle that portrayed their different defense mechanisms. Pt's defense mechanisms included anticipation, humor, self-discipline, projection, and displacement. Pt shared belief that projection and displacement are maladaptive because they cause harm to others and herself. Pt listened to pulverizer operator teach different skills to help pt?s cope with or change their defense mechanisms. Pt appeared to benefit from gaining insight to the different defense mechanisms and learning coping skills. Pt will continue IOP tx to prevent decompensation, improve distress tolerance skills, and improve daily functioning. Narrative Note: []
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
--- NOTE | 2023-12-02 12:49 | BH.DR.ITP ---
Initial Treatment Plan Patient Information Visit Information: ADMISSION DATE: EXPECTED LOS: 4-6 weeks Problems/Symptoms Problem #1:: Depression Symptom:: Sadness, worthlessness, anhedonia, decreased concentration, guilt, recent passive thoughts of Problem #2:: Anxiety Symptom:: Worry, rumination, panic attacks, hypervigilance, nightmares, flashbacks
--- NOTE | 2023-12-04 09:00 | BH.SGPN.GN ---
Behaviors/Verbalizations/Mental Status: [Patient was alert and oriented, appropriately dressed and groomed. Eye contact was good, motor activity normal, speech within normal limits. Affect congruent, mood overwhelmed. Thoughts linear, logical, no signs of hallucinations or delusions. Reviewed Patients symptom tracker and the patient reports depressed mood, anxiety/panic attacks, agitation/irritability/anger, self-harm urges, and thoughts/risk of suicide within normal limits.] Client Response/Progress/Benefit: [Patient was engaged and open to the discussion. Patient reported her mood to be ?Overwhelmed?. Patients first win is that she has created a ?growth journal? for herself that she wants to do every day for herself. Patient showed the group this journal and stated she put some prompts in it for herself and has structured it so she can make sure she grows each day. Patients second win is that she gets to see her step kids this weekend and they get to spend a whole week with her and her fianc?. Patients stressor is that she feels that her medicine is not helping her. Patient stated it helps her sleep but makes it hard to wake up. Patient was interactive and respectful with other group members about their mental wins and stressors. Patient benefited from the discussion by listening to feedback and giving input on her peer?s stressors and mental health wins. Patient will continue with IOP treatment to help develop healthy skills, promote mood stability, and improve distress tolerance. ] Narrative Note: []
--- NOTE | 2023-12-04 10:05 | BH.SGPN.GN ---
Behaviors/Verbalizations/Mental Status: [] Eye contact is good. Motor activity is appropriate. Appearance is casual. Speech is Appropriate. Mood is anxious. Affect is congruent. Thoughts are linear and logical. No evidence of psychosis. Client Response/Progress/Benefit: [] Pt receptive of session, actively engaged throughout AEB taking notes, providing input, and contributing in small group discussion. Appeared to connect with group topic of automatic thoughts and cognitive distortions and the impact of thought patterns on mental health, coping behaviors, and relationships. This particular group is very heavy on psychoeducation however pt appeared to connect with distortions and how they can impact functioning. Pt appeared to benefit from gaining insight on distorted thinking patterns and how this impacts overall mental health. Will continue IOP to prevent decompensation,, stabilize mood, and increased healthy coping skills. Narrative Note: []
--- NOTE | 2023-12-04 11:10 | BH.SGPN.GN ---
Behaviors/Verbalizations/Mental Status: []Eye contact is good. Motor activity is appropriate. Appearance is casual. Speech is WNL. Mood is euthymic. Affect is congruent. Thoughts are linear and logical. No evidence of psychosis. Client Response/Progress/Benefit: []Pt did well to remain an engaged participant AEB providing input during small group discussion and engaging in activity. Activity involved working with peers to answer questions related to psychoeducation on cognitive distortions and practicing reframing distorted thoughts. Pt collaborated with the group to determine the answers. Able to identify the impact distortions has on pt?s mental health. Connected with jumping to conclusions as most harmful distortion to her mental health. Benefited from rehearsing ways to challenge/reframe cognitive distortions and by gaining increased insight into examples/definitions of 10 most common cognitive distortions. Will continue IOP to improve daily functioning, increase consistent use of healthy coping skills, and prevent decompensation.
--- NOTE | 2023-12-04 11:45 | BH.MDN_ITS ---
Multi-Disciplinary Note Note 30-min Individual: Time Started:: 10:38 Date: 12/04/23 Purpose of session/treatment goals addressed:: To check-in with pt following first week in IOP treatment as well as address concerns with e ngagement and pt feeling disconnected in the treatment environment. Eye Contact:: Good Motor Activity:: Appropriate Appearance:: Disheveled and Casual Speech:: Appropriate Mood:: Anxious and Depressed Affect:: Congruent Thoughts:: Linear, Logical and No evidence of hallucinations/delusions noted Staff Interventions:: thought challenging, motivational interviewing, strengths perspective and goal setting Client Response:: Pt receptive of session, actively engaged throughout. Discussed her first week in the program has been ?mostly good? but she feels she is struggling to connect with fellow participants. Reports feeling she does not have as much in common with the current cohort as she did when last in the IOP program. Pt was able to provide insight that her difficulties with oversharing and interrupting may be contributing to difficulties making connections. Reflected that she struggles with silence and does not want anyone to feel left out if no one else provides input when they are sharing. Therapist normalized and highlighted pt?s desire to desire to create a supportive group environment while also aiding pt in identifying the impact of her current communication style on potentially pushing other?s away. Willing to work with therapist on improving her ability to sit with discomfort in the silence and remind herself that although she needs feedback when sharing does not mean everyone needs that type of support. Created a goal to challenge herself to count to 10 in her head before providing feedback as a means of reducing urges to impulsively fill the silence. Pt reports plans to utilize fidgets or tapping to manage anxiety while working on this goal. Risks/Concerns:: None noted as of this date 12/04/23. Progress Toward Goals/Plan:: Pt first week in IOP treatment so limited progress noted. Pt does report connecting with material discussed in groups and has been making efforts to begin incorporating more positivity in her daily life. Discussed beginning a daily gratitude journal and mood tracker. Shared continuing to struggle with managing her emotional responses to stressors, anxiety, low motivation, and difficulties with concentration. Will continue IOP tx to continue to improve mood stability, reduce irritability, and prevent decompensation. Time Stopped:: 11:02
--- NOTE | 2023-12-07 09:05 | BH.SGPN.GN ---
Behaviors/Verbalizations/Mental Status: [Patient was alert and oriented, appropriately dressed and groomed. Eye contact was good, motor activity normal, speech within normal limits. Affect congruent, mood content. Thoughts linear, logical, no signs of hallucinations or delusions. Reviewed Patients symptom tracker and the patient reports depressed mood, anxiety/panic attacks, agitation/irritability/anger, self-harm urges, and thoughts/risk of suicide within normal limits.] Client Response/Progress/Benefit: [Patient was engaged and open to the discussion. Patient reported her mood to be ?content?. Patients first win is that she woke up before everyone in her house did today. Patient shared that she is not a morning person and usually it is hard for her to wake up and needs someone else to wake her up. Patients second win is that she and her fianc? have been trying to involve his children in their MH activities. She said they had the kids state their wins and things they were grateful for together. Patients stressor was that her hot water is temporarily out. Patient was interactive and respectful with other group members about their mental wins and stressors. Patient benefited from the discussion by listening to feedback and giving input on her peer?s stressors and mental health wins. Patient will continue with IOP treatment to help develop healthy skills, promote mood stability, and improve distress tolerance. ] Narrative Note: []
--- NOTE | 2023-12-07 10:15 | BH.SGPN.GN ---
Behaviors/Verbalizations/Mental Status: [] Eye contact is good. Motor activity is appropriate. Appearance is casual. Speech is Appropriate. Mood is euthymic. Affect is full. Thoughts are linear and logical. No evidence of psychosis. Client Response/Progress/Benefit: [] Pt was engaged and open to the discussion and appeared to respond well to the group. Pt used active listening and gave feedback during group discussion and activity. Group discussed what contributes to a person?s perspective and how perspective can positively or negative impact mental health treatment. Participated in group discussion on things that can interfere with perspective which group identified as; mood, physical state, past experiences, relationships, anger, current stressors, finances, and several others. Pt appeared to benefit from increasing awareness of different perspectives and how they can affect mental health. Pt will continue IOP treatment to prevent decompensation, increase healthy coping skills, and improve daily functioning. Narrative Note: []
--- NOTE | 2023-12-07 11:15 | BH.SGPN.GN ---
Behaviors/Verbalizations/Mental Status: []Pt alert and oriented, casually dressed and groomed. Eye contact good. Motor activity appropriate. Speech within normal limits. Affect congruent, mood depressed and anxious. Thoughts linear, logical, no signs of hallucinations or delusions. Client Response/Progress/Benefit: []Pt was attentive and contributed to group discussion. Pt worked with group to identify strategies that can help with challenging negative perspective. Pt completed strengths exploration worksheet, identifying love, honesty, leadership, empathy, and creativity as personal strengths. Pt able to acknowledge how these strengths are helping pt and can continue to help pt in mental health journey. Pt identified wanting to work on applying the Delay, Distract, Decide skill. Benefited from identifying personal strengths and strategies for enhancing use of identified strengths. Pt will continue IOP tx to work on application of distress tolerance skills, improve mood stability, and prevent decompensation. Narrative Note: []
--- NOTE | 2023-12-11 10:10 | BH.SGPN.GN ---
Behaviors/Verbalizations/Mental Status: []Pt alert and oriented, casually dressed and groomed. Eye contact good. Motor activity appropriate. Speech within normal limits. Affect congruent, mood euthymic. Thoughts linear, logical, no signs of hallucinations or delusions. Client Response/Progress/Benefit: []Pt participated in group discussion. Group worked together to identify benefits of healthy relationships which included improves mental health, encouragement, motivation, accountability, validation, connection, someone to share experiences with, and support during challenges. Group identified factors that lead to unhealthy relationships which included trauma, lack of communication, and substance use. Benefited from increased insight and awareness of benefits of healthy relationships and factors that contribute to unhealthy relationships. Will continue in IOP to improve daily functioning, increase healthy coping skills, and prevent decompensation.
--- NOTE | 2023-12-11 11:10 | BH.SGPN.GN ---
Behaviors/Verbalizations/Mental Status: [] Client alert and oriented, casually dressed, dishevelled. Eye contact good. Motor activity appropriate. Speech within normal limits. Affect congruent, mood content. Thoughts linear, logical, no signs of hallucinations or delusions. Client Response/Progress/Benefit: [] Client responded well to session, engaged and taking notes throughout. Worked with group to connect components of the experiential activity with characteristics of healthy and unhealthy relationships. Attentive during psychoeducation about characteristics of healthy, unhealthy, and abusive relationships. Client stated that within the relationship with her parents she does well with respect. Client reported she would like to continue to improve with communication in healthier ways as well as reduce blaming. Appeared to benefit from identifying current healthy relationship attributes and an area client wants to work on to build healthier relationships. Client to continue IOP to increase healthy coping skills, stabilize mood, and prevent decompensation. Narrative Note: []
--- NOTE | 2023-12-11 14:23 | BH.MDN_ITS ---
Multi-Disciplinary Note Note 45-min Individual: Time Started:: 09:17 Date: 12/11/23 Purpose of session/treatment goals addressed:: To address treatment goal #1, obj # 1 and #2. Eye Contact:: Good Motor Activity:: Appropriate and Restless Appearance:: Disheveled and Casual Speech:: Appropriate Mood:: Depressed Affect:: Constricted Thoughts:: Linear, Logical and No evidence of hallucinations/delusions noted Staff Interventions:: thought challenging, motivational interviewing, psychoeducation on: (depression maintenance cycles), CBT techniques, strengths perspective and goal setting Client Response:: Pt receptive of session, openly discussed current symptoms and stressors. Shared struggling with physical health issues over the past several days and is unsure if this is medication, soreness from hiking, or her body fighting off a minor virus. Explained thoughts that it may be related to her Vivitrol, as pt discontinued use and her symptoms improved. Reports being on the medication for weight loss and plans to instead rely on diet changes with assistance from her supports for weight loss due to potential medication side effects. Does note increased negative self-talk and difficulties completing her daily hygiene routine on days pain is worse. Cited a reduction in journaling and gratitude practices as well. Receptive of discussing potential benefits of daily gratitude and positive affirmations on reduction of depressive sx and negative self-talk. Identified a plan to reflect on personal strengths and create 3-5 positive affirmations she can display in the house to encourage and support her on bad pain days. Additionally, pt able to recognize the impact neglecting her personal hygiene has on her mood, self-talk, and ability to set a healthy self- care example for her children. Disclosed she currently struggles with showering more than once a week. Identified a goal to increase from weekly to bi-weekly showers. Risks/Concerns:: None noted as of this date 12/11/23. Progress Toward Goals/Plan:: Pt second week in IOP treatment, mild progress noted. Reports following through with creating a chore responsibility system for her fiance?s children which has been helpful. Cites reduced stress and irritability as a result. Does endorse increased physical pain issues which has impacted her ability to complete ADL?s and reinforced depressive sx. Insight on the effect isolation and stagnation has had on maintaining mental health symptoms. Additional stressor of missing her period and uncertainty of , plans to test today. Improved ability to balance group contributions and refrain from oversharing or dominating group discussion. Notes use of grounding skills and counting to assist with this. Shared continuing anxiety, low motivation, and isolation, and difficulties completing ADL?s. Will continue IOP tx to continue to improve mood stability, promote use of behavior activation skills, and prevent decompensation. Time Stopped:: 10:02
== END 2023-12-13 23:59 ==
LOC: BHIOP 08:00
PROVIDERS: PCP Internal Medicine; Referring Provider Psychiatry & Neurology Psychiatry; Visit Provider Psychiatry & Neurology Psychiatry
DX: F31.9 Bipolar disorder, unspecified (principal); F60.3 Borderline personality disorder; F41.1 Generalized anxiety disorder; F43.10 Post-traumatic stress disorder, unspecified; E66.9 Obesity, unspecified; M79.7 Fibromyalgia
CPT/HCPCS: S9480; 90832; 90834; 90853

== ENCOUNTER 2023-12-14 07:15 | Outpatient (RCR) | payer MEDICARE, MEDICAID, SELFPAY ==
[2023-12-14 00:52] VITALS: BP 163/90; PULSE 100
--- NOTE | 2023-12-14 09:00 | BH.SGPN.GN ---
Behaviors/Verbalizations/Mental Status: [Patient was alert and oriented, appropriately dressed and groomed. Eye contact was good, motor activity normal, speech within normal limits. Affect congruent, mood content. Thoughts linear, logical, no signs of hallucinations or delusions. Reviewed Patients symptom tracker and the patient reports depressed mood, anxiety/panic attacks, agitation/irritability/anger, self-harm urges, and thoughts/risk of suicide within normal limits.] Client Response/Progress/Benefit: [Patient was engaged and open to the discussion. Patient reported her mood to be ?rested?. Patients first stressor is that yesterday at [facility], she was in a lot of pain but wanted to spend time with her family rather than lay down. Patients first win however is that she was able to remedy her pain and use a heating pad that was weighed to ease that pain so that she could sit out with the family. Patients second win was that she finally got to meet one of her fianc?s daughters that came from [place], and they got along well. Patient was interactive and respectful with other group members about their mental wins and stressors. Patient benefited from the discussion by listening to feedback and giving input on her peer?s stressors and mental health wins. Patient will continue with IOP treatment to help develop healthy skills, promote mood stability, and improve distress tolerance. ] Narrative Note: []
--- NOTE | 2023-12-14 10:10 | BH.SGPN.GN ---
Behaviors/Verbalizations/Mental Status: []Pt alert and oriented, casually dressed and groomed. Eye contact good. Motor activity appropriate. Speech within normal limits. Affect congruent, mood euthymic. Thoughts linear, logical, no signs of hallucinations or delusions. Client Response/Progress/Benefit: [] Pt connected with topic of anxiety and participated throughout, providing input and taking notes. Participated throughout interactive discussion defining anxiety and identifying cognitive and physiological symptoms of anxiety. Group discussed how anxiety can prevent them from trying new things. Pt identified physical signs of anxiety as increased heart rate, headache, and stomachache. Pt identified safety behaviors as self-harm, sleeping, and avoidance. Benefited from increased awareness and insight on anxiety and its impact. Pt will continue IOP tx to prevent decompensation, improve daily functioning, and increase self-care. Narrative Note: []
--- NOTE | 2023-12-14 11:15 | BH.SGPN.GN ---
Behaviors/Verbalizations/Mental Status: []Pt alert and oriented, neatly dressed and groomed. Eye contact good. Motor activity appropriate. Speech within normal limits. Affect congruent, mood euthymic. Thoughts linear, logical, no signs of hallucinations or delusions. Client Response/Progress/Benefit: [] Pt was an active participant AEB pt providing input and listening attentively to peers. Attentive during psychoeducation on mindfulness coping skills and their impact on reducing anxiety and improving overall mental health wellness. Group was able to identify self-soothing and mind-based coping skills which included: 5-senses, meditation, deep breathing, journaling, thought challenging, and progressive muscle relaxation. Pt also participated with peers in practicing mindfulness skills in session. Pt would like to work on scheduling time for self-care and color counting when anxious. Appeared to benefit from increasing repertoire of anxiety reduction skills. Pt will continue in [facility] tx to promote the use of healthy coping skills, improve daily functioning, and gain distress tolerance skills. Narrative Note: []
--- NOTE | 2023-12-16 09:47 | BH.MDN_ITS ---
Multi-Disciplinary Note Note 30-min Individual: Time Started:: 10:32 Date: 12/16/23 Purpose of session/treatment goals addressed:: To address treatment plan goal #1 obj. #1. Discussed behavior activation skills to begin improving self- care follow-through. Eye Contact:: Good Motor Activity:: Appropriate Appearance:: Disheveled and Casual Speech:: Appropriate Mood:: Anxious and Dysthymic Affect:: Congruent Thoughts:: Linear, Logical and No evidence of hallucinations/delusions noted Staff Interventions:: motivational interviewing, CBT techniques, strengths perspective and other (created a self-care plan) Client Response:: Pt receptive of session, engaged throughout. Reports she was late for group today as she relies on her fianc? to wake her up in the morning and he did not. Discussed the costs of relying on others for her time management rather than an alarm. Pt expressed frustrations with the sound of alarms, difficulties not going back to sleep after disarming her alarm, as well as sleeping through it. Receptive of reviewing strategies to improve effectiveness of an alarm, such as placing it across the room, ect. Pt went on to discuss plans to get back into physical activity as she used to have a consistent exercise routine. Shared plans to start with going to the gym with her 17 y/o step-daughter to help encourage and hold her accountable. Shared continuing to struggle with completing daily self-care responsibilities such as laundry, showering, and brushing her hair. Identified barriers to doing so as low motivation, not managing her time effectively, and prioritizing herself. Worked with therapist to identify strategies for overcoming these barriers. Pt reports plans to schedule set dates and times for showering and laundry and communicate these with her fianc? to ensure he does not ask her to drive him somewhere during those times. Plans to keep her hairbrush next to the bed to encourage her to brush before bed. Additionally, responded well to having a daily tracker for these tasks to improve accountability. Risks/Concerns:: None noted as of this date 12/16/23. Progress Toward Goals/Plan:: Progress remains variable as pt reports improved mood and reduced hopelessness, however continues to also struggle in several areas. Pt reports difficulties with medication consistency, low motivation, and difficulties completing her daily self-care routines. Pt self- reports struggling with procrastination and making excuses to not complete these activities. Receptive of developing a plan for improved accountability and follow-through. Will continue IOP tx to continue to improve mood stability, promote use of behavior activation skills, and prevent decompensation. Time Stopped:: 10:58
--- NOTE | 2023-12-16 11:20 | BH.SGPN.GN ---
Behaviors/Verbalizations/Mental Status: []Pt alert and oriented, disheveled appearance. Eye contact good. Motor activity appropriate. Speech within normal limits. Affect congruent, mood energized. Thoughts linear, logical, no signs of hallucinations or delusions. Client Response/Progress/Benefit: [] Pt was an active participant in group discussions and experiential activity. Attentive during psychoeducation on the 4 A's (Avoid, adapt, alter, accept) of coping with stress. Shared that they would benefit most from altering her approach if her original strategy does not work. Was able to identify the connection between the experiential activity and utilization of stress management skills. Benefited from increased awareness of stress management strategies. Pt will continue IOP tx to increase distress tolerance skills, improve daily functioning, and reduce use of unhealthy coping skills. ? Narrative Note: []
--- NOTE | 2023-12-16 11:30 | PCM.BH.PN ---
Progress Note Progress Note: History of Present Illness/Interim History: The patient is a 27-year-old engaged female with a history of borderline personality disorder, bipolar disorder, anxiety and PTSD who is seen in follow-up at the [facility] behavioral health IOP. I last saw the patient 2 weeks ago and at that time Trileptal was decreased to 300 mg daily and Abilify was started at 2 mg p.o. daily. The patient states that she feels that she is less depressed now than 2 weeks ago. She feels she is learning skills in the program and is starting a new meal plan for healthy eating with one of her friends in order to lose weight. She was given naltrexone she thinks to lose weight but she only took it by mouth 1 night and then discontinued it because it made her pain worse. Patient administered. Better menses then came several days ago so she is not . Patient still has some sadness but path passive thoughts of are less often now. She still denies plan for suicide, suicidal ideation, homicidal ideation, hallucinations or delusions. She denies any self-harm and her panic attacks are still occurring several times a week. She continues to have nightmares from past traumas and some hypervigilance due to her PTSD. She is tolerating the Abilify well and denies any side effects. Current Psychiatric Medications: [] Abilify 2 mg p.o. daily (x 2 weeks); Trileptal 300 mg p.o. nightly (decreased from 600 mg 2 weeks ago); prazosin 2 mg p.o. nightly Mental Status Examination: [] The patient is a 27-year-old obese engaged female who appears normal for stated age and is casually dressed and groomed with good hygiene. She has a lip piercing and scars on her neck and chest from a prior suicide attempt. She is cooperative during the interview and has no psychomotor agitation or retardation. Eye contact is good and speech is normal rate and rhythm and fluent with no pressure. Mood is anxious and depressed. Affect is full and normal. Thought process is goal-directed and organized but patient is somewhat changeable in terms of expressing her goals and perspectives. Reality testing is intact. Thought content: There is no evidence of passive thoughts of , thoughts of self-harm, homicidal ideation, suicidal ideation, plan for suicide, hallucinations or delusions. The patient is hopeful for the future. Intelligence is average. Judgment is intact. Insight is limited. Impulsivity is high. Diagnoses: [] 1. Bipolar disorder, NOS 2. Borderline personality disorder 3. Generalized anxiety disorder 4. PTSD 5. SLE, Sjogren's, obesity, fibromyalgia 6. Primary support and work/financial issues Plan: [] The patient will continue the IOP at [facility] as the structure, support, education and group therapy will hopefully prevent worsening of the patient's symptoms that could require hospitalization. She felt safe during the interview and if it anytime she does not feel safe she will let us know or go to the emergency room. The risk, options, possible complications and side effects of the medications were again discussed with the patient and she understands and accepts these. The patient agrees to increase her Abilify to 5 mg p.o. daily. 2 weeks after increasing her Abilify she will discontinue her Trileptal 300 mg daily as the patient is not using control and does not mind if she gets and Trileptal is possibly known to be teratogenic. If the patient does not respond to this regimen of medications we will consider adding Lamictal at a later date. Patient does not wish to discontinue her Zoloft as she feels that this has always helped her. She will continue to follow-up with her outpatient providers and I will see the patient in follow-up in 2 weeks.
--- NOTE | 2023-12-18 09:05 | BH.SGPN.GN ---
Behaviors/Verbalizations/Mental Status: [] Eye contact is good. Motor activity is appropriate. Appearance is casual. Speech is Appropriate. Mood is depressed. Affect is congruent. Thoughts are linear and logical. No evidence of psychosis. Reviewed daily check in sheet and no reports of suicidal ideations or intent. Client Response/Progress/Benefit: [] Pt was an active participant in group discussion. Attentive. Able to identity mental health wins and healthy habits which include future planning. Elaborated on how this was helpful for her mental health. Stressors include upcoming court issues which has led to significant amounts of uncertainly. Also reports that she did not follow through with her goals which she elaborated on with the group. The goals was meant to improve relationships in her life and decreased avoidance. She was vague regarding the obstacle to attempting her goal, however admitted to continue to avoid certain aspects of her life. Limited progress noted. Beneifted from group support, encouragment, and feedback. Will continue in IOP to prevent decompensation, stablize mood, and improve functioning. Narrative Note: []
--- NOTE | 2023-12-18 10:15 | BH.SGPN.GN ---
Behaviors/Verbalizations/Mental Status: [] Eye contact is good. Motor activity is appropriate. Appearance is casual. Speech is Appropriate. Mood is content. Affect is congruent. Thoughts are linear and logical. No evidence of psychosis. Client Response/Progress/Benefit: []Pt engaged participant AEB listening to others, engaging in activity, and providing feedback, at times struggling with oversharing. Attentive during psychoeducation and provided insight into obstacles that impede mental wellness. Pt shared with group current mental health reality and desired mental health reality. Stated she would like to get to a place where she feels more present and connected within her relationships and less overwhelmed by daily activities. Identified barriers to desired reality include: emotion regulation, poor time management, avoidance, and procrastination. Benefited from taking look at current mental health state and obstacles for progress. Pt to continue IOP tx to improve mood stability, reduce reliance on maladaptive coping, and prevent decompensation. Narrative Note: []
--- NOTE | 2023-12-18 11:15 | BH.SGPN.GN ---
Behaviors/Verbalizations/Mental Status: [] Eye contact is good. Motor activity is appropriate. Appearance is casual. Speech is Appropriate. Mood is euthymic. Affect is congruent. Thoughts are linear and logical. No evidence of psychosis Client Response/Progress/Benefit: [] Pt was an active participant in group discussion and activity. Worked with group to identify strategies to help overcome barriers and obstacles to desired reality. Group developed strategies for the common barriers. Identified personal barriers to desired reality and choose one obstacle to work. Pt stated she wants to work on barrier of negative self-talk by making a list of things she likes about herself. Pt seemed to benefit from increased repertoire of healthy coping skills/strategies to overcome common barriers to moving forward. Pt is to continue IOP to challenge negative self-talk, increase confidence, and prevent decompensation.
--- NOTE | 2023-12-23 09:00 | BH.SGPN.GN ---
Behaviors/Verbalizations/Mental Status: [Patient was alert and oriented, appropriately dressed and groomed. Eye contact was good, motor activity normal, speech within normal limits. Affect congruent, mood happy. Thoughts linear, logical, no signs of hallucinations or delusions. Reviewed Patients symptom tracker and the patient reports low to moderate in anxiety/panic attacks. Patient does not report symptoms of depressed mood, agitation/irritability/anger, self-harm urges, or thoughts/risk of suicide] Client Response/Progress/Benefit: [Patient was engaged and open to the discussion. Patient reported her mood to be ?hopeful and excited?.?Patients stressor is that she will be missing group on Thursday, but the reason is a good reason. Patient had missed group on Thursday as well and hopes she can make up days next week to compensate. Patients first win is that she is picking up her fianc??s daughter on Thursday. Patients second win is that she started a goal sheet and has exceeded the expectations of her chart. She explained that it?s a list of things to do every day like brushing her hair and showering. Patient was interactive and respectful with other group members about their mental wins and stressors. Patient benefited from the discussion by listening to feedback and giving input on her peer?s stressors and mental health wins. Patient will continue with IOP treatment to help develop healthy skills, promote mood stability, and improve distress tolerance. ?] Narrative Note: []
--- NOTE | 2023-12-23 10:05 | BH.SGPN.GN ---
Behaviors/Verbalizations/Mental Status: [] Eye contact is good. Motor activity is appropriate. Appearance is casual. Speech is Appropriate. Mood is anxious/irritable. Affect is congruent. Thoughts are linear and logical. No evidence of psychosis. Client Response/Progress/Benefit: [] Pt was actively engaged, providing input at times, and taking notes throughout session. Connected with the topic of pitfalls and listened to group discussion on internal and external barriers that prevent from choosing a healthier path to mental wellness. Group worked together to identify examples of personal internal pitfalls and pt verbalized her pitfalls. Pt benefited from group as pt learned to better identify and normalize potential barriers to improving mental health symptoms. Pt also gained awareness of the difference between external triggers and self-sabotaging behaviors. Will continue in IOP to prevent decompensation, increase healthy coping, and to improve functioing. Narrative Note: []
--- NOTE | 2023-12-23 12:44 | BH.MDN ---
Multi-Disciplinary Note Note 30-min Individual: Time Started:: 11:34 Date: 12/23/23 Purpose of session/treatment goals addressed:: To work on goal #1 of pt's tx plan, challenge relationship anxiety and thought distortions, as well began discussing discharge planning. Eye Contact:: Good Motor Activity:: Appropriate Appearance:: Casual Speech:: Appropriate Mood:: Euthymic and Anxious Affect:: Congruent Thoughts:: Linear, Logical and No evidence of hallucinations/delusions noted Staff Interventions:: thought challenging, motivational interviewing, CBT techniques, discharge planning, strengths perspective, treatment planning and reviewed DSM-5 Client Response:: Pt responded well to session, open to meeting with therapist. Pt reports she has been doing much better since beginning IOP tx 3 weeks ago. Identified areas of progress to include improved mood, increased motivation, and improved ability to manage her emotional responses to stress. Discussed following-through goals to brush her hair more consistently, do laundry at least once a week, and shower bi-weekly. Additionally noted improved engagement with her soon to be stepchildren without becoming overwhelmed or irritable. Described applying positive reinforcement and encouragement, rather than relying on threats of removing a reward, which has improved the dynamics of the household and the children?s willingness to help out. Went on to indicate looking forward to having a joint birthday constitution party with her fiance next weekend as her birthday feels like it may be more difficult due to her grandfather's passing in July. Pt explained they shared a birthday. Discussed plans to attend IOP and meet individually that day as well. Shared he biggest stressor now is related to her relationship. Pt discusses increased thoughts that her fianc? does not love her or feel attracted to her. Shared feeling he is distancing himself and has been less interested in intimacy. Pt reports that this has been triggering fears of rejection and abandonment. Receptive of discussion on the BPD relationship cycle and connected with stage 2, specifically perceived slights, or distancing of the other with limited evidence. Able to identify that it is natural for relationships to wax and wane and does not necessarily mean he is no longer interested in her. Pt reports a desire to schedule a support session to increased pt?s ability to communicate her support needs with her fianc? as well as aid him in better understanding pt?s mental health. Risks/Concerns:: Pt denies any suicidal ideations, plan, or intent as of . Progress Toward Goals/Plan:: Pt continues to report progress towards tx goals. Pt reports she is learning valuable skills in the IOP and feels she can cope with stress better since starting the IOP. Pt states that she feels more hopeful and less overwhelmed and has been enjoying her relationship with the kids more lately. However, pt continues to endorse anxiety, nightmares, variable motivation, and fear of abandonment. Pt will continue IOP tx to prevent decompensation, improve daily functioning, and increase distress tolerance skills. Time Stopped:: 12:04
--- NOTE | 2023-12-23 14:48 | BH.TPR ---
Treatment Plan Review Demographics Date of Admission:: 11/30/23 Date of Treatment Plan Review:: 12/23/23 Admitting Diagnoses:: 1. Bipolar disorder, NOS 2. Borderline personality disorder 3. Generalized anxiety disorder 4. PTSD 5. SLE, Sjogren's, obesity, fibromyalgia 6. Primary support and work/financial issues Current Diagnoses:: 1. Bipolar disorder, NOS 2. Borderline personality disorder 3. Generalized anxiety disorder 4. PTSD 5. SLE, Sjogren's, obesity, fibromyalgia 6. Primary support and work/financial issues Patient Status Patient's Response to Treatment:: Pt has responded well to session AEB consistently attending IOP and engaging in both individual and group therapy sessions. Pt consistently completes homework provided from individual counseling. Pt contributes during group discussions and has reduced urges to overshare, takes notes, appears to listen to others, and engages in group activities. Status of Current Problems and Symptoms: Pt is currently struggling most with her symptoms of anxiety and fear of abandonment. Pt reports she continues to struggle with becoming easily overwhelmed but is better managing this to prevent escalating to irritability. Pt also reports second-guessing her fianc??s commitment to their relationship. She is making progress with reduced depression, increased engagement in behavioral activation skills, goal setting, and improved emotion regulation. Progress Problem #1: Problem Name:: Depression, mood instability Status of Goals:: Objective 1- complete, with continued work encouraged. Per the DSM-5, pt?s depression has decreased by 75%. Pt reports utilizing healthy coping skills more often, is challenging herself to improve self-care, and is working on continuing to improve self talk. Pt?s irritability has reduced by 50% and she reports improved ability to managing stressors without lashing out or becoming emotionally dysregulated. Objective 2- in progress. Pt is gaining more awareness of healthy communication and conflict resolution skills. She is more active in applying problem solving skills within her relationship with her step-children, but continues to struggle with this in the relationship with her fianc?. Team Recommendations:: Team recommends continued goals and objectives to reinforce skills and maintain gains made. Problem #2: Problem Name:: Anxiety Status of Goals:: objective 1- complete with ongoing work encouraged. Pt?s DSM-5 scores for anxiety have decreased by 57% since admission and more specifically pt reports she is feeling less overwhelmingly stressed about daily life. Pt reports using opposite action and calming skills. Objective 2- in progress. Pt is increasing her distress tolerance skills through delay, distract, decide. Pt is working on improving communication to reduce avoidable anxiety. Team Recommendations:: Team recommends continued goals and objectives to reinforce skills and maintain gains made.
--- NOTE | 2023-12-24 09:05 | BH.SGPN.GN ---
Behaviors/Verbalizations/Mental Status: [] Eye contact is good. Motor activity is appropriate. Appearance is casual. Speech is Appropriate. Mood is depressed/irritable. Affect is congruent. Thoughts are linear and logical. No evidence of psychosis. Reviewed daily check in sheet and no reports of suicidal ideations or intent. Client Response/Progress/Benefit: [] Pt was an active participant in group discussion. Attentive. Daily symptom tracker notes 10/19 for anxiety. Pt was tearful stating due to a recent family event. She is concerned for a family member which has led to worry and some frustration. She reports being confused on how she can help the family member I'm just not sure what to do for him and feels powerless to help. Ruminations and uncertainty impacting her own functioning. Group provided feedback regarding the benefits of providing support vs problem solving. Pt responded well to this feedback. Notes that she is more engaged in her daily ADLs (brushing hair. showering, etc) and communicating more effectivtly with her fiance. Benefited from group support, encouragement, and feedback. Will continue in IOP to prevent decompensation, stabilize mood, and improve functioning. Narrative Note: []
--- NOTE | 2023-12-24 10:15 | BH.SGPN.GN ---
Behaviors/Verbalizations/Mental Status: []Pt alert and oriented, neatly dressed and groomed. Eye contact good. Motor activity appropriate. Speech within normal limits. Affect congruent, mood content. Thoughts linear, logical, no signs of hallucinations or delusions. Client Response/Progress/Benefit: [] Pt an active participant throughout. Participated during interactive discussion on defining conflict (internal/external) and possible benefits to conflict. Attentive during psychoeducation on conflict styles and engaged during small group activity in which peers identified the benefits and consequences to each conflict style. Pt identified their primary conflict style as accommodating type which impacts pt?s mental health and self-esteem. Pt shared she is also a competing type with herself and pt is often unforgiving and critical of herself. Benefited from increased awareness of the impact of conflict styles in mental health. Will continue in IOP tx to improve distress tolerance skills, increase self-compassion, and improve daily functioning. ? Narrative Note: []
--- NOTE | 2023-12-24 15:00 | BH.SGPN.GN ---
Behaviors/Verbalizations/Mental Status: [] Eye contact is good. Motor activity is appropriate. Appearance is casual. Speech is Appropriate. Mood is content. Affect is congruent. Thoughts are linear and logical. No evidence of psychosis. Client Response/Progress/Benefit: [] Pt was an active participant in group discussions and activity. Engaged with peers in activity and identifying healthy ways to approach each conflict scenario. Group discussed various conflict resolution skills that can be useful in addressing conflict outside of IOP. Benefited from practicing and learning conflict resolution skills during group activity. Able to identify areas pt wants to work on to improve how pt manages conflict both internally and externally. Expressed wanting to work on emotion regulation in conflict situations to reduce urges to blame or get defensive. Will continue in IOP to stabilize mood, improve self-care, and prevent decompensation. Narrative Note: []
--- NOTE | 2023-12-28 11:28 | BH.COMM ---
Communication Note Communication with Client Communication Note: Pt scheduled for IOP group on this date however did not show or call to cancel. A message was left encouraging pt to follow-up, as well as remind her of her appointments for the week.
--- NOTE | 2023-12-29 10:15 | BH.SGPN.GN ---
Behaviors/Verbalizations/Mental Status: [] Eye contact is good. Motor activity is appropriate. Appearance is casual. Speech is Appropriate. Mood is euthymic. Affect is full. Thoughts are linear and logical. No evidence of psychosis. Client Response/Progress/Benefit: [] Pt was an active participant, AEB taking notes and providing input in group discussions and activities. Attentive during psychoeducation. Pt engaged during interactive discussion in which the group defined self-care and discussed its benefits. Group discussed benefits of self-care which included; better self-esteem, increased energy, feeling refreshed, increased motivation, reduce stress, and boost mood. Pt participated in small group where they worked to identify common self-care ?myths? or obstacles. Pt identified it seems like a lot of work as an obstacle to self-care. Benefited from increased awareness of self-care, its benefits, and the consequences of not utilizing self-care strategies. Will continue IOP to prevent decompensation, increase healthy coping, and improve functioning. Narrative Note: []
--- NOTE | 2023-12-29 11:20 | BH.SGPN.GN ---
Behaviors/Verbalizations/Mental Status: []Pt alert and oriented, neatly dressed and groomed. Eye contact good. Motor activity appropriate. Speech within normal limits. Affect congruent, mood euthymic. Thoughts linear, logical, no signs of hallucinations or delusions. Client Response/Progress/Benefit: [] Pt engaged participant AEB completing self-assessment worksheet and providing input throughout discussion. Pt completed worksheet identifying current self-care practices and what self-care activities Pt wants to start using. Pt selected physical and emotional self-care to begin practicing more consistently. Pt plans to do this by focusing on meal prepping and completing an accomplishment log. Appeared to benefit from completing the self-care evaluation and gaining insights into current self-care practices, as well as identifying areas in which Pt would like to improve upon. Pt will continue IOP tx to prevent decompensation, improve daily functioning, and increase self-care practices. ? Narrative Note: []
--- NOTE | 2023-12-29 12:15 | BH.MDN_ITS ---
Multi-Disciplinary Note Note 30-min Individual: Time Started:: 09:15 Date: 12/29/23 Purpose of session/treatment goals addressed:: To address tx plan goal #1 obj #2 and goal #2 obj #2. Eye Contact:: Good Motor Activity:: Appropriate Appearance:: Disheveled and Casual Speech:: Appropriate Mood:: Euthymic and Anxious Affect:: Congruent Thoughts:: Linear, Logical and No evidence of hallucinations/delusions noted Staff Interventions:: motivational interviewing, CBT techniques, strengths perspective and taught coping skills (reviewed distress tolerance and calming skills) Client Response:: Pt responded well to session, actively engaged and wi lling to discuss current symptoms and stressors. Reports making some progress with her self-care goals of showering 2-3x a week and is brushing her hair more consistently. Pt shared that her birthday weekend was a positive experience and overall, everyone in the family got along. Described continuing to struggle with consistent emotion regulation when stressed or when her boyfriend is agitated. Provided an example over the weekend of becoming overwhelmed whiled doing an activity with their children and becoming short with them. Did well to review distress tolerance skills such as ?Delay, Distract, Decide?, walking away/changing the environment, and deep breathing. Shared that today is her actual birthday and this is often a difficult date for her as she shares it with her late grandfather. Expressed wanting to be able to ?celebrate for ?Paddy? and I today?. Pt reports making plans with a friend following IOP group to hangout until her fianc? is off work. She and he will then go to her grandfather?s grave sight to pay respects, and end the evening with dinner with her parents. Pt shared feeling confident that this plan will prevent her from becoming consumed by her grief and instead allow for her to remember and celebrate his life. Went on to discuss an additional stressor involving her father. Reports that he was placed on administrative leave by the school system he works for and this has been difficult for pt because she has been getting texts from people wanting to know why. Pt shared trying to maintain a boundary that it is not her place to share any information and would prefer not to discuss it. Identified this has been helpful but has been stressful to have to do on more than one instance. Reports trying to focus on what?s in her control and how she can manage her responses to these stressors. Risks/Concerns:: Pt denies any suicidal ideations, plan, or intent as of 12/29/23. Progress Toward Goals/Plan:: Pt continues to report progress towards tx goals. Pt is more consistently completing weekly self-care goals and indicates improved confidence and increased ability to identify her ?wins? as a result. Continues to work on healthy conflict resolution and stress management skills within her interpersonal relationships, but would benefit from ongoing work in this area. Pt reports continued difficulties with consistently managing her emotions in times of increased stress or overstimulation. Additionally, reports wanting to improve upon follow-through and ability to arrive to scheduled appointments and events on time. Pt will continue IOP tx to prevent decompensation, improve daily functioning, and improve mood stability. Time Stopped:: 09:45
--- NOTE | 2024-01-01 09:00 | BH.SGPN.GN ---
Behaviors/Verbalizations/Mental Status: []Pt alert and oriented, casually dressed and groomed. Eye contact good. Motor activity appropriate. Speech within normal limits. Affect congruent, mood euthymic. Thoughts linear, logical, no signs of hallucinations or delusions. Reviewed pt?s symptom tracker, no risk for suicidal ideation, plan, or intent 01/01/24 Client Response/Progress/Benefit: []Pt responded well to session, attentive and providing support to peers. Pt reports feeling excited this morning as pt has had a lot of positives this week and she has things to look forward to this weekend. Pt stated it was her birthday this week, her fiance's birthday, and her late grandpa's birthday. Pt stated she allowed herself to cry after my birthday, I didn't want to cry on my birthday to grieve her grandpa. Pt reflected that she is making progress because I can't even think of a stressor. Pt appeared to benefit from reflecting on her positives and application of coping skills. Pt will continue IOP tx to prevent decompensation, improve self-confidence, and increase application of healthy coping skills. Narrative Note: []
--- NOTE | 2024-01-01 10:15 | BH.SGPN.GN ---
Behaviors/Verbalizations/Mental Status: [] Eye contact is good. Motor activity is appropriate. Appearance is casual. Speech is Appropriate. Mood is euthymic. Affect is congruent. Thoughts are linear and logical. No evidence of psychosis. Client Response/Progress/Benefit: [] Client was an active participant during interactive group discussions. Attentive during psychoeducation on the six types of boundaries (physical, emotional, intellectual, sexual, time, and material) AEB by providing ongoing feedback. Along with peers contributed to interactive discussion on defining what a boundary is in mental health. Client discussed how friends and family have neglected her boundaries. Client along with peers identified challenges to setting boundaries which included; lack of self awareness, guilt, generational cycles, fear of disappointing the other person, etc. Client along with peers identified the benefits to setting boundaries such as increased identify of self, genuine relationships, self-care, and increased confidence. Group discussed the mental health benefits to establishing boundaries at work, school, and home. Client benefited from increased awareness and insight on the importance/benefit to setting health boundaries. Will continue in IOP to prevent decompensation, increase self worth, and improve functioning. Narrative Note: []
--- NOTE | 2024-01-01 11:15 | BH.SGPN.GN ---
Behaviors/Verbalizations/Mental Status: [] Eye contact is good. Motor activity is appropriate. Appearance is casual. Speech is Appropriate. Mood is euthymic. Affect is congruent. Thoughts are linear and logical. No evidence of psychosis. Client Response/Progress/Benefit: [] Client responded well to session AEB listening attentively to peers, providing some input, as well as taking notes throughout. Client contributed more throughout psychoeducation on different boundary setting styles which is progress as she has struggled to share in prior groups. Reports connecting most with porous style of boundary setting, identifying that they fear rejection and will rely a lot on others. Participated in group discussion brainstorming various strategies for improving healthy boundary settings, as a group identified practicing in a mirror, starting with easy/small boundaries, and not overly apologizing as strategies to try. Seemed to benefit from increased awareness of how different boundary styles can impact mental health. Will continue IOP tx to increase consistent application of skills and increase overall functioning. Narrative Note: []
--- NOTE | 2024-01-05 10:05 | BH.SGPN.GN ---
Behaviors/Verbalizations/Mental Status: []Pt alert and oriented, casually dressed and groomed. Eye contact good. Motor activity appropriate. Speech within normal limits. Affect congruent, mood anxious and dysthymic. Thoughts linear, logical, no signs of hallucinations or delusions. Client Response/Progress/Benefit: []Pt was an active participant in group discussion and activity. Attentive during psychoeducation. Along with peers, pt was able to identify barriers to taking action in their life. Identified several symptoms and stressors that pt feels are holding them back from progress such as negative self-talk, lack of care of her physical health, procrastination, and irritability. Stated these things have kept pt from making healthy changes, being kinder to herself, improving relationships, and led to increased excuses. Pt shared wanting to begin addressing the impact irritability has had on their ability to take action. Benefited from increased self-awareness of obstacles. Will continue IOP tx to improve mood management, promote consistent skill application, and further improve self-care consistency. Narrative Note: []
--- NOTE | 2024-01-05 11:10 | BH.SGPN.GN ---
Behaviors/Verbalizations/Mental Status: []Pt alert and oriented, neatly dressed and groomed. Eye contact good. Motor activity appropriate. Speech within normal limits. Affect congruent, mood euthymic. Thoughts linear, logical, no signs of hallucinations or delusions. Client Response/Progress/Benefit: [] Pt responded well to session, taking notes and participating in worksheet discussion. Pt connected with the discussion on motion vs action steps, and this helped pt learn how to set goals differently. Pt set a goal to improve her physical health. Pt identified motion steps including: looking up PCPs, looking up at home exercises, and looking up recipes to cook. Pt also made action steps which include: making a PCP appointment, starting with two minutes of exercise, and cooking the recipes. Appeared to benefit from identifying a small goal to benefit mental health. Will continue IOP tx to promote gains, reduce negative thinking patterns, and increase distress tolerance skills. ?? Narrative Note: []
--- NOTE | 2024-01-05 14:44 | BH.MDN_ITS ---
Multi-Disciplinary Note Note 45-min Individual: Time Started:: 09:07 Date: 01/05/24 Purpose of session/treatment goals addressed:: Purpose of session was to aid pt in processing and coping with recent stressor impacting mental heal and tx progress. Eye Contact:: Good (tearful throughout) Motor Activity:: Appropriate Appearance:: Disheveled and Casual Speech:: Pressured Mood:: Anxious, Irritable and Depressed Affect:: Congruent Thoughts:: Linear, Logical and No evidence of hallucinations/delusions noted Staff Interventions:: thought challenging, motivational interviewing, CBT techniques, discharge planning, strengths perspective and goal setting Client Response:: Pt receptive of meeting with therapist, discussed current stressors impacting her mood and reinforcing anxiety and frustration levels today. Reports she had court yesterday and struggled with regulating her emotions throughout, stating ?I had a breakdown at court?. Went on to explain that the employee benefits attorney presented pt with a plea deal of 3 years on probation, which pt felt was excessive. Shared that she had hoped the charges would be dismissed and was caught off guard when they were not. Expressed frustration with her public safety director for the limited communication they have had and indicated plans to hire her own employee benefits attorney and take the case to trial. Pt often struggles with taking accountability for her actions that have resulted in legal action or impacted her relationships in the past. Focused much of the session on feeling attacked by the legal system and viewed as a ?horrible person?. Expressed struggling with negative self-talk and crying spells the remainder of the day following court. Shared her fianc? was supportive in calming her down but often does not know what to say when she continues to ruminate. Pt provided insight that the experience has highlighted the severity of her fear of abandonment issues and believes that is what resulted in her having as many animals as she did at the time she was charged. Reports wanting to work on this so it does not continue to create issues for her moving forward and she is able to feel more comfortable and confident within her relationships. Pt indicated getting back into doing things she enjoys would help to improve self-confidence and reduce amount of time spent fixating on whether her current relationships are invested and truly care for her. Identified goals to get back into playing video games, watching anime, and spending time outdoors. Risks/Concerns:: Pt denies any suicidal ideations, plan, or intent as of 01/05/24. Progress Toward Goals/Plan:: Progress variable. Pt reports increased agitation, anxiety, and negative self-talk following court yesterday, resulting in an emotional outburst at the courthouse. Reports crying spells throughout the evening as well. However, pt did reach out to her supports, take time to practice self-care and self-compassion after challenging negative thoughts, as well as begin to focus on what is in her control. Pt is showing increased progress in her ability to manage setbacks and unexpected stressors as opposed to several weeks ago. She continues to struggle with tardiness in treatment but is otherwise engaging well and receptive to trying to apply skills she learns outside the treatment environment. Pt continues to reports ongoing issues with consistent emotion regulation, effective communication, and conflict resolution skills though is improving in these areas. Pt recommended continued IOP tx as she processes court, as well as promote mood stability and continue to encourage regular skill application. Time Stopped:: 09:53
--- NOTE | 2024-01-06 09:00 | BH.SGPN.GN ---
Behaviors/Verbalizations/Mental Status: [] Pt alert and oriented, casually dressed and groomed. Eye contact good. Motor activity appropriate. Speech within normal limits. Affect congruent, mood worried. Thoughts linear, logical, no signs of hallucinations or delusions. Reviewed pt?s symptom tracker, no risk for suicidal ideation, plan, or intent 01/06/24 Client Response/Progress/Benefit: []Pt responded well to session, attentive and listening to peers. Pt reports feeling worried this morning, but pt is not sure why. Pt has ongoing stressors, but she stated she is trying to not feed into them. Pt worked on her goals yesterday by getting recipes from her mom and practicing positive self-talk when pt forgot something. Pt reports she is anxious about next week being her last week, but pt received feedback from group to help pt remind herself that she has applied a lot of coping skills. Pt appeared to benefit from reflecting on her application of coping skills and peer feedback. Pt will continue IOP tx to promote mood stability, increase distress tolerance, and improve self-confidence. Narrative Note: []
--- NOTE | 2024-01-06 10:10 | BH.SGPN.GN ---
Behaviors/Verbalizations/Mental Status: [] Eye contact is good. Motor activity is appropriate. Appearance is casual. Speech is Appropriate. Mood is euthymic. Affect is full. Thoughts are linear and logical. No evidence of psychosis. Client Response/Progress/Benefit: [] Client responded well to session AEB sharing and listening attentively to others. Group identified types of social support (family, pets, professionals, spiritual, etc) and provided examples of benefits of having social support, including: decreased stress, increased self-esteem, encouragement, distraction, etc. Client also participated in group discussion regarding the barriers to accessing support such as: lack of awareness, lack of trust, and low self-esteem. Client participated in experiential activity illustrating the impact communication, boundaries, and patience play in creating healthy support systems. Client appeared to benefit from increased knowledge of the benefits of social support and greater self-awareness. Will continue IOP to prevent decompensation, stabilize mood, and increase healthy coping strategies. Narrative Note: []
--- NOTE | 2024-01-06 10:21 | BH.COMM ---
Communication Note Communication with Client Communication Note: Met with client at this time to discuss medications (starting 5mg Abilify after it was ordered for her by Dr. Strange 12/16/23 and weaning off the Trileptal). Client states she never started the 5mg Abilify tabs and hasn't been compliant with any of her medications in the last month. Discussed with client importance of trying Abilify dose while she is still in IOP. Client states she stopped medications because it was too hard keeping track of them because some of them aren't in my bubble packs and client states she thinks medications were contributing to her body aches every evening. Client states she has still had body aches in the evenings even without any medications. Client states she is going to call her pharmacy to get a new bubble pack to include all of her current medications within the next week. Discussed plan with client for her to not restart the Trileptal, but to start the Abilify 5mg now. Client voiced agreement.
--- NOTE | 2024-01-06 11:10 | BH.SGPN.GN ---
Behaviors/Verbalizations/Mental Status: [] Client alert and oriented, casually dressed and groomed. Eye contact good. Motor activity appropriate. Speech within normal limits. Affect congruent, mood content. Thoughts linear, logical, no signs of hallucinations or delusions. Client Response/Progress/Benefit: [] Client was an active participant throughout AEB contributing to discussion, providing personal examples, and taking notes. Client processed emotions felt in the activity and how they coped in the moment. Client provided input during discussion on the types of support our supports can provide. Client able to identify current support system and barriers that get in the way of using supports by drawing out their own support net. Client reported after identifying what type of supports they receive; they gained awareness that they could benefit from more informational supports. Client identified steps to achieve this by challenging herself to ask for help with creating a physical health and exercise/nutrition plan from her friend. Client shared increasing informational supports will help them become more more confident and kinder to herself. Client seemed to benefit from identifying the type of support client needs to work on improving. Client recommended to continue IOP tx to promote continued application distress tolerance skills and increase emotional regulation skills. Narrative Note: []
== END 2024-01-12 23:59 ==
LOC: BHIOP 07:15
PROVIDERS: PCP Internal Medicine; Referring Provider Psychiatry & Neurology Psychiatry; Visit Provider Psychiatry & Neurology Psychiatry
DX: F31.9 Bipolar disorder, unspecified (principal); F60.3 Borderline personality disorder; F41.1 Generalized anxiety disorder; F43.10 Post-traumatic stress disorder, unspecified; M32.9 Systemic lupus erythematosus, unspecified; M35.00 Sjogren syndrome, unspecified; E66.9 Obesity, unspecified; M79.7 Fibromyalgia; Z79.899 Other long term (current) drug therapy
CPT/HCPCS: S9480; 90832; 90834; 90853

== ENCOUNTER 2024-01-13 06:32 | Outpatient (RCR) | payer MEDICARE, MEDICAID, SELFPAY ==
[2024-01-13 00:52] VITALS: BP 163/90; PULSE 100
--- NOTE | 2024-01-13 09:01 | BH.SGPN.GN ---
Behaviors/Verbalizations/Mental Status: [] Eye contact is good. Motor activity is appropriate. Appearance is casual. Speech is Appropriate. Mood anxious. Affect is congruent. Thoughts are linear and logical. No evidence of psychosis. Reviewed daily check in sheet and suicidal ideation, plan, or intention. Client Response/Progress/Benefit: [] Pt was an active participant in group discussions. Attentive. Patient reported feeling tired and spacey this morning and easily distracted. Patient stated her stressor is feeling more dissociated and not like herself this morning. Patient cannot identify any specific trigger as to why she is feeling this way but just woke up not feeling quite like herself. Patient reported mental positive was having a really great weekend with her fianc? in which they had a alliance party with friends that went really well. Client stated additionally she was able to be productive with getting tasks and chores done while at home. Benefited from group support, encouragement, feedback. Will continue in IOP to promote utilization of healthy coping skills, improve view of self, and prevent decompensation.
--- NOTE | 2024-01-13 10:10 | BH.SGPN.GN ---
Behaviors/Verbalizations/Mental Status: []Pt alert and oriented, appropriate grooming/appearance. Eye contact good. Motor activity appropriate. Speech within normal limits. Affect congruent, mood anxious and dysthymic. Thoughts linear, logical, no signs of hallucinations or delusions. Client Response/Progress/Benefit: []Pt was an active participant in group discussions. Attentive during psychoeducation. Contributed during interactive discussions in which peers attempted to define crisis. Pt identified examples of potential crisis. Group also worked together to identify unhealthy responses to crisis which included; isolation, self-harm, substance abuse, avoidance, and distraction. Pt identified personal warning signs as increased questioning of things/people. reassurance seeking, and passive-aggressive communication. Benefited from increased understanding of crisis and awareness of personal responses to crisis. Pt will continue IOP tx to improve mood stability, promote healthy coping, and prevent decompensation. Narrative Note: []
--- NOTE | 2024-01-13 11:10 | BH.SGPN.GN ---
Behaviors/Verbalizations/Mental Status: []Eye contact is good. Motor activity is appropriate. Appearance is casual. Speech is Appropriate. Mood is content. Affect is congruent. Thoughts are linear and logical. No evidence of psychosis. Client Response/Progress/Benefit: [] Pt was an active participant in group discussions. Attentive during psychoeducation. In small group pt along with peers developed an active plan for their crisis warning signs. Pt identified three crisis warning signs as well as an action plan for each. One crisis warning sign was increased reassurance seeking. Pt identified coping skills to help with this such as: using distractions, reading affirmations, reading prewritten reminders from supports. Benefited from increased awareness of crisis warning signs and by developing crisis intervention strategies. Will continue in IOP to prevent decompensation, increase distress tolerance, and maintain mood stability. ??? Narrative Note: []
--- NOTE | 2024-01-13 12:06 | PCM.BH.PN_ITS ---
Progress Note Progress Note: History of Present Illness/Interim History: The patient is a 28-year-old engaged female with a history of borderline personality disorder, bipolar disorder NOS, anxiety and PTSD who is seen in follow-up at the [facility] behavioral [facility]. I last saw the patient 1 month ago and at that time I increased her Abilify to 5 mg and we decrease her Trileptal as she was trying to get and it has teratogenic risk. The patient states that she discontinued all her medication within a few days of seeing me 1 month ago and states that it she did this because the bubble packs the meds, and worn all in place or something. However she did not ask for any help with this. She has been consistent and engaged in the groups according to staff and has made some progress in learning skills. She feels she is doing all right emotionally. She denies any thoughts of self-harm or actions of self-harm. Panic attacks happen about once a week now. She denies any passive thoughts of , plan for suicide, suicidal ideation, homicidal ideation, hallucinations or delusions. Current Psychiatric Medications: [] Patient discontinued Abilify, Trileptal, Zoloft and prazosin 1 month ago. Mental Status Examination: [] The patient is a 28-year-old obese female who is casually dressed and groomed with good hygiene and appears normal for stated age. She has a lip piercing and scars on her neck and chest from a prior suicide attempt. She is cooperative and pleasant during the interview and has no psychomotor agitation or retardation. Eye contact is good and speech is normal rate and rhythm and fluent with no pressure. Mood is relatively euthymic according to patient. Affect is full and normal. Thought process is organized and goal-directed. Thought content: The patient is hopeful for the future. There is no evidence of passive thoughts of , thoughts of self- harm, homicidal ideation, suicidal ideation, plan for suicide, hallucinations, delusions or symptoms of adarsh. Judgment is intact. Insight is limited. Impulsivity is high. Diagnoses: [] 1. Bipolar disorder, NOS 2. Borderline personality disorder 3. Generalized anxiety disorder 4. PTSD 5. SLE, Sjogren's, obesity, fibromyalgia Plan: [] The patient's plan is to discharge from the IOP in several days if she has made some progress and has been noncompliant with medication. She felt safe during the interview and if it anytime she does not feel safe she agrees to let us know or go to the emergency room. She states that she may restart her medications soon but she is uncertain as she feels she is doing okay without them. Discussion was had with the patient to not restart the Trileptal at it as it could have teratogenic risk. She may restart her prazosin, Zoloft or Abilify under the supervision of her next outpatient provider if she wishes. She will continue to follow-up with her outpatient providers medical and psychiatric.
--- NOTE | 2024-01-15 09:00 | BH.SGPN.GN ---
Behaviors/Verbalizations/Mental Status: [] Eye contact good. Motor activity appropriate. Speech within normal limits. Affect congruent, mood agitated and content. Thoughts linear, logical, no signs of hallucinations or delusions. Reviewed client?s symptom tracker, denies SI, plan, or intent as of 01/15/2024. Client Response/Progress/Benefit: [] Client receptive of session, attentive and willing to process with group. Identified mental health ?wins? today as not engaging in self-harm urges when upset after a disagreement with her fiance. Reports wanting to initially escalate the argument and fall into unhealthy means of coping, but instead did well to use calming skills and focus on the moment rather than allow things to escalate. Reports in the past she would not have. Additional win noted as looking up recipes and beginning meal prep which has been an ongoing goal for her. Current stressor is upcoming discharge and being able to maintain gains afterwards. Did well to identify several skills she can utilize to continue to maintain mood stability. Recommended continued outpatient tx following IOP d/c to continue to promote mood stability, as well as consistent skill application, and prevent decompensation. Narrative Note: []
--- NOTE | 2024-01-15 11:15 | BH.SGPN.GN ---
Behaviors/Verbalizations/Mental Status: []Client alert and oriented, casually dressed and groomed. Eye contact good. Motor activity appropriate. Speech within normal limits. Affect congruent, mood euthymic. Thoughts linear, logical, no signs of hallucinations or delusions. Client Response/Progress/Benefit:?[] Client engaged participant AEB participating in the activity, providing input during small group discussion, and listening attentively to others. Client appeared to connect with discussion in the benefits of addressing mental health stigma which included: improved relationships, increased willingness to seek help, increased happiness, and improved confidence. Group brainstormed strategies to combat social and perceived stigma. ?Client shared one thing she can personally do to combat stigma is to improve positivity and embracing gratitude. Appeared to benefit from increasing awareness of strategies to combat stigma. Will continue IOP tx to improve mood stability, continue use of healthy coping skills, and prevent decompensation.
--- NOTE | 2024-01-15 14:34 | BH.MDN ---
Multi-Disciplinary Note Note 30-min Individual: Time Started:: 10:40 Date: 01/15/24 Purpose of session/treatment goals addressed:: To address current stressors and discuss strategies to help cope with these stressors. Another goal was to discuss discharge and aftercare. Eye Contact:: Good Motor Activity:: Appropriate Appearance:: Casual Speech:: Appropriate Mood:: Anxious and Irritable Affect:: Congruent Thoughts:: Linear, Logical and No evidence of hallucinations/delusions noted Staff Interventions:: thought challenging, CBT techniques, discharge planning and reviewed DSM-5 Client Response:: Pt responded well to session, open to meeting with therapist. Pt shared she feels a little anxious about leaving IOP, but she knows she has outpatient counseling and will be doing the Aftercare Program. Pt shared that she had a good day but difficult day yesterday, describing several positives from her morning such as meal prepping, spending time with a support, and made plans with a friend. Pt explained that her day took a turn when her fianc? asked her for a ride and got upset when pt told him ?no?. Reports he verbally lashed out and attempted to guilt pt by making statements about pt not working of being the one who pays the bills. Pt described becoming upset but did not further engage in the conversation and instead ended the call. Reports struggling with feeling responsible to go out of her way to do things for him because she is not the primary breadwinner; however, did well to challenge this and identify the difference being supportive and taken advantage of by allowing his needs to always be prioritized over hers. Reviewed the importance of healthy boundaries and communicating scheduling needs prior to the day of to reduce unnecessary conflict. Did identify coping in healthier ways with the argument than she would have several weeks ago. Pt shared overall she is doing much better than she was when she started IOP. Pt reflected on some gains including being more open with her fiance about her triggers, self-care needs, and boundaries. Pt also reported feeling proud of herself for how she has been more consistent with self-care activities. Pt understands that she will have to continue to work on these areas and is recommended couple?s counseling. Pt shared she feels more optimistic, less anxious, and able to function more like herself. Risks/Concerns:: No SI or thoughts of reported. Progress Toward Goals/Plan:: Pt will discharge from IOP tx today as pt has accomplished her tx goals and no longer meets criteria for IOP level of care. Pt's overall scores have decreased by 60% since admission and pt reports ability to manage emotions and stressors more effectively. Pt will follow up with Seth leslie [facility] for outpatient counseling to promote gains. Time Stopped:: 11:05
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
--- NOTE | 2024-01-15 14:57 | BH.IGGP_ITS ---
Aftercare Plan Demographics Treatment End Date:: 01/15/24 Psychiatrist:: Coni Hendricks Psychiatrist Office #:: [phone] [facility] Therapist:: Cecelia Nazario Therapist Phone #:: [phone] Medications Home Medications sertraline 50 mg tablet (Zoloft) 50 mg PO DAILY 12/02/23 oxcarbazepine 300 mg tablet (Trileptal) 300 mg PO QHS 12/09/23 prazosin 2 mg capsule (Minipress) 2 mg PO QHS 12/09/23 aripiprazole 5 mg tablet (Abilify) 5 mg PO DAILY 30 days #30 tabs 12/16/23 Plan Details Progress/Aftercare Plan Details:: Pt has responded well to treatment as evidenced by Pt consistently attending IOP sessions and her reduction of DSM-5 scores since admission. Pt was always attentive and receptive to learning during group and individual sessions. Pt actively applied coping skills outside of [facility] and reports overall her mood is improved and she is functioning better than she was several months ago. Pt?s overall symptom reduction is 60% since admission with anger decreasing by 100%, depression decreasing by 75%, and anxiety decreasing by 57%. Pt has increased self-care, boundaries, and faced many hard things. Most importantly, Pt has become more capable of communicating in healthy ways and increased understanding of right to self-advocacy and boundaries. Strategies for Success:: 1. Opposite action! Continue to break that cycle of anxiety, guilt, and depression by not letting emotions be the only drivers of your bus. 2. Remember that thoughts are thoughts NOT facts! You have power if you give thoughts the time of day or not. 3. self-care! You deserve to take time for you and you also deserve to face the not so fun self-care like setting boundaries and advocating for your needs 4. Self-compassion! You are human and you will make a mistake?BUT that doesn?t mean you are a failure or not good enough. 5. Practice positive self-talk and keep track of your wins. 6. self- reflection and self-awareness. Appointments Appointments/Referrals to Other Services:: Pt will be seeing Seth [facility] for individual counseling. Pt would like to participate in the [facility] aftercare group, and will begin this on 01/21/24.
== END 2024-01-15 13:49 | disposition home or self-care (01) ==
LOC: BHIOP 06:32
PROVIDERS: PCP Internal Medicine; Referring Provider Psychiatry & Neurology Psychiatry; Visit Provider Psychiatry & Neurology Psychiatry
DX: F31.9 Bipolar disorder, unspecified (principal); F60.3 Borderline personality disorder; F41.1 Generalized anxiety disorder; F43.10 Post-traumatic stress disorder, unspecified; M32.9 Systemic lupus erythematosus, unspecified; M35.00 Sjogren syndrome, unspecified; E66.9 Obesity, unspecified; M79.7 Fibromyalgia; E03.9 Hypothyroidism, unspecified; Z79.899 Other long term (current) drug therapy
CPT/HCPCS: S9480; 90832; 90853

== ENCOUNTER 2024-01-21 10:03 | Outpatient (RCR) | payer MEDICARE, MEDICAID, SELFPAY ==
--- NOTE | 2024-01-21 14:00 | BH.SGPN.GN ---
Behaviors/Verbalizations/Mental Status: []Pt alert and oriented, casually dressed and groomed. Eye contact good. Motor activity appropriate. Speech within normal limits. Affect congruent, mood euthymic. Thoughts linear, logical, no signs of hallucinations or delusions. Client Response/Progress/Benefit: []Client stated she doesn't have an appointment with her outpatient counselor yet, but has plans to call and schedule an appointment this week. Client reported she is no taking medications for her mental health at this time but has a psych appointment scheduled if feeling she needs to. Client stated she has been using thought challenging, gratitude, and being physically active as skills to manage stressors throughout the week. Client attentive to psychoeducation about gratitude and provided contributions throughout. Along with group was able to identify benefit of gratitude, as well as various ways to practice both internalized and externalized gratitude. Client created gratitude plan for the week which included gratitude for: her body's abilities, a song she likes, supports, and her environment. Pt to continue IOP to maintain gains, challenge distortions, and prevent decompensation. Narrative Note: []
--- NOTE | 2024-01-21 14:19 | BH.COMM ---
Communication Note Communication with Client Communication Note: Patient completed IOP and presents today to start relapse prevention group which meets once weekly (1.5 hours) for 8 weeks. Case discussed with Dr. Strange with plan to admit with dx of F31.9
--- NOTE | 2024-01-21 15:21 | BH.MTP ---
Master Treatment Plan Patient Information Program Physician:: Dr. Coni Strange Primary Therapist:: REA Poe Psychiatric Diagnoses Psychiatric Diagnoses:: 1. Bipolar disorder, NOS 2. Borderline personality disorder 3. Generalized anxiety disorder 4. PTSD 5. SLE, Sjogren's, obesity, fibromyalgia Diagnosis Code(s):: F31.9 Estimated LOS Estimated LOS (in weeks):: 8 Problem/Goal #1 Problem/Goal #1 Stated Goal:: client will maintain or see a reduction in symptoms AEB client score on the DSM 5 cross-cutting measure and improve client's daily functioning. Objectives Objective #1: Stated Objective: Client will continue to consistently apply healthy coping skills to maintain progress made in IOP tx. Interventions: Through group therapy, client will review warning signs and triggers as well as healthy coping skills learned in IOP tx to successfully maintain gains while transitioning into outpatient therapy. Discharge Criteria: Client will have accomplished this goal when client's score on the DSM-5 cross-cutting measure has maintained or reduced over a 8 week period. Target Date: 03/17/24 Review Date: 02/18/24 Objective #2: Stated Objective: Client will learn and utilize 2-3 maintenance strategies to prevent decompensation from original IOP DSM-5 scores. Interventions: Through group therapy, client will be provided with education on healthy maintenance behaviors, relapse prevention techniques, and healthy coping strategies. Discharge Criteria: Client will have accomplished this goal when can report using at least 2 maintenance skills to prevent decompensation compared to original IOP DSM-5 scores. Target Date: 03/17/24 Review Date: 02/18/24
--- NOTE | 2024-01-28 14:00 | BH.SGPN.GN ---
Behaviors/Verbalizations/Mental Status: []Pt alert and oriented, casually dressed. Eye contact good. Motor activity appropriate. Speech within normal limits. Affect congruent, mood stressed. Thoughts linear, logical, no signs of hallucinations or delusions. Client Response/Progress/Benefit: [] Pt receptive of session, engaged and providing supportive feedback throughout group. Pt reports being consistent with counseling but she is not taking any medications at this time. Pt reports she has had a ?very stressful week.? Pt felt she did not use any coping skills, but pt did use opposite action and goal setting. Pt engaged in the discussion about self-love and participated in the experiential activity that highlighted the acceptance component of self-love. Reports wanting to work on self-love, but pt shared it will be hard for her and was tearful. Pt responded well to discussion of self-acceptance and ?no bad parts.? Seemed to benefit from reviewing treatment progress and strategies for managing current stressors, as well as learning about how to increase self-love. Pt to continue IOP aftercare tx to promote mood stability, reinforce gains made in IOP, and review coping skills from IOP. Narrative Note: []
--- NOTE | 2024-02-11 08:51 | BH.TPR ---
Treatment Plan Review Demographics Date of Admission:: 01/21/24 Date of Treatment Plan Review:: 02/11/24 Admitting Diagnoses:: 1. Bipolar disorder, NOS 2. Borderline personality disorder 3. Generalized anxiety disorder 4. PTSD 5. SLE, Sjogren's, obesity, fibromyalgia Current Diagnoses:: 1. Bipolar disorder, NOS 2. Borderline personality disorder 3. Generalized anxiety disorder 4. PTSD 5. SLE, Sjogren's, obesity, fibromyalgia Patient Status Patient's Response to Treatment:: Pt continues to respond well to treatment AEB pt's consistent attendance, ongoing attentiveness and engagement in group discussions, and continued reporting use of skills outside treatment environment. Pt's symptoms are still 69% lower than they were at IOP admission. Status of Current Problems and Symptoms: Pt is reporting continued improvement with her mental health via ability to manage emotions, challenging negative thoughts, and improved communication and boundaries. Pt reports mild anxious and depressive symptoms currently. Pt's biggest stressors are connected to interpersonal relationships. Progress Problem #1: Problem Name:: Pt will maintain or see a reduction in sx Status of Goals:: Obj 1 - complete with ongoing work encouraged. Pt's DSM 5 scores for anger are 75% lower than they were at IOP admission and anxiety is 83% lower compared to IOP admission. Pt's depression scores have decreased by 88%. Obj 2 - complete with ongoing work encouraged. Pt had been reporting using opposite action, focusing on getting at least one task done even on rough days, acceptance, and communicating with supports. Team Recommendations:: Recommended pt continue IOP aftercare group in addition to attending regular outpatient counseling in order to maintain gains.
--- NOTE | 2024-02-11 14:00 | BH.SGPN.GN ---
Behaviors/Verbalizations/Mental Status: []Client alert and oriented, casually dressed and groomed. Eye contact good. Motor activity appropriate. Speech within normal limits. Affect congruent, mood depressed. Thoughts linear, logical, no signs of hallucinations or delusions. Client Response/Progress/Benefit: [] Receptive of session, engaged throughout. Pt reports she has been seeing her therapist and taking her medications for nightmares. Pt stated she had a self-harm relapse recently, so she is trying to not beat herself up over it by reaching out to support. Pt stated she is not getting the support she needs from her outpatient therapist and the group offered her ideas. Engaged and attentive during discussion of vulnerability and benefits of practicing vulnerability. Group discussed ways we avoid feeling vulnerable and how this negatively affects mental health and relationships. Pt identified ?dress rehearsing tragedy? as a way she avoids being vulnerable. Pt was not sure how to work on being more vulnerable, because pt feels like I need to do so much. Pt encouraged to talk to her therapist about this. Appeared to benefit from group support and discussion reflecting on the positive impact vulnerability can have on mental health. Pt will continue with aftercare tx to maintain gains and prevent decompensation. Pt also encouraged to discuss goals with outpatient therapist. Narrative Note: []
--- NOTE | 2024-03-10 08:57 | BH.DS ---
Discharge Summary Demographics Date of Admission:: 01/21/24 Discharge Date: 03/10/24 Presenting Problems at Admission:: Pt presenting to aftercare having made progress in management of anxiety and depression. Reports improved communication and self-care. However, continues to struggle with interpersonal relationship stress, difficulties effectively communicating her needs, and finances. Discharge Diagnoses:: 1. Bipolar disorder, NOS 2. Borderline personality disorder 3. Generalized anxiety disorder 4. PTSD 5. SLE, Sjogren's, obesity, fibromyalgia Reason for Discharge:: Client has continued to show maintenance of progress since starting aftercare and is ready to step down to once a week counseling with his individual counselor. Treatment Progress During Treatment & Response: Pt did well with attendance and remained active in engagement. Pt contributed well during group discussions, often providing insight and supportive feedback. Pt was able to see a reduction of overall sx from IOP admission to aftercare discharge of 77%, with 75% reduction in irritability, 87.5% reduction in depression, and 71% reduction in sx of anxiety. Pt reports improved ability to recognize mood shifts, focusing on maintaining better boundaries, and improvement with communication. Issues Still to be Addressed:: Client could benefit from continuing working on conflict resolution skills, and improving emotion regulation. Discharge Recommendations/Instructions:: Will continue with regularly scheduled appointments with outpatient providers for medication management as well. Discharge Handout
--- NOTE | 2024-03-10 09:03 | BH.DS ---
Discharge Summary Demographics Date of Admission:: 01/21/24 Discharge Date: 03/10/24 Presenting Problems at Admission:: Pt successfully completed the [facility] tx program and at time of admission had been struggling with depression, self-doubt, parenting stress, and difficulties regulating her emotions. She has made progress in these areas and would benefit from aftercare treatment to continue to maintain gains, improve consistency of skill application, and prevent decompensation. Discharge Diagnoses:: 1. Bipolar disorder, NOS 2. Borderline personality disorder 3. Generalized anxiety disorder 4. PTSD 5. SLE, Sjogren's, obesity, fibromyalgia Reason for Discharge:: Client has continued to show maintenance of progress since starting aftercare and is ready to step down to once a week counseling with his individual counselor. Treatment Progress During Treatment & Response: Pt did well with attendance and remained active in engagement. Pt contributed well during group discussions, often providing insight and supportive feedback. Pt was able to see a reduction of overall sx from IOP admission to aftercare discharge of 77%, with 75% reduction in irritability, 87.5% reduction in depression, and 71% reduction in sx of anxiety. Pt reports improved ability to recognize mood shifts, focusing on maintaining better boundaries, and improvement with communication. Issues Still to be Addressed:: Client could benefit from continuing working on conflict resolution skills, and improving emotion regulation. Discharge Recommendations/Instructions:: Will continue with regularly scheduled appointments with outpatient providers for medication management as well. Discharge Handout
== END 2024-02-12 23:59 ==
LOC: BHOG 10:03
PROVIDERS: PCP Internal Medicine; Referring Provider Psychiatry & Neurology Psychiatry; Visit Provider Psychiatry & Neurology Psychiatry
DX: F31.9 Bipolar disorder, unspecified (principal); F60.3 Borderline personality disorder; F41.1 Generalized anxiety disorder; F43.10 Post-traumatic stress disorder, unspecified; M32.9 Systemic lupus erythematosus, unspecified; M35.00 Sjogren syndrome, unspecified; E66.9 Obesity, unspecified; M79.7 Fibromyalgia; Z79.899 Other long term (current) drug therapy
CPT/HCPCS: 90853

== ENCOUNTER 2024-02-15 08:08 | Outpatient (RCR) | payer MEDICARE, MEDICAID, SELFPAY ==
--- NOTE | 2024-02-18 14:00 | BH.SGPN.GN ---
Behaviors/Verbalizations/Mental Status: []Pt alert and oriented, casually dressed and grooming disheveled. Eye contact good. Motor activity appropriate. Speech within normal limits. Affect congruent, mood content, positive. Thoughts linear, logical, no signs of hallucinations or delusions. Client Response/Progress/Benefit: []Pt responded well to session AEB sharing and listening attentively to others. Pt has been consistent with outpatient mental health appointments and medication compliance. Pt reports using positive self-talk, opposite action, gratitude, and self-care to help with managing mental health symptoms. Pt participated in group discussion defining affirmations and why they are important. Pt provided insight throughout clinician?s presentation of tips for writing personal affirmations and wrote their own affirmations, including ?I deserve doing things I enjoy and have start to?, ?I am a new mother who is still learning?, and ?I am building a better schedule for myself while remaining flexible?. Pt appeared to benefit from increased knowledge of affirmation writing skills and creating their own affirmation statements to remind themselves of outside tx environment. Will continue aftercare tx to promote consistent mental health maintenance and prevent decompensation. Narrative Note: []
--- NOTE | 2024-02-25 14:00 | BH.SGPN.GN ---
Behaviors/Verbalizations/Mental Status: []Pt alert and oriented, casually dressed and groomed. Eye contact good. Motor activity appropriate. Speech within normal limits. Affect congruent, mood anxious and dysthymic. Thoughts linear, logical, no signs of hallucinations or delusions. Client Response/Progress/Benefit: [] Pt receptive of session, engaged throughout. Pt shared she did not attend an outpatient therapy session this week and she has not been consistent with meds but is planning to and is using coping skills. These skills included: taking breaks, engaging in hobbies/interests, and positive self-talk. Receptive of discussion on ?Chapters of my life? poem. Pt contributed to the discussion of the different chapters one may go through and how they connect with current mental health progress. Pt reflected and identified their current chapter as ?2.5? and noted ?sometimes I choose to take the same path and pretend I don?t see the hole coming?. Identified that taking more time to engage in self-care would help with getting to thee next chapter. Pt seemed to benefit from support from peers and increasing understanding of ?Chapters of my life?. Will continue IOP aftercare to maintain gains and prevent decompensation. Narrative Note: []
--- NOTE | 2024-03-03 14:00 | BH.SGPN.GN ---
Behaviors/Verbalizations/Mental Status: []Pt alert and oriented, casually dressed and groomed. Eye contact good. Motor activity appropriate. Speech within normal limits. Affect congruent, mood euthymic. Thoughts linear, logical, no signs of hallucinations or delusions. Client Response/Progress/Benefit: []Pt receptive of session, engaged throughout. Pt stated feeling accomplished today. pt reported she met with her therapist and psychiatrist. Client stated she has been using opposite action and emotion regulation skills to help with transition to having her fiance's six children stay with them for the summer. Client stated she feels like she is handling her emotions better despite the added stress. Receptive of discussion on personal accountability and its importance in maintaining mental health stability. Engaged in brainstorming strategies for improving ability to hold themselves accountable and participated in the activity. Pt seemed to benefit from support from peers and increasing understanding of personal accountability benefits and strategies. Will continue IOP aftercare group to maintain gains and prevent decompensation.
--- NOTE | 2024-03-10 14:00 | BH.SGPN.GN ---
Behaviors/Verbalizations/Mental Status: []Pt alert and oriented, disheveled appearance. Eye contact good. Motor activity appropriate. Speech within normal limits. Affect congruent, mood stressed. Thoughts linear, logical, no signs of hallucinations or delusions. Client Response/Progress/Benefit: []Pt responded well to session, Pt reports she has not been taking her medications consistently and pt has missed a few counseling appointments. Pt is in the process of getting a new therapist. Pt shared a recent stressor with the group and received support from peers and cattle knocker. Pt also reflected on the coping skills she is using such as being assertive, but pt?s familial stressors continue to impact her mood. Pt engaged well during the discussion of the components of self-compassion. Pt connected with the benefits of self-compassion and participated in the activity of reframing a recent setback using self-compassion. Pt receptive to feedback from cattle knocker on self-compassion not being self-pity. Pt appeared to benefit from practicing self-compassion and connecting with peers. Will discharge from [facility] aftercare as pt has completed the 8-week program. Narrative Note: []
--- NOTE | 2024-03-28 15:19 | BH.MTP ---
Master Treatment Plan Patient Information Program Physician:: Dr. Coni Strange Primary Therapist:: REA Poe
== END 2024-03-11 07:30 | disposition home or self-care (01) ==
LOC: BHOG 08:08
PROVIDERS: PCP Internal Medicine; Referring Provider Psychiatry & Neurology Psychiatry; Visit Provider Psychiatry & Neurology Psychiatry
DX: F31.9 Bipolar disorder, unspecified (principal); F60.3 Borderline personality disorder; F41.1 Generalized anxiety disorder; F43.10 Post-traumatic stress disorder, unspecified; M32.9 Systemic lupus erythematosus, unspecified; E66.9 Obesity, unspecified; M79.7 Fibromyalgia; Z79.899 Other long term (current) drug therapy
CPT/HCPCS: 90853

== ENCOUNTER 2024-04-27 21:47 | Emergency (ER) | payer MEDICARE, MEDICAID, SELFPAY ==
[2024-04-27 21:48] VITALS: BP 165/95; PULSE 86; RESP 18; TEMP 36.8; O2SAT 98; BMI 51.8
[2024-04-27 22:08] LABS: Mucous, Urine 0 SEEN /hpf (<or=2+); Red Blood Cells-Urine 0 SEEN /hpf (0-5)
[2024-04-27 22:11] LABS: Absolute Lymphocyte Count 1.88 X10^3/uL (0.83-4.51); Absolute Neutrophil Count 5.2 X10^3/uL (2.0-7.7); Basophil# 0.03 X10^3/uL; Basophil% 0.4 % (0-1); Eosinophils% 2.5 % (0-5); Hematocrit 37.2 % (37-47); Hemoglobin 12.1 g/dL (12.0-15.0); Lymphocyte # 1.88 X10^3/ul (0.83-4.51); Lymphocyte % 23.9 % (19-41); Mean Corp Hgb Conc 32.5 g/dL (32-36); Mean Corpuscular Hgb 28.3 pg (27.0-32.0); Mean Corpuscular Volume 86.9 fL (81-99); Monocyte# 0.44 X10^3/uL; Monocyte% 5.6 % (0-10); NRBC Flagged by Analyzer 0 % (0-5); Neutrophil # 5.19 X10^3/uL (2.7-7.7); Neutrophil % 66.1 % (47-70); Platelet Count 376 K/mm3 (150-450); RBC Distribution Width CV 14.6 % (11.6-14.6); RBC Distribution Width SD 46.4 fl (35.1-43.9); Red Blood Count 4.28 M/mm3 (4.2-5.4); White Blood Count 7.9 K/mm3 (4.4-11.0)
--- NOTE | 2024-04-27 22:20 | CT_ITS ---
EXAM: CT ABDOMEN AND PELVIS WITH INTRAVENOUS CONTRAST CLINICAL INDICATION: Abdominal pain TECHNIQUE: Helically acquired images were obtained of the abdomen and pelvis with intravenous contrast. This CT exam was performed using one or more of the following dose reduction techniques: automated exposure control, adjustment of the mA and/or kV according to patient size, and/or use of iterative reconstruction technique. CONTRAST: IV 100mL Isovue-300 RADIATION DOSE: CTDIvol = 26.70 mGy, DLP = 1812.77 mGy-cm COMPARISON: CT abdomen pelvis 07/23/2023 FINDINGS: LOWER THORAX: Unremarkable. Lung bases are clear. No cardiomegaly. No significant pericardial effusion. ABDOMEN: LIVER: Hepatomegaly. GALLBLADDER AND BILE DUCTS: Unremarkable. No calcified gallstones. No gallbladder distention or wall edema. No intra- or extrahepatic biliary ductal dilation. PANCREAS: Unremarkable. No focal cystic or solid mass. No inflammation around the pancreas. SPLEEN: Unremarkable. Normal size without focal cystic or solid mass. ADRENALS: Unremarkable. No nodules. KIDNEYS AND URETERS: Unremarkable. Normal renal size and position. No hydronephrosis. STOMACH AND BOWEL: Unremarkable. No stomach or bowel distention. No focal inflammatory change. PELVIS: APPENDIX: The appendix is normal. BLADDER: Unremarkable. REPRODUCTIVE: Unremarkable as visualized. No mass. ABDOMEN and PELVIS: INTRAPERITONEAL SPACE: Unremarkable. No ascites or other fluid collection. No free air. BONES/JOINTS: Unremarkable. No suspicious lytic or blastic abnormality. SOFT TISSUES: Unremarkable. No discrete abdominal or pelvic wall hernia. VASCULATURE: Unremarkable. Abdominal aorta is non-dilated. LYMPH NODES: Unremarkable. No enlarged lymph nodes. CT/Abdomen/Pelvis W IV Cont ONLY IMPRESSION: 1. No acute abnormalities identified in the abdomen/pelvis. 2. Hepatomegaly. Electronically Signed: Ced Carrillo MD at 23:55 EDT ,
[2024-04-27 22:22] LABS: Color, Urine Yellow (Yellow); Glucose, Dipstick Normal (Normal); Ketone-Dipstick Negative (Negative); Leukocyte Esterase-Dipstick 25 /ul (Negative); Nitrite-Dipstick Positive (Negative); Occult Blood-Urine Negative /ul (Negative); Protein-Dipstick Negative (Negative); Urine Bilirubin Dipstick Negative (Negative); Urine Clarity Sl. Cloudy (Clear); Urine Urobilinogen Normal (Normal)
[2024-04-27 22:30] LABS: Internal QC Validated? YES +Cl - CLEAR BKGD; Pregnancy, Serum, hCG Quali. NEGATIVE Negative
[2024-04-27] MEDS: 0.9% Normal Saline (1000mL) 1,000 ML 999 ML IV (22:31)
[2024-04-27] MEDS: Morphine 4 MG/ML Syringe IV ×2 (22:32→23:52)
[2024-04-27] MEDS: Ondansetron 4 MG/2 ML Vial IV ×2 (22:32→23:52)
--- NOTE | 2024-04-27 22:50 | ED.VIS.GI ---
HPI HPI - GI History of Present Illness Chief Complaint: Nausea/Vomiting Informant: patient Abdominal Pain/Flank Pain Onset: Today Context: Gradual Onset Timing: Continuous Quality: Cramping and - (Tightness) Location: Epigastric, RUQ and LUQ Worsened by: Nothing Relieved by: Nothing Nausea/Vomiting/Emesis GI Symptom: Positive for Nausea and Vomiting Onset: Today Quality: Positive for Nonbilious; Negative for Blood streaks, Coffee ground or Hematemesis Diarrhea/Melena/Hematochezia GI Symptom: Negative for Diarrhea, Melena or Hematochezia Associated Symptoms Associated Symptoms: Negative for Dysuria, Frequency or Hematuria LMP: 03/27/2024 Narrative Narrative: Patient presents with abdominal pain, nausea, and vomiting that began today. Patient describes it as cramping and tightness. Patient states it is mainly over her epigastric area and upper abdomen. Patient states nothing makes it better and nothing makes it worse. Patient admits to some nausea and vomiting. Patient denies any hematemesis or coffee-ground emesis. Patient denies any diarrhea, melena, or hematochezia. Patient states the first day of her last menstrual period was 03/27/2024. Patient denies any urinary complaints. [facility] Medical History (Updated 04/28/24 @ 00:[address] Ronald Jones, ) Cannabis use disorder, mild, abuse Alcohol use disorder Obstructive sleep apnea History of Sjogren's disease PTSD (post-traumatic stress disorder) Generalized anxiety disorder Bipolar disorder, unspecified Borderline personality disorder Home Medications ?Medication ?Instructions ?Recorded ?Last Taken ?Type ciprofloxacin HCl 500 mg tablet 500 mg PO BID #14 TABLETS 04/28/24 Unknown Rx promethazine 25 mg rectal 25 mg MD Q6H PRN PRN Nausea ##6 04/28/24 Unknown Rx suppository (Promethegan) Allergy/AdvReac Type Severity Reaction Status Date / Time diphenhydramine (From AdvReac Other Verified 12/02/23 09:26 Benadryl) methylphenidate (From AdvReac Other Verified 12/02/23 09:26 Ritalin) Penicillins AdvReac Rash Verified 12/02/23 09:26 Sulfa (Sulfonamide AdvReac Rash Verified 12/02/23 09:26 Antibiotics) Surgical History (Updated 04/27/24 @ 23:[address] Ronald Jones, DO) S/P ORIF (open reduction internal fixation) fracture Social History (Updated 04/27/24 @ 23:[address] Ronald Jones DO) Smoking Status: Current every day smoker tobacco type: cigarettes and e-cigarettes substance use type: marijuana ROS ROS ED Constitutional Constitutional ED: Denies chills or fever(s) Eyes Eyes: Denies blurry vision or change in vision ENT ENT ED: Denies rhinorrhea or sore throat Cardiovascular Cardiovascular: Denies chest pain or palpitations Respiratory/Chest Respiratory/Chest: Reports dyspnea; Denies cough Gastrointestinal Gastrointestinal: Reports abdominal pain, nausea and vomiting; Denies diarrhea or melena Genitourinary Genitourinary ED: Denies dysuria or hematuria Musculoskeletal Musculoskeletal: Reports back pain; Denies neck pain Integumentary Denies abscess or rash Neurologic Neurologic: Reports headache(s); Denies weakness Allergic/Immunologic Allergic/Immunologic ED: Denies mouth swelling or urticaria EXAM Physical Exam Const Vital Signs: 04/27/24 21:48 04/27/24 23:48 Temperature 98.2 F Temperature Source Temporal Pulse Rate 86 82 Respiratory Rate 18 18 Blood Pressure 165/95 H 121/73 H Blood Pressure Mean 118 89 Pulse Ox 98 99 Oxygen Delivery Method Room Air Room Air Positive well nourished and well developed General Appearance ED: well developed and NAD HEENT Reports moist mucous membranes Neck supple and no JVD Resp normal respiratory effort and clear to auscultation bilaterally Cardio regular rate and regular rhythm GI non-distended Palpation: soft and tender epigastric, LUQ and RUQ; Negative for guarding or rebound tenderness present Neuro CN's II-XII intact bilaterally, moves all extremities and no sensory deficits noted Sensorium / Orientation: alert Motor Exam: strength 5/5 throughout Psych mental status grossly normal and thought process normal MDM MDM MDM Narrative Medical decision making narrative: Differential diagnosis includes pancreatitis, gastritis, peptic ulcer disease, cholecystitis, cholelithiasis, pyelonephritis, urinary tract infection, and gastroenteritis. CBC will be obtained to assess for leukocytosis and anemia. Comprehensive metabolic profile will be obtained to assess for hepatic function, renal function, and electrolyte abnormality. Urinalysis will be obtained to assess for urinary tract infection and hematuria. Serum hCG will be obtained to assess for . Lipase will be obtained to assess for pancreatitis. CT scan of the abdomen pelvis will be obtained to assess for bowel obstruction, perforation, pancreatitis, and cholecystitis. Lab Data Attestation: I reviewed the patient's lab results. Lab results narrative: CBC was reviewed and was within normal limits. Comprehensive metabolic profile was reviewed. Glucose was elevated at 259. The remainder was essentially within normal limits. Lipase was reviewed and was normal at 27. Serum hCG was reviewed and was negative. Urinalysis was reviewed. Leukocyte esterase was 25. There were 10-25 white blood cells and 3+ bacteria. There are positive nitrates. Labs: Laboratory Results - last 24 hr 04/27/24 21:58 WBC 7.9 RBC 4.28 Hgb 12.1 Hct 37.2 MCV 86.9 MCH 28.3 MCHC 32.5 RDW Std Deviation 46.4 H RDW Coeff of Maria Esther 14.6 Plt Count 376 MPV 10.0 Immature Gran % (Auto) 1.500 H Neut % (Auto) 66.1 Lymph % (Auto) 23.9 [place] % (Auto) 5.6 Eos % (Auto) 2.5 Baso % (Auto) 0.4 Absolute Neuts (auto) 5.2 Absolute Lymphs (auto) 1.88 Nucleated RBC % 0 Sodium 137 Potassium 4.5 Chloride 108 H Carbon Dioxide 24.0 Anion Gap 5 BUN 11 Creatinine 0.64 Estim Creat Clear Calc 166.87 Est GFR (MDRD) Af Amer 142 Est GFR (MDRD) Non-Af 117 BUN/Creatinine Ratio 17.3 Glucose 259 H Calcium 8.6 Total Bilirubin 0.20 AST 43 H ALT 33 Alkaline Phosphatase 98 Total Protein 7.1 Albumin 3.1 L Globulin 4.0 Albumin/Globulin Ratio 0.8 L Lipase 27 Serum , Qual NEGATIVE Urine Color Yellow Urine Clarity Sl. Cloudy Urine pH 6.0 Ur Specific [place] 1.020 Urine Protein Negative Urine Glucose (UA) Normal Urine Ketones Negative Urine Occult Blood Negative Urine Nitrite Positive H Urine Bilirubin Negative Urine Urobilinogen Normal Ur Leukocyte Esterase 25 H Urine RBC 0 SEEN Urine WBC 10-25 SEEN Ur Squamous Epith Cells 0-5 SEEN Urine Bacteria 3+ Urine Mucus 0 SEEN Radiography Diagnostic Testing: Clinical Impression(s) from Imaging Studies Abdomen/Pelvis CT 04/27/24 22:20 IMPRESSION: 1. No acute abnormalities identified in the abdomen/pelvis. 2. Hepatomegaly. Electronically Signed: Ced Carrillo MD at 23:55 EDT , Additional Tests and Interventions Additional Tests or Interventions: Urine culture was ordered. Treatment and Re-Evaluation :: Patient was given IV fluids, morphine, and Zofran. Patient had minimal improvement with this. Patient was given a repeat dose of morphine and Zofran. Patient was advised of her findings. Patient states her pain is improved but she is still nauseated. Patient was given a dose of Phenergan. Patient was given a dose of Cipro here. Patient was given a prescription for Cipro. Patient was given a prescription for Phenergan suppositories. Patient was instructed to follow-up with her primary care physician in 5 to 7 days. Patient was instructed to return if worse in any way. Patient understood and was agreeable with the plan. All questions were answered. Discharge Plan Triage Chief Complaint: Nausea/Vomiting ED Provider: Ronald Jones Dx/Rx/DC Orders Clinical Impression: Abdominal pain, Urinary tract infection Instructions: ED Cystitis Female Adult, ED Vomiting (Adult), ED Epigastric Pain Uncertain Cause Prescriptions: New promethazine [Promethegan] 25 mg suppository 25 mg MD Q6H PRN PRN (Reason: Nausea) Qty: 6 0RF ciprofloxacin HCl 500 mg tablet 500 mg PO BID Qty: 14 0RF Primary Care Provider: Demetria Fernandez Referrals: Demetria Fernandez MD [Primary Care Provider] - 5-7 Days Print Language: Yi Disposition Disposition: Home, Self Care
[2024-04-27 22:52] LABS: ALB/GLOB Ratio 0.8 RATIO (0.9-2.4); AST(SGOT) 43 U/L (15-37); Alanine Aminotransfer ALT/SGPT 33 U/L (13-56); Albumin, Serum 3.1 g/dL (3.2-5.0); Alkaline Phosphatase 98 U/L (45-117); Anion Gap 5 (5-15); BUN 11 mg/dL (7-18); BUN/Creat Ratio 17.3 RATIO (10-20); Calcium,Total 8.6 mg/dL (8.5-10.1); Chloride 108 mmol/L (98-107); Creatinine, Serum 0.64 mg/dL (0.55-1.02); EST Glomerular Filtration Rate 117 mL/min (>60); Est Glom Filt Rate - Afr Amer 142 mL/min (>60); Estimated Creatinine Clearance 166.87 ml/min; Glucose 259 mg/dL (74-106); Potassium 4.5 mmol/L (3.5-5.1); Protein, Total 7.1 g/dL (6.4-8.2); Sodium Level 137 mmol/L (136-145)
[2024-04-27 22:53] LABS: Bacteria 3+ /hpf (None Seen); Squamous Epithelial Cells - UA 0-5 SEEN /hpf (5-10); White Blood Cells 10-25 SEEN /hpf (0-5)
[2024-04-27 23:02] LABS: Lipase 27 U/L (13-75)
[2024-04-27 23:48] VITALS: BP 121/73; PULSE 82; RESP 18; O2SAT 99
[2024-04-28] MEDS: Ciprofloxacin 500 MG Tablet PO (00:11)
[2024-04-28 00:14] VITALS: BP 114/72; PULSE 70; RESP 18; TEMP 36.8; O2SAT 100
[2024-04-28] MEDS: proMETHazine 25 MG/ML Syringe 6.25 MG IM (00:21)
== END 2024-04-28 00:50 | disposition home or self-care (01) ==
PROVIDERS: Emergency Provider Emergency Medicine; PCP Internal Medicine; Visit Provider Emergency Medicine
DX: R10.9 Unspecified abdominal pain (principal); N39.0 Urinary tract infection, site not specified; F17.210 Nicotine dependence, cigarettes, uncomplicated; F17.290 Nicotine dependence, other tobacco product, uncomplicated; G47.33 Obstructive sleep apnea (adult) (pediatric)
CPT/HCPCS: 74177; 80053; 81001; 83690; 84703; 85025; 87077; 87086; 87088; 87186; 96361; 96372; 96374; 96375; 96376; 99283; J7030; Q9967; A4216; J2405